=== PATIENT | female | born 1975 | race Caucasian/White ===

== ENCOUNTER → 2019-05-11 11:02 | Outpatient (BNVA) | payer MEDICARE, SELFPAY | PROVIDERS: Family Provider Pediatrics; Visit Provider Nurse Practitioner Psychiatric/Mental Health | DX: F33.2 Major depressive disorder, recurrent severe without psychotic features (principal); F41.1 Generalized anxiety disorder; F50.81 Binge eating disorder | CPT/HCPCS: 99213 ==

== ENCOUNTER → 2019-08-12 08:01 | Outpatient (BNVA) | payer MEDICARE, SELFPAY | PROVIDERS: Family Provider Pediatrics; Visit Provider Social Worker | DX: F50.81 Binge eating disorder (principal); F33.2 Major depressive disorder, recurrent severe without psychotic features; F41.1 Generalized anxiety disorder | CPT/HCPCS: 90834 ==

== ENCOUNTER → 2020-03-17 09:14 | Outpatient (BNVA) | payer MEDICARE, SELFPAY | PROVIDERS: Family Provider Pediatrics; PCP Nurse Practitioner Family; Visit Provider Registered Nurse | DX: Z51.81 Encounter for therapeutic drug level monitoring (principal); Z79.01 Long term (current) use of anticoagulants; E66.01 Morbid (severe) obesity due to excess calories; I10 Essential (primary) hypertension; R73.03 Prediabetes; E55.9 Vitamin D deficiency, unspecified; E03.9 Hypothyroidism, unspecified; F41.1 Generalized anxiety disorder; F33.2 Major depressive disorder, recurrent severe without psychotic features; G47.00 Insomnia, unspecified | CPT/HCPCS: 80053; 81000; 82306; 83036; 84443; 85025; 85610 ==

== ENCOUNTER → 2020-04-28 12:02 | Outpatient (BNVA) | payer MEDICARE, SELFPAY | PROVIDERS: Family Provider Pediatrics; PCP Nurse Practitioner Family; Visit Provider Registered Nurse | DX: I82.409 Acute embolism and thrombosis of unspecified deep veins of unspecified lower extremity (principal) | CPT/HCPCS: 85610 ==

== ENCOUNTER → 2020-05-04 15:39 | Outpatient (BNVA) | payer MEDICARE, SELFPAY | PROVIDERS: Family Provider Pediatrics; PCP Nurse Practitioner Family; Visit Provider Registered Nurse | DX: I82.409 Acute embolism and thrombosis of unspecified deep veins of unspecified lower extremity (principal) | CPT/HCPCS: 85610 ==

== ENCOUNTER → 2020-05-06 12:02 | Outpatient (BNVA) | payer MEDICARE, SELFPAY | PROVIDERS: Family Provider Pediatrics; PCP Nurse Practitioner Family; Visit Provider Registered Nurse | DX: I82.409 Acute embolism and thrombosis of unspecified deep veins of unspecified lower extremity (principal) | CPT/HCPCS: 85610 ==

== ENCOUNTER → 2020-05-09 15:40 | Outpatient (BNVA) | payer MEDICARE, SELFPAY | PROVIDERS: Family Provider Pediatrics; PCP Registered Nurse; Visit Provider Family Medicine | DX: I82.409 Acute embolism and thrombosis of unspecified deep veins of unspecified lower extremity (principal) | CPT/HCPCS: 85610 ==

== ENCOUNTER → 2020-06-09 17:03 | Outpatient (BNVA) | payer MEDICARE, SELFPAY | PROVIDERS: Family Provider Pediatrics; PCP Registered Nurse; Visit Provider Nurse Practitioner Family | DX: M25.562 Pain in left knee (principal); W17.89XA Other fall from one level to another, initial encounter; F17.211 Nicotine dependence, cigarettes, in remission | CPT/HCPCS: 73562 ==

== ENCOUNTER → 2020-08-30 15:36 | Outpatient (BNVA) | payer MEDICARE, SELFPAY | PROVIDERS: Family Provider Pediatrics; PCP Registered Nurse; Visit Provider Family Medicine | DX: M32.9 Systemic lupus erythematosus, unspecified (principal); R14.0 Abdominal distension (gaseous) | CPT/HCPCS: 80053; 85025; 85651; 86038; 86140; 86431 ==

== ENCOUNTER → 2020-09-27 14:37 | Outpatient (BNVA) | payer MEDICARE, SELFPAY | PROVIDERS: Family Provider Pediatrics; PCP Family Medicine; Visit Provider Family Medicine | DX: E83.51 Hypocalcemia (principal); R53.83 Other fatigue; K58.2 Mixed irritable bowel syndrome; Z68.41 Body mass index [BMI] 40.0-44.9, adult | CPT/HCPCS: 82310; 83970; 84443 ==

== ENCOUNTER → 2020-09-30 14:26 | Outpatient (BNVA) | payer MEDICARE, SELFPAY | PROVIDERS: Family Provider Pediatrics; PCP Family Medicine; Visit Provider Family Medicine | DX: E83.51 Hypocalcemia (principal); R53.83 Other fatigue | CPT/HCPCS: 82310; 83970 ==

== ENCOUNTER → 2020-10-27 09:16 | Outpatient (BNVA) | payer MEDICARE, SELFPAY | PROVIDERS: Family Provider Pediatrics; PCP Family Medicine; Visit Provider Internal Medicine Rheumatology | DX: M32.9 Systemic lupus erythematosus, unspecified (principal); D68.61 Antiphospholipid syndrome; Z79.899 Other long term (current) drug therapy; I82.409 Acute embolism and thrombosis of unspecified deep veins of unspecified lower extremity; Z11.59 Encounter for screening for other viral diseases; Z11.1 Encounter for screening for respiratory tuberculosis; R76.8 Other specified abnormal immunological findings in serum; M70.61 Trochanteric bursitis, right hip; M70.62 Trochanteric bursitis, left hip; Y93.9 Activity, unspecified; M77.11 Lateral epicondylitis, right elbow; M75.51 Bursitis of right shoulder; R53.83 Other fatigue; Z71.89 Other specified counseling | CPT/HCPCS: 99205 ==

== ENCOUNTER 2020-10-27 11:58 | Outpatient (CLI) | payer MEDICARE, SELFPAY ==
--- NOTE | 2020-10-27 12:05 | XR_ITS ---
WS: [id number] Left foot, 3 views, 10/27/2020 Clinical Data: Z79.899 - Other chcf (current) drug therapy Comparison: None. Findings: No fractures or dislocations are seen. No bone destruction or erosion is noted. There is a bunion at the head of the left first metatarsal.There is a small Achilles spur. XR/XR foot LT min 3V* [id number] Impression: Bunion at the head of left first metatarsal.
--- NOTE | 2020-10-27 12:05 | XR_ITS ---
WS: [id number] Right foot, 3 views, 10/27/2020 Clinical Data: Z79.899 - Other half-way (current) drug therapy Comparison: None. Findings: No fractures or dislocations are seen. No bone destruction or erosion is noted. There is a bunion at the head of the right first metatarsal.There is a plantar spur and an Achilles spur. XR/XR foot RT min 3V* [id number] Impression: Bunion at the head of the right first metatarsal.
--- NOTE | 2020-10-27 12:05 | XR_ITS ---
WS: [id number] Right knee, 3 views, 10/27/2020 Clinical Data: Z79.899 - Other longterm (current) drug therapy Comparison: None. Findings: No fractures or dislocations are seen. The joint spaces are normal. The patella is intact. The soft t issues are unremarkable. XR/XR knee RT 3V* [id number] Impression: Negative right knee. Kellgren-Hilton Classification: grade 0 (none): definite absence of x-ray adri nges of osteoarthritis
--- NOTE | 2020-10-27 12:05 | XR_ITS ---
WS: [id number] Pelvis, AP view, 10/27/2020 Clinical Data: Z79.899 - Other fpc (current) drug therapy Comparison: None. Findings: No fractures or dislocations are seen. The SI joints and pubic symphysis are intact. The soft tissues are not remarkable. There is acetabular lipping bilaterally. The hips show minimal narrowing, sclerosis or cyst formation . The patient has bilateral fallopian tube occlusion devices. XR/XR pelvis 1-2V* [id number] Impression: Mild bilateral osteoarthritis of the hips.
[2020-10-27 12:46] LABS: Add Urine Culture? No; Bacteria Urine 1+ /hpf; Bilirubin Urine Neg (Negative); Blood Urine Neg (Negative); Glucose Urine UA Norm (Normal); Ketones Urine Negative (Negative); Leukocyte Esterase Urine Trace (Negative); Nitrate Urine Negative (Negative); Protein Urine Neg (Negative); Squamous Epithelial Cell Urine 0-4 /hpf (0-5); Urine Appearance SL Hazy (CLEAR); Urine Color Yellow (Yellow); Urobilinogen Urine Norm (Negative); WBC Urine 0-4 /hpf (0-5); pH Urine 5 (5-7)
[2020-10-27 12:54] LABS: C Reactive Protein 1.8 mg/L (0.0-4.9)
[2020-10-27 12:56] LABS: Urine Creatinine 140 mg/dL (28-217); Urine Protein Random 8 mg/dL
[2020-10-27 13:09] LABS: 25 Hydroxy Vitamin D 31 ng/mL (30-100)
[2020-10-27 13:32] LABS: Erythrocyte Sedimentation Rate 14 mm/hr (0-15)
[2020-10-27 13:38] LABS: Complement C3 116 mg/dL (90-180)
[2020-10-27 13:39] LABS: Hepatitis B Core AB, Total Non-Reactive (Nonreactive); Hepatitis B Surface Antigen Non-Reactive (Nonreactive); Hepatitis C Virus Antibody Non-Reactive (Nonreactive)
[2020-10-29 16:24] LABS: Quantiferon Mitogen >10.00 IU/mL; Quantiferon Nil 0.02 IU/mL; Quantiferon Plus TB2 0.01 IU/mL; Quantiferon TB Gold NEGATIVE (NEGATIVE)
[2020-10-29 19:42] LABS: HLA-B27 NEGATIVE (NEGATIVE)
== END 2020-10-27 11:59 | disposition home or self-care (01) ==
LOC: RAD 12:03 → LAB 12:06
PROVIDERS: PCP Family Medicine; Visit Provider Internal Medicine Rheumatology
DX: M19.90 Unspecified osteoarthritis, unspecified site (principal); M32.9 Systemic lupus erythematosus, unspecified; M45.9 Ankylosing spondylitis of unspecified sites in spine; Z79.899 Other long term (current) drug therapy; R76.8 Other specified abnormal immunological findings in serum; Z11.59 Encounter for screening for other viral diseases
CPT/HCPCS: 36415; 72170; 73562; 73630; 81001; 82306; 82570; 84156; 85651; 86140; 86160; 86480; 86704; 86803; 86812; 87340

== ENCOUNTER → 2020-10-28 16:18 | Outpatient (BNVA) | payer MEDICARE, SELFPAY | PROVIDERS: PCP Family Medicine; Visit Provider Registered Nurse Neonatal Intensive Care | DX: Z20.822 Contact with and (suspected) exposure to COVID-19 (principal) | CPT/HCPCS: 87635 ==

== ENCOUNTER → 2020-12-21 14:48 | Outpatient (BNVA) | payer MEDICARE, SELFPAY | PROVIDERS: PCP Family Medicine; Visit Provider Internal Medicine Rheumatology | DX: M32.9 Systemic lupus erythematosus, unspecified (principal); D68.61 Antiphospholipid syndrome; I82.409 Acute embolism and thrombosis of unspecified deep veins of unspecified lower extremity; Z79.899 Other long term (current) drug therapy; Z71.89 Other specified counseling | CPT/HCPCS: 80076; 82565; 85025; 86140; 99214 ==

== ENCOUNTER → 2021-05-31 08:27 | Outpatient (BNVA) | payer MEDICARE, SELFPAY | PROVIDERS: PCP Family Medicine; Visit Provider Internal Medicine Rheumatology | DX: M32.9 Systemic lupus erythematosus, unspecified (principal); D68.61 Antiphospholipid syndrome; M18.9 Osteoarthritis of first carpometacarpal joint, unspecified; G89.29 Other chronic pain; M25.562 Pain in left knee; M25.551 Pain in right hip; Z79.899 Other long term (current) drug therapy; Z86.718 Personal history of other venous thrombosis and embolism; Z79.01 Long term (current) use of anticoagulants; Z71.89 Other specified counseling; Z87.891 Personal history of nicotine dependence | CPT/HCPCS: 80076; 82565; 85025; 86140; 99214 ==

== ENCOUNTER 2021-05-31 09:52 | Outpatient (CLI) | payer MEDICARE, SELFPAY ==
[2021-05-31 10:37] LABS: Basophils # 0.1 10^3/uL (0.0-0.1); Basophils % 0.9 %; Eosinophils # 0.2 10^3/uL (0.0-0.8); Eosinophils % 2.8 %; Hematocrit 43.6 % (37.0-47.0); Hemoglobin 14.5 g/dL (11.5-15.3); Lymphocytes # 1.5 10^3/uL (0.8-4.8); Lymphocytes % 17.9 %; Mean Corpuscular HGB Conc 33.3 g/dL (30.0-36.0); Mean Corpuscular Hemoglobin 31.3 pg (28.0-34.0); Mean Corpuscular Volume 94.2 fl (81-99); Mean Platelet Volume 9.3 fL (7.4-10.4); Monocytes # 0.9 10^3/uL (0.2-0.9); Monocytes % 10.1 %; Neutrophils # 5.74 10^3/uL (1.8-7.7); Neutrophils % 67.8 %; Nucleated Red Blood Cells % 0 %; Platelet Count 212 10^3/cmm (130-400); Red Blood Count 4.63 10^6/uL (4.1-5.3); Red Cell Distribution Width 13.2 % (12.1-15.1); White Blood Count 8.5 10^3/uL (4.0-10.0)
[2021-05-31 11:01] LABS: Alanine Aminotransferase 27 U/L (0-33); Albumin Level 4.1 g/dL (3.5-5.2); Alkaline Phosphatase 54 IU/L (35-105); Aspartate Amino Transferase 21 U/L (0-32); Globulin 3.2 g/dL (1.3-4.6); Glomerular Filtration Rate 90.1 mL/min (90-130); Total Bilirubin 0.3 mg/dL (0.15-1.2); Total Protein 7.3 g/dL (6.6-8.7)
== END 2021-05-31 09:53 | disposition home or self-care (01) ==
LOC: LAB 09:57
PROVIDERS: PCP Family Medicine; Visit Provider Internal Medicine Rheumatology
DX: M32.9 Systemic lupus erythematosus, unspecified (principal); Z79.899 Other long term (current) drug therapy
CPT/HCPCS: 80076; 82565; 85025; 86140; 99214

== ENCOUNTER 2021-08-02 20:00 | Outpatient (CLI) | payer MEDICARE, SELFPAY | END 2021-08-02 20:01 | disposition home or self-care (01) | LOC: SLEEP 08-03 09:31 | PROVIDERS: PCP Family Medicine; Visit Provider Family Medicine | DX: G47.10 Hypersomnia, unspecified (principal); G47.33 Obstructive sleep apnea (adult) (pediatric) | CPT/HCPCS: 95810 ==

== ENCOUNTER 2021-09-19 15:06 | Outpatient (CLI) | payer MEDICARE, SELFPAY ==
[2021-09-19 17:20] LABS: Basophils # 0.1 10^3/uL (0.0-0.1); Basophils % 0.8 %; Eosinophils # 0.2 10^3/uL (0.0-0.8); Eosinophils % 2.8 %; Hematocrit 42.1 % (37.0-47.0); Hemoglobin 14.4 g/dL (11.5-15.3); Lymphocytes % 23.1 %; Mean Corpuscular HGB Conc 34.2 g/dL (30.0-36.0); Mean Corpuscular Hemoglobin 31.1 pg (28.0-34.0); Mean Corpuscular Volume 90.9 fl (81-99); Monocytes # 0.8 10^3/uL (0.2-0.9); Monocytes % 8.8 %; Neutrophils # 5.54 10^3/uL (1.8-7.7); Nucleated Red Blood Cells % 0 %; Platelet Count 238 10^3/cmm (130-400); Red Blood Count 4.63 10^6/uL (4.1-5.3); Red Cell Distribution Width 13.2 % (12.1-15.1); White Blood Count 8.7 10^3/uL (4.0-10.0)
[2021-09-19 18:25] LABS: Alanine Aminotransferase 27 U/L (0-33); Albumin Level 4.1 g/dL (3.5-5.2); Alkaline Phosphatase 54 IU/L (35-105); Aspartate Amino Transferase 19 U/L (0-32); C Reactive Protein 3.7 mg/L (0.0-4.9); Globulin 2.7 g/dL (1.3-4.6); Glomerular Filtration Rate 90.1 mL/min (90-130); Total Bilirubin 0.4 mg/dL (0.15-1.2); Total Protein 6.8 g/dL (6.6-8.7)
== END 2021-09-19 15:07 | disposition home or self-care (01) ==
LOC: LAB 15:10
PROVIDERS: PCP Family Medicine; Visit Provider Internal Medicine Rheumatology
DX: M19.90 Unspecified osteoarthritis, unspecified site (principal); M32.9 Systemic lupus erythematosus, unspecified; D68.61 Antiphospholipid syndrome; Z79.899 Other long term (current) drug therapy
CPT/HCPCS: 36415; 80076; 82565; 85025; 86140

== ENCOUNTER → 2021-09-20 09:13 | Outpatient (BNVA) | payer MEDICARE, SELFPAY | PROVIDERS: PCP Family Medicine; Visit Provider Internal Medicine Rheumatology | DX: Z79.899 Other long term (current) drug therapy (principal); R10.817 Generalized abdominal tenderness; G89.29 Other chronic pain; M25.562 Pain in left knee; M25.551 Pain in right hip; Z86.718 Personal history of other venous thrombosis and embolism; Z71.89 Other specified counseling; M32.9 Systemic lupus erythematosus, unspecified; D68.61 Antiphospholipid syndrome | CPT/HCPCS: 99214 ==

== ENCOUNTER 2021-09-21 09:19 | Emergency (ER) | payer MEDICARE, SELFPAY ==
[2021-09-21 09:39] VITALS: BP 140/96; PULSE 97; RESP 18; TEMP 37.4; O2SAT 96; BMI 46.5
[2021-09-21] MEDS: ketorolac 30 mg/mL INJ 15 MG IVP (11:07)
[2021-09-21] MEDS: sodium chloride 0.9% 500 ML IV (11:07)
--- NOTE | 2021-09-21 11:07 | ED_ITS ---
HPI - Abdominal Pain General: Chief Complaint: Abdominal Pain Stated Complaint: lower abdomen pain Time Seen by Provider: 09/21/21 10:29 History of Present Illness: 45-year-old female presents with abdominal pain. She reports it started in her lower abdominal region couple days ago and radiates into her back on her diffuse length. The pain seems to be more associated on the right side than the left. She denies any fever, chills. She reports some little bit looser stool but no katy diarrhea. She denies any urinary symptoms. She also denies any nausea, vomiting. Associated Symptoms: Denies chills, fever(s), nausea and vomiting Review of Systems Const: Denies: fever(s), chills or body aches Eyes: Denies: change in vision ENMT: Denies: throat pain Card: Denies: chest pain or palpitations Resp: Denies: dyspnea or productive cough GI: Reports: abdominal pain; Denies: nausea or vomiting : Denies: flank pain or difficulty voiding Musc: Denies: neck pain or back pain Skin/Breast: Denies: rash or pruritus Neuro: Denies: headache(s) or numbness in extremities PFSH ED PFSH: Medical History Acid reflux Binge eating disorder DVT (deep venous thrombosis) Essential hypertension Generalized anxiety disorder High risk medication use Immunization counseling Insomnia disorder Lupus SLE Major depressive disorder, recurrent severe without psychotic features Prediabetes Primary antiphospholipid syndrome SLE (systemic lupus erythematosus related syndrome) Family History Other Diabetes Palpitations Tachycardia Social History Smoking and tobacco status: never smoked Alcohol intake: current Alcohol intake frequency: holidays/special occasions only History of recent travel: No Physical Exam Const: COMMON NORMALS: no acute distress, average body habitus and patient oriented x3 HENMT: COMMON NORMALS: normocephalic and atraumatic HEAD & SCALP: normocephalic and atraumatic Resp: COMMON NORMALS: normal respiratory effort, No retractions and No use of accessory muscles Cardio: COMMON NORMALS: regular rate and regular rhythm RATE: regular rate RHYTHM: regular rhythm GI: COMMON NORMALS: Normal to inspection, nondistended, normoactive bowel sounds present, Soft to palpation and non-tender PALPATION: Yes Soft to palpation : COMMON NORMALS: Yes no CVA tenderness BLADDER/KIDNEY EXAM: Yes no CVA tenderness Back/Pelvis: COMMON NORMALS: no CVA tenderness Neuro: COMMON NORMALS: patient oriented x3 Course Vital Signs: Vital signs: Vital Signs Temperature 99.4 F 09/21/21 09:39 Pulse Rate 89 09/21/21 12:00 Respiratory Rate 16 09/21/21 12:00 Blood Pressure 114/82 09/21/21 12:00 Pulse Oximetry 97 09/21/21 12:00 MDM - Abdominal Pain Medical Decision Making Patient with no significant acute findings on her labs. Patient CT shows a complex left ovarian cyst however there is no other acute findings. Discussed with patient Tylenol, ibuprofen and warm heating pad and other [id number] treatment for ovarian cyst. If she continues to have problems she is to follow- up with her primary care provider or her pathology technologist. Patient stable and discharged home Lab Data : 09/21/21 11:09 09/21/21 11:09 Labs/Radiology: Radiology Impressions Abdomen/Pelvis CT 09/21/21 12:08 IMPRESSION: 1. Mildly complex LEFT ovarian cyst/hemorrhagic cyst measures 3.6 x 3.1 cm. 2. No free fluid in the pelvis. 3. Moderate chronic appearing changes of diverticulosis throughout the sigmoid colon. Numerous diverticula within the distal colon. Early changes of acute diverticulitis may not be apparent. At this time there is no evidence for acute diverticulitis or inflammation. 4. No evidence for appendicitis. Laboratory Results WBC 9.3 10^3/uL (4.0-10.0) 09/21/21 11:09 RBC 4.61 10^6/uL (4.1-5.3) 09/21/21 11:09 Hgb 14.4 g/dL (11.5-15.3) 09/21/21 11:09 Hct 41.6 % (37.0-47.0) 09/21/21 11:09 MCV 90.2 fl (81-99) 09/21/21 11:09 MCH 31.2 pg (28.0-34.0) 09/21/21 11:09 MCHC 34.6 g/dL (30.0-36.0) 09/21/21 11:09 RDW 13.1 % (12.1-15.1) 09/21/21 11:09 Plt Count 209 10^3/cmm (130-400) 09/21/21 11:09 MPV 9.7 fL (7.4-10.4) 09/21/21 11:09 Neut % (Auto) 72.0 % 09/21/21 11:09 Lymph % (Auto) 14.4 % 09/21/21 11:09 [place] % (Auto) 9.4 % 09/21/21 11:09 Eos % (Auto) 2.8 % 09/21/21 11:09 Baso % (Auto) 0.8 % 09/21/21 11:09 Neut # (Auto) 6.72 10^3/uL (1.8-7.7) 09/21/21 11:09 Lymph # (Auto) 1.3 10^3/uL (0.8-4.8) 09/21/21 11:09 [place] # (Auto) 0.9 10^3/uL (0.2-0.9) 09/21/21 11:09 Eos # (Auto) 0.3 10^3/uL (0.0-0.8) 09/21/21 11:09 Baso # (Auto) 0.1 10^3/uL (0.0-0.1) 09/21/21 11:09 Nucleated RBC % (auto) 0 % 09/21/21 11:09 Nucleated RBCs # 0.0 /100WBC 09/21/21 11:09 Sodium 138 mmol/L (136-145) 09/21/21 11:09 Potassium 4.6 mmol/L (3.5-5.1) 09/21/21 11:09 Chloride 102 mmol/L (98-107) 09/21/21 11:09 Carbon Dioxide 26 mmol/L (22-29) 09/21/21 11:09 Anion Gap 14.6 (5-19) 09/21/21 11:09 BUN 9 mg/dL (6-20) 09/21/21 11:09 Creatinine 0.7 mg/dL (0.5-0.9) 09/21/21 11:09 GFR Calculation 90.1 mL/min (90-130) 09/21/21 11:09 Glucose 96 mg/dL (65-115) 09/21/21 11:09 Calculated Osmolality 285 mOsm/kg (285-295) 09/21/21 11:09 Calcium 9.4 mg/dL (8.5-10.5) 09/21/21 11:09 Magnesium 1.8 mg/dL (1.7-2.3) 09/21/21 11:09 Total Bilirubin 0.6 mg/dL (0.15-1.2) 09/21/21 11:09 AST 15 U/L (0-32) 09/21/21 11:09 ALT 21 U/L (0-33) 09/21/21 11:09 Alkaline Phosphatase 54 IU/L (35-105) 09/21/21 11:09 Total Protein 7.1 g/dL (6.6-8.7) 09/21/21 11:09 Albumin 3.8 g/dL (3.5-5.2) 09/21/21 11:09 Globulin 3.3 g/dL (1.3-4.6) 09/21/21 11:09 Lipase 12 U/L (13-60) L 09/21/21 11:09 HCG, Qual Negative (Negative) 09/21/21 11:19 Urine Color Yellow (Yellow) 09/21/21 11:19 Urine Appearance Clear (CLEAR) 09/21/21 11:19 Urine pH 5 (5-7) 09/21/21 11:19 Ur Specific [place] 1.020 (1.005-1.030) 09/21/21 11:19 Urine Protein Neg (Negative) 09/21/21 11:19 Urine Glucose (UA) Norm (Normal) 09/21/21 11:19 Urine Ketones Negative (Negative) 09/21/21 11:19 Urine Blood Neg (Negative) 09/21/21 11:19 Urine Nitrate Negative (Negative) 09/21/21 11:19 Urine Bilirubin Neg (Negative) 09/21/21 11:19 Urine Urobilinogen Norm mg/dL (Negative) 09/21/21 11:19 Ur Leukocyte Esterase Negative (Negative) 09/21/21 11:19 Discharge Plan Discharge Patient Disposition: Home Clinical Impression: Complex cyst of left ovary Condition: Stable Prescriptions: No Action Benlysta 200 mg/mL auto-injector 200 mg SUBCUT Q7D Qty: 4 3RF Rx Instructions: On Wednesdays hydroxychloroquine 200 mg tablet 200 mg PO BID Qty: 60 3RF loratadine [Claritin] 10 mg tablet 10 mg PO DAILY 0RF folic acid 1 mg tablet 1 mg PO DAILY Qty: 90 3RF tramadol 50 mg tablet 50 mg PO TID PRN (Reason: pain) Qty: 30 0RF lisinopril 20 mg tablet 20 mg PO DAILY Qty: 90 1RF albuterol sulfate [ProAir HFA] 90 mcg/actuation HFA aerosol inhaler 2 puff inhalation Q6H PRN (Reason: shortness of breath or wheezing) Qty: 8.5 0RF dicyclomine 10 mg capsule 10 mg PO BID Qty: 180 1RF sertraline 100 mg tablet 20 mg PO DAILY 0RF prednisone 5 mg tablet 5 mg PO DAILY PRN (Reason: Arthritis Flare Up) 0RF warfarin 6 mg tablet See Rx Instructions .ROUTE .COMPLEX 0RF Rx Instructions: 6 mg orally On Sat, , , , Sat, Sun 9 mg orally On Saturday methotrexate sodium 2.5 mg tablet 15 mg PO Q7D 0RF Rx Instructions: On Fridays trazodone 100 mg tablet 200 mg PO BEDTIME 0RF Rx Instructions: Take two tablets at bedtime pantoprazole 40 mg tablet,delayed release (DR/EC) 40 mg PO BID 0RF Vitamin D3 25 mcg (1,000 unit) Capsule 25 mcg PO DAILY 0RF bupropion HCl 200 mg tablet sustained-release 12 hr 200 mg PO Q7D 0RF Rx Instructions: On Wednesdays Arthritis Pain (diclofenac) 1 % gel 2 g topical QID PRN (Reason: Pain) 0RF Rx Instructions: apply to single elbow, wrist or hand; for hand includes palm/fingers/back of hand Discharge Orders: Discharge ED (Routine); Ordered 09/21/21 Ordered By: Houston Norris Referrals: Kendy Smith DO [Primary Care Provider] - Discharge Diet: Advance as tolerated Discharge Activity: Resume usual activity Patient Instructions: Ovarian Cyst (ED), Opioid Safety Activity Restrictions/Additional Instructions: Tylenol or ibuprofen as needed for pain Heating pad to affected area as needed for pain Follow-up with your primary care provider or pathology technologist as needed Coding Level of Care Code ED Acid Maker for Chg Fwd Exam Detailed
[2021-09-21 11:36] LABS: Add Urine Microscopic? NO; Charge for UA Resulting for Rev
[2021-09-21 11:41] LABS: Urine Appearance Clear (CLEAR); Urine Color Yellow (Yellow); pH Urine 5 (5-7)
[2021-09-21 11:42] LABS: Basophils # 0.1 10^3/uL (0.0-0.1); Basophils % 0.8 %; Eosinophils # 0.3 10^3/uL (0.0-0.8); Eosinophils % 2.8 %; Hematocrit 41.6 % (37.0-47.0); Hemoglobin 14.4 g/dL (11.5-15.3); Lymphocytes # 1.3 10^3/uL (0.8-4.8); Lymphocytes % 14.4 %; Mean Corpuscular HGB Conc 34.6 g/dL (30.0-36.0); Mean Corpuscular Hemoglobin 31.2 pg (28.0-34.0); Mean Corpuscular Volume 90.2 fl (81-99); Mean Platelet Volume 9.7 fL (7.4-10.4); Monocytes # 0.9 10^3/uL (0.2-0.9); Monocytes % 9.4 %; Neutrophils # 6.72 10^3/uL (1.8-7.7); Nucleated Red Blood Cells % 0 %; Platelet Count 209 10^3/cmm (130-400); Red Blood Count 4.61 10^6/uL (4.1-5.3); Red Cell Distribution Width 13.1 % (12.1-15.1); White Blood Count 9.3 10^3/uL (4.0-10.0)
[2021-09-21 11:42] LABS: Bilirubin Urine Neg (Negative); Blood Urine Neg (Negative); Glucose Urine UA Norm (Normal); Ketones Urine Negative (Negative); Leukocyte Esterase Urine Negative (Negative); Nitrate Urine Negative (Negative); Protein Urine Neg (Negative); Urobilinogen Urine Norm (Negative)
[2021-09-21 11:46] LABS: HCG Qualitative Urine. Negative (Negative)
[2021-09-21 12:00] VITALS: BP 114/82; PULSE 89; RESP 16; O2SAT 97
[2021-09-21 12:06] LABS: Alanine Aminotransferase 21 U/L (0-33); Albumin Level 3.8 g/dL (3.5-5.2); Alkaline Phosphatase 54 IU/L (35-105); Anion Gap 14.6 (5-19); Aspartate Amino Transferase 15 U/L (0-32); Blood Urea Nitrogen 9 mg/dL (6-20); Calcium 9.4 mg/dL (8.5-10.5); Carbon Dioxide 26 mmol/L (22-29); Chloride 102 mmol/L (98-107); Globulin 3.3 g/dL (1.3-4.6); Glomerular Filtration Rate 90.1 mL/min (90-130); Glucose 96 mg/dL (65-115); Lipase 12 U/L (13-60); Magnesium 1.8 mg/dL (1.7-2.3); Osmolality Calculated 285 mOsm/kg (285-295); Potassium 4.6 mmol/L (3.5-5.1); Sodium 138 mmol/L (136-145); Total Bilirubin 0.6 mg/dL (0.15-1.2); Total Protein 7.1 g/dL (6.6-8.7)
--- NOTE | 2021-09-21 12:08 | CT_ITS ---
WS: [id number] CT ABDOMEN AND PELVIS WITH CONTRAST HISTORY: abd pain TECHNIQUE: Imaging performed of the abdomen and pelvis with IV contrast. Single phase imaging of the abdomen. Coronal and sagittal reformats are submitted. All CT scans at [facility] use at [address] one of these dose optimization techniques: automated exposure control; mA and/or kV adjustment per patient size (includes targeted exams where dose is matched to clinical indication); or iterative re construction. IV CONTRAST: Omnipaque 350; 90 mL IV. Oral contrast: No DLP: 1839.81 mGy.cm COMPARISON: None available. Lower thorax: Very some minimal atelectatic changes at the lung bases. No pneumonia. Heart is normal size. Small hiatal hernia. Liver/biliary system: Normal size with no intrahepatic dilatation. Gallbladder: Normal. No gallstones or wall thickening. No pericholecystic fluid. Pancreas: Normal size pancreas and pancreatic duct. No adjacent inflammation. Spleen: Normal size spleen. No mass or infarct. Adrenal glands: Normal. Right kidney: Normal. Left kidney: Normal. Aorta: Normal. Lymphadenopathy: A small retroperitoneal lymph nodes. No adenopathy. Free fluid: None. GI tract: Decompressed stomach. No small bowel obstruction. No evidence for appendicitis. Numerous di verticula beginning in the descending colon through the sigmoid. Moderate diffuse wall thickening thr oughout the sigmoid colon with numerous diverticula. No definite acute inflammation. Majority of thes e changes are chronic. Abdominal wall: Fat containing umbilical hernia. Pelvis: Uterus is midline and contains a short inserts. As a complex mass in the LEFT adnexa measurin g 3.6 x 3.1 cm. Differential includes ovarian cyst with a small hemorrhagic component or complex cyst . Bones: Unremarkable. CT/CT abdomen pelvis w con* [id number] IMPRESSION: 1. Mildly complex LEFT ovarian cyst/hemorrhagic cyst measures 3.6 x 3.1 cm. 2. No free fluid in the pelvis. 3. Moderate chronic appearing changes of diverticulosis throughout the sigmoid colon. Numerous diverticula within the distal colon. Early changes of acute di verticulitis may not be apparent. At this time there is no evidence for acute d iverticulitis or inflammation. 4. No evidence for appendicitis.
[2021-09-21] MEDS: morphine 4 mg/mL SDV 1 mL 2 MG IVP (13:30)
[2021-09-21] MEDS: iohexol 350 mg/mL 100 mL Btl IV (14:18)
[2021-09-21 14:57] VITALS: BP 127/77; PULSE 100; RESP 16; O2SAT 95
== END 2021-09-21 15:00 | disposition home or self-care (01) ==
PROVIDERS: Emergency Provider Student in an Organized Health Care Education/Training Program; PCP Family Medicine
DX: N83.202 Unspecified ovarian cyst, left side (principal)
CPT/HCPCS: 74177; 80053; 81003; 81025; 83690; 83735; 85025; 96361; 96374; 96375; 99284; J1885; J2270; J7040; Q9967

== ENCOUNTER → 2021-10-24 08:40 | Outpatient (BNVA) | payer MEDICARE, SELFPAY | PROVIDERS: PCP Family Medicine; Visit Provider Family Medicine | DX: K57.92 Diverticulitis of intestine, part unspecified, without perforation or abscess without bleeding (principal); Z13.6 Encounter for screening for cardiovascular disorders; N83.202 Unspecified ovarian cyst, left side; I10 Essential (primary) hypertension | CPT/HCPCS: 80061; 84443 ==

== ENCOUNTER 2021-10-25 20:00 | Outpatient (CLI) | payer MEDICARE, SELFPAY | END 2021-10-25 20:01 | disposition home or self-care (01) | LOC: SLEEP 10-26 07:23 | PROVIDERS: PCP Family Medicine; Visit Provider Family Medicine | DX: G47.30 Sleep apnea, unspecified (principal) | CPT/HCPCS: 95811 ==

== ENCOUNTER 2021-11-02 10:42 | Outpatient (CLI) | payer MEDICARE, SELFPAY ==
[2021-11-02 11:13] VITALS: BP 124/85; PULSE 83; RESP 18; TEMP 36.9; O2SAT 96
[2021-11-02 11:34] LABS: Basophils # 0.1 10^3/uL (0.0-0.1); Basophils % 0.8 %; Eosinophils # 0.2 10^3/uL (0.0-0.8); Eosinophils % 2.9 %; Hematocrit 43.7 % (37.0-47.0); Hemoglobin 14.8 g/dL (11.5-15.3); Lymphocytes # 1.3 10^3/uL (0.8-4.8); Lymphocytes % 20.7 %; Mean Corpuscular HGB Conc 33.9 g/dL (30.0-36.0); Mean Corpuscular Hemoglobin 31.3 pg (28.0-34.0); Mean Corpuscular Volume 92.4 fl (81-99); Mean Platelet Volume 9.9 fL (7.4-10.4); Monocytes # 0.4 10^3/uL (0.2-0.9); Monocytes % 6.9 %; Neutrophils # 4.28 10^3/uL (1.8-7.7); Neutrophils % 68.2 %; Nucleated Red Blood Cells % 0 %; Platelet Count 227 10^3/cmm (130-400); Red Blood Count 4.73 10^6/uL (4.1-5.3); Red Cell Distribution Width 12.7 % (12.1-15.1); White Blood Count 6.3 10^3/uL (4.0-10.0)
[2021-11-02 11:52] LABS: Add Urine Microscopic? YES; Bilirubin Urine Neg (Negative); Blood Urine Neg (Negative); Glucose Urine UA Norm (Normal); Ketones Urine Negative (Negative); Leukocyte Esterase Urine Trace (Negative); Nitrate Urine Negative (Negative); Protein Urine Neg (Negative); Urine Appearance Clear (CLEAR); Urine Color Yellow (Yellow); Urobilinogen Urine Norm (Negative); pH Urine 5 (5-7)
[2021-11-02 11:53] LABS: Add Urine Culture? No; Bacteria Urine TRACE /hpf; RBC Urine 0-4 /hpf (0-2); Squamous Epithelial Cell Urine 0-4 /hpf (0-5); WBC Urine 0-4 /hpf (0-5)
[2021-11-02 11:54] LABS: Alanine Aminotransferase 23 U/L (0-33); Albumin Level 4.2 g/dL (3.5-5.2); Alkaline Phosphatase 49 IU/L (35-105); Aspartate Amino Transferase 16 U/L (0-32); Globulin 2.7 g/dL (1.3-4.6); Glomerular Filtration Rate 89.7 mL/min (90-130); Total Bilirubin 0.3 mg/dL (0.15-1.2); Total Protein 6.9 g/dL (6.6-8.7)
[2021-11-02] MEDS: sodium chloride 0.9% 250 ML 50 ML IV (11:56)
[2021-11-02] MEDS: acetaminophen 325 mg Tablet 650 MG PO (11:57)
[2021-11-02] MEDS: diphenhydrAMINE 50 mg/mL SDV 1mL 25 MG IVP (11:58)
[2021-11-02 12:16] LABS: Urine Creatinine 146 mg/dL (28-217); Urine Protein Random 8 mg/dL
== END 2021-11-02 10:43 | disposition home or self-care (01) ==
PROVIDERS: PCP Family Medicine; Referring Provider Internal Medicine Rheumatology; Visit Provider Internal Medicine Rheumatology
DX: M32.9 Systemic lupus erythematosus, unspecified (principal); Z79.899 Other long term (current) drug therapy
CPT/HCPCS: 80076; 81001; 82565; 82570; 84156; 85025; 96365; 96375; J0490; J1200; J2920; J7050

== ENCOUNTER → 2021-11-07 12:28 | Outpatient (BNVA) | payer MEDICARE, SELFPAY | PROVIDERS: PCP Family Medicine; Visit Provider Surgery | DX: Z87.19 Personal history of other diseases of the digestive system (principal); R10.9 Unspecified abdominal pain | CPT/HCPCS: 99203 ==

== ENCOUNTER 2021-11-09 06:30 | Outpatient (CLI) | payer MEDICARE, SELFPAY ==
--- NOTE | 2021-11-09 07:00 | US_ITS ---
WS: [id number] TRANSABDOMINAL PELVIC AND TRANSVAGINAL PELVIC ULTRASOUND HISTORY: left ovarian cyst COMPARISON: CT 09/21/2021 Uterus: 8.9 cm x 4.8 cm x 4.1 cm. Anteverted normal size uterus. Essure implants are present. Endometrium: Not well visualized. There is shadowing throughout the uterus which may be due to fibros is. No definite fibroids identified. Right ovary: 2.9 cm x 2.4 cm x 3.5 cm. Normal size and echogenicity. Normal vascularity. Left ovary: 4.0 cm x 2.9 cm x 3.8 cm. Several cysts are associated with the LEFT ovary. The largest i s a simple cyst measuring 3.6 x 3.2 x 2.7 cm. Similar size as compared to the recent CT. There are a few additional smaller follicles within the periphery of the ovary. No free fluid. US/US pelvic with transvaginal IMPRESSION: 1. LEFT ovarian cyst similar to the prior CT measures 3.6 x 3.2 x 2.7 cm. No s olid mass. There are additional small follicles within the LEFT ovary. 2. Poor visualization of the endometrium.
== END 2021-11-09 06:31 | disposition home or self-care (01) ==
LOC: RAD 06:31
PROVIDERS: PCP Family Medicine; Visit Provider Family Medicine
DX: N83.292 Other ovarian cyst, left side (principal)
CPT/HCPCS: 76830; 76856

== ENCOUNTER 2021-11-30 09:48 | Outpatient (CLI) | payer MEDICARE, SELFPAY ==
[2021-11-30 09:55] VITALS: BP 154/75; PULSE 75; RESP 18; TEMP 36.4; O2SAT 98
[2021-11-30] MEDS: sodium chloride 0.9% 250 ML 50 ML IV (10:33)
[2021-11-30] MEDS: acetaminophen 325 mg Tablet 650 MG PO (10:34)
[2021-11-30] MEDS: diphenhydrAMINE 50 mg/mL SDV 1mL 25 MG IVP (10:35)
[2021-11-30 12:02] VITALS: BP 137/76; PULSE 77; RESP 18; TEMP 36.5; O2SAT 97
== END 2021-11-30 09:49 | disposition home or self-care (01) ==
PROVIDERS: PCP Family Medicine; Visit Provider Internal Medicine Rheumatology
DX: M32.9 Systemic lupus erythematosus, unspecified (principal)
CPT/HCPCS: 96365; 96375; J0490; J1200; J2920; J7050

== ENCOUNTER 2021-12-28 09:42 | Outpatient (CLI) | payer MEDICARE, SELFPAY ==
[2021-12-28 10:21] VITALS: BP 101/70; PULSE 80; RESP 18; TEMP 36.8; O2SAT 96
[2021-12-28 10:28] LABS: Basophils # 0.1 10^3/uL (0.0-0.1); Eosinophils # 0.2 10^3/uL (0.0-0.8); Eosinophils % 2.8 %; Hematocrit 41.7 % (37.0-47.0); Hemoglobin 14.3 g/dL (11.5-15.3); Lymphocytes # 1.5 10^3/uL (0.8-4.8); Lymphocytes % 22.4 %; Mean Corpuscular HGB Conc 34.3 g/dL (30.0-36.0); Mean Corpuscular Volume 93.3 fl (81-99); Mean Platelet Volume 9.9 fL (7.4-10.4); Monocytes # 0.6 10^3/uL (0.2-0.9); Monocytes % 8.4 %; Neutrophils # 4.46 10^3/uL (1.8-7.7); Neutrophils % 64.7 %; Nucleated Red Blood Cells % 0 %; Platelet Count 223 10^3/cmm (130-400); Red Blood Count 4.47 10^6/uL (4.1-5.3); Red Cell Distribution Width 13.2 % (12.1-15.1); White Blood Count 6.9 10^3/uL (4.0-10.0)
[2021-12-28] MEDS: sodium chloride 0.9% 250 ML 50 ML IV (10:42)
[2021-12-28] MEDS: acetaminophen 325 mg Tablet 650 MG PO (10:43)
[2021-12-28] MEDS: diphenhydrAMINE 50 mg/mL SDV 1mL 25 MG IVP (10:45)
[2021-12-28 10:54] LABS: Add Urine Microscopic? YES; Bilirubin Urine Neg (Negative); Blood Urine Neg (Negative); Glucose Urine UA Norm (Normal); Ketones Urine Negative (Negative); Leukocyte Esterase Urine Negative (Negative); Nitrate Urine Negative (Negative); Protein Urine Trace (Negative); Urine Appearance Hazy (CLEAR); Urine Color Yellow (Yellow); Urobilinogen Urine 1 mg/dL (Negative); pH Urine 6 (5-7)
[2021-12-28 10:55] LABS: Add Urine Culture? No; Bacteria Urine TRACE /hpf; RBC Urine 0-4 /hpf (0-2); Squamous Epithelial Cell Urine 0-4 /hpf (0-5); WBC Urine 0-4 /hpf (0-5)
[2021-12-28 11:05] LABS: Urine Creatinine 311 mg/dL (28-217); Urine Protein Random 17 mg/dL
[2021-12-28 11:13] LABS: Alanine Aminotransferase 28 U/L (0-33); Albumin Level 4.1 g/dL (3.5-5.2); Alkaline Phosphatase 56 U/L (35-105); Aspartate Amino Transferase 19 U/L (0-32); Globulin 2.5 g/dL (1.3-4.6); Total Bilirubin 0.5 mg/dL (0.15-1.2); Total Protein 6.6 g/dL (6.6-8.7)
[2021-12-28 11:17] LABS: Glomerular Filtration Rate 89.7 mL/min (90-130)
[2021-12-28 12:26] VITALS: BP 119/78; PULSE 81; RESP 18; TEMP 36.7; O2SAT 95
== END 2021-12-28 09:43 | disposition home or self-care (01) ==
PROVIDERS: PCP Family Medicine; Visit Provider Internal Medicine Rheumatology
DX: M32.9 Systemic lupus erythematosus, unspecified (principal)
CPT/HCPCS: 80076; 81001; 82565; 82570; 84156; 85025; 96365; 96375; J0490; J1200; J2920; J7050

== ENCOUNTER → 2022-01-16 09:10 | Outpatient (BNVA) | payer MEDICARE, SELFPAY | PROVIDERS: PCP Family Medicine; Visit Provider Internal Medicine Rheumatology | DX: M32.9 Systemic lupus erythematosus, unspecified (principal); D68.61 Antiphospholipid syndrome; Z79.899 Other long term (current) drug therapy; Z71.89 Other specified counseling; G89.29 Other chronic pain; M25.551 Pain in right hip; M25.562 Pain in left knee; Z98.890 Other specified postprocedural states; Z86.718 Personal history of other venous thrombosis and embolism | CPT/HCPCS: 99214 ==

== ENCOUNTER 2022-01-25 09:41 | Outpatient (CLI) | payer MEDICARE, SELFPAY ==
[2022-01-25 09:56] VITALS: BP 143/85; PULSE 82; RESP 18; TEMP 36.6; O2SAT 98
[2022-01-25] MEDS: acetaminophen 325 mg Tablet 650 MG PO (10:19)
[2022-01-25] MEDS: sodium chloride 0.9% 250 ML 50 ML IV (10:19)
[2022-01-25] MEDS: diphenhydrAMINE 50 mg/mL SDV 1mL 25 MG IVP (10:20)
[2022-01-25 12:28] VITALS: BP 135/82; PULSE 86; RESP 18; TEMP 36.8; O2SAT 96
== END 2022-01-25 09:42 | disposition home or self-care (01) ==
PROVIDERS: PCP Family Medicine; Visit Provider Internal Medicine Rheumatology
DX: M32.9 Systemic lupus erythematosus, unspecified (principal)
CPT/HCPCS: 96365; 96375; J0490; J1200; J2920; J7050

== ENCOUNTER 2022-02-22 10:15 | Outpatient (CLI) | payer MEDICARE, SELFPAY ==
[2022-02-22 10:53] VITALS: BP 134/77; PULSE 75; RESP 18; TEMP 36.9; O2SAT 97
[2022-02-22 10:55] LABS: Add Urine Microscopic? NO; Charge for UA Resulting for Rev
[2022-02-22 10:57] LABS: Basophils # 0.1 10^3/uL (0.0-0.1); Eosinophils # 0.2 10^3/uL (0.0-0.8); Eosinophils % 3.2 %; Hematocrit 41.4 % (37.0-47.0); Lymphocytes # 1.3 10^3/uL (0.8-4.8); Lymphocytes % 18.5 %; Mean Corpuscular HGB Conc 33.8 g/dL (30.0-36.0); Mean Corpuscular Hemoglobin 32.4 pg (28.0-34.0); Mean Corpuscular Volume 95.8 fl (81-99); Mean Platelet Volume 9.4 fL (7.4-10.4); Monocytes # 0.8 10^3/uL (0.2-0.9); Neutrophils # 4.74 10^3/uL (1.8-7.7); Neutrophils % 65.5 %; Nucleated Red Blood Cells % 0 %; Platelet Count 205 10^3/cmm (130-400); Red Blood Count 4.32 10^6/uL (4.1-5.3); Red Cell Distribution Width 14.2 % (12.1-15.1); White Blood Count 7.2 10^3/uL (4.0-10.0)
[2022-02-22 10:59] LABS: Bilirubin Urine Neg (Negative); Blood Urine Neg (Negative); Glucose Urine UA Norm (Normal); Ketones Urine Negative (Negative); Leukocyte Esterase Urine Negative (Negative); Nitrate Urine Negative (Negative); Protein Urine Neg (Negative); Urine Appearance Clear (CLEAR); Urine Color Yellow (Yellow); Urobilinogen Urine Norm (Negative); pH Urine 6 (5-7)
[2022-02-22 11:14] LABS: Alanine Aminotransferase 29 U/L (0-33); Alkaline Phosphatase 56 U/L (35-105); Aspartate Amino Transferase 19 U/L (0-32); Globulin 2.9 g/dL (1.3-4.6); Glomerular Filtration Rate 89.7 mL/min (90-130); Total Bilirubin 0.4 mg/dL (0.15-1.2); Total Protein 6.9 g/dL (6.6-8.7)
[2022-02-22 11:20] LABS: Urine Creatinine 153 mg/dL (28-217); Urine Protein Random 9 mg/dL
[2022-02-22] MEDS: sodium chloride 0.9% 250 ML 50 ML IV (11:29)
[2022-02-22] MEDS: acetaminophen 325 mg Tablet 650 MG PO (11:31)
[2022-02-22] MEDS: diphenhydrAMINE 50 mg/mL SDV 1mL 25 MG IVP (11:33)
[2022-02-22 13:10] VITALS: BP 142/87; PULSE 73; RESP 18; TEMP 36.3; O2SAT 97
== END 2022-02-22 10:16 | disposition home or self-care (01) ==
PROVIDERS: PCP Family Medicine; Visit Provider Internal Medicine Rheumatology
DX: M32.9 Systemic lupus erythematosus, unspecified (principal)
CPT/HCPCS: 80076; 81003; 82565; 82570; 84156; 85025; 96365; 96375; J0490; J1200; J2920; J7050

== ENCOUNTER 2022-03-16 05:38 | Day surgery (SDC) | payer MEDICARE, SELFPAY ==
[2022-03-15 09:11] VITALS: BMI 46.0
[2022-03-16 06:06] VITALS: BP 163/115; PULSE 86; RESP 18; TEMP 36.9; O2SAT 96
[2022-03-16] MEDS: sodium chloride 0.9% 1,000 ML 30 ML IV (06:20)
[2022-03-16 06:22] LABS: OR HCG Qualitative Urine Negative (Negative)
--- NOTE | 2022-03-16 06:23 | P.HP_ITS ---
Same Day Surgery H&P Indication for Procedure/HPI DATE OF PROCEDURE: March 16, 2022 CHIEF COMPLAINT/INDICATIONFOR SURGICAL PROCEDURE: I had diverticulitis PREOP DIAGNOSIS: History of diverticulitis PLANNED PROCEDURE: Operation Date: 03/16/22 07:00 Proposed Procedures p Colonoscopy 68674,Z87.19(Not Applicable) - Xavi Núñez MD This is a pleasant 46 years old female with history of diverticulitis that was treated as an outpatient. Patient had a CT of the abdomen pelvis on September 2021 and showed 1.? Mildly complex LEFT ovarian cyst/hemorrhagic cyst measures 3.6 x 3.1 cm. 2.? No free fluid in the pelvis. 3.? Moderate chronic appearing changes of diverticulosis throughout the sigmoid colon. Numerous diverticula within the distal colon. Early changes of acute diverticulitis may not be apparent. At this time there is no evidence for acute diverticulitis or inflammation. 4.? No evidence for appendicitis. ? Patient was seen by my partner Dr. Coronel on 11/07/2021 for further evaluation for potential colonoscopy. And patient comes today for the proposed procedure. ROS All systems have been reviewed negative except as for the above or per problem list. Medications/Allergies* Home Medications Medication Instructions Recorded Confirmed Type loratadine 10 mg tablet (Claritin) 10 mg PO DAILY 12/27/20 03/16/22 History bupropion HCl 200 mg tablet,12 hr 200 mg PO DAILY 09/21/21 03/16/22 History sustained-release cholecalciferol (vitamin D3) 25 25 mcg PO DAILY 09/21/21 03/16/22 History mcg (1,000 unit) capsule (Vitamin D3) belimumab 120 mg intravenous 120 mg IV .QMONTH 01/16/22 03/16/22 History solution (Benlysta) pantoprazole 40 mg tablet,delayed 40 mg PO DAILY 03/15/22 03/16/22 History release trazodone 100 mg tablet 200 mg PO BEDTIME 03/15/22 03/16/22 History Allergies/Adverse Reactions Allergy/AdvReac Type Severity Reaction Status Date / Time No Known Allergies Allergy Verified 03/16/22 06:26 Current Medications: Generic Name Dose Route Start Last Admin Trade Name Freq PRN Reason Stop Dose Admin Sodium Chloride 1,000 mls @ 30 mls/hr 03/16/22 06:15 03/16/22 06:20 Sodium Chloride 0.9% IV 03/17/22 06:14 30 mls/hr .Q24H MOR Administration Pertinent History/Comorbid Conditions* Medical History (Updated 02/11/22 @ 14:47 by Kendy Smith DO) Acid reflux Binge eating disorder Bursitis DVT (deep venous thrombosis) Essential hypertension Generalized anxiety disorder High risk medication use History of diverticulitis Immunization counseling Insomnia disorder Lupus SLE Major depressive disorder, recurrent severe without psychotic features Prediabetes Primary antiphospholipid syndrome SLE (systemic lupus erythematosus related syndrome) Sleep apnea TIA (transient ischemic attack) left Surgical History (Updated 11/07/21 @ 13:15 by Wisam Coronel DO) History of endometrial ablation History of esophagogastroduodenoscopy (EGD) History of repair of ACL Hx of arthroscopy of knee left knee Hx of carpal tunnel repair bilateral Family History (Updated 12/10/19 @ 09:26 by Lucie Davila RN) Palpitations Diabetes Tachycardia Social History Smoking and tobacco status: never smoked Alcohol intake: current Alcohol intake frequency: holidays/special occasions only History of recent travel: No Pertinent Exam Findings alert, oriented x 3, clear to auscultation bilaterally, regular rate & rhythm and procedure specific exam findings (Abdominal exam nontender nondistended soft, obese) Recommendations Surgery/Procedure today (Colonoscopy with possible biopsy) Other Plans: Plan of care; After thorough history and physical examination and reviewing the chart, plan to perform colonoscopy. I discussed with the patient in details the risks,benefits,alternatives and indications.The risk of aspiration, bleeding, soft tissue injury, perforation of the colon ,missed lesions and other potential concomitant complications were explained to the patient in details,also the potential need for Laproscoy/Laparotomy to repair any related complications including but not limited to colectomy and or Closotomy.The patient understood this well and did agree to proceed. Rationale was carefully and clearly discussed with the patient.Appropriate informed consent have been reviewed and signed All questions have been answered and all concerns have been addressed to patient's satisfaction. Verbal and written Instructions were given to the patient for colonoscopy prep Coding Level of Care Code Acute Scrap Crusher for Dariela Poon
--- NOTE | 2022-03-16 06:59 | ANES.PREANE2 ---
Pre-Anesthetic Assessment Height/Weight: Height 1.6 m Weight 117.934 kg Temp Pulse Resp BP Pulse Ox O2 Del Method 98.4 F 86 18 163/115 96 03/16/22 06:06 03/16/22 06:06 03/16/22 06:06 03/16/22 06:06 03/16/22 06:06 03/16/22 06:06 Preop Diagnosis: History of diverticulitis Operation Date: 03/16/22 07:00 Proposed Procedures p Colonoscopy 48981,Z87.19(Not Applicable) - Xavi Núñez MD Familial anesthetic complications: slow to wake Was Beta Darlin taken within 24 hours: N/A Was Clonidine taken within 24 hours: N/A Last intake: Intake Last Liquid Date 03/15/22 Last Liquid Time 22:00 Last Solid Date 03/14/22 Last Solid Time 18:00 Social No alcohol and No tobacco Exam alert and oriented x 3 Airway Submandibular: within normal limits Cervical ROM: within normal limits Mallampati: Class II Dentition: full History/ROS No significant history except as noted Pulmonary Sleep Apnea CV/HEM Arrythmia and Hypertension antiphospholipid antibody blood clotting disorder- on warfarin None reported Hepatic None reported GI Gastroesophageal Reflux Disease Metabolic Hyperlipidemia and Morbid Obesity [facility] [place] None reported lupus Neuropsych None reported Anesthetic Plan ASA status: 3 Anesthesia: Anesthesia Evaluation and MAC Risk of > 500 ml blood loss (7ml/kg in children): No Medications/Allergies Home Medications Medication Instructions Recorded Confirmed Last Taken Type loratadine 10 mg tablet (Claritin) 10 mg PO DAILY 12/27/20 03/16/22 03/14/22 History folic acid 1 mg tablet 1 mg PO DAILY #90 tabs 07/10/21 03/16/22 09/20/21 Rx dicyclomine 10 mg capsule 10 mg PO BID #180 caps 08/25/21 03/16/22 03/15/22 Rx bupropion HCl 200 mg tablet,12 hr 200 mg PO DAILY 09/21/21 03/16/22 03/14/22 History sustained-release cholecalciferol (vitamin D3) 25 25 mcg PO DAILY 09/21/21 03/16/22 03/14/22 History mcg (1,000 unit) capsule (Vitamin D3) sertraline 100 mg tablet 200 mg PO DAILY #60 tabs 08/03/16/22 03/14/22 Rx C- PAP AND SUPPLIES #1 ea 01/09/22 02/26/22 Unknown Rx belimumab 120 mg intravenous 120 mg IV .QMONTH 01/16/22 03/16/22 Unknown History solution (Benlysta) hydroxychloroquine 200 mg tablet 200 mg PO BID #60 tabs 01/16/22 03/16/22 03/15/22 Rx methotrexate sodium 2.5 mg tablet See Rx Instructions PO .week 01/16/22 03/16/22 03/09/22 Rx Rheumatoid Arthritis #150 tabs prednisone 5 mg tablet 5 mg PO DAILY PRN Arthritis Flare 01/16/22 03/16/22 03/14/22 Rx Up #90 tabs warfarin 6 mg tablet 6 mg PO DAILY #30 tabs 01/31/22 03/16/22 03/12/22 Rx lisinopril 20 mg tablet 20 mg PO DAILY #100 tabs 02/07/22 03/16/22 03/14/22 Rx triamcinolone acetonide 0.1 % 1 applic topical BID #80 grams 02/08/22 03/16/22 Unknown Rx topical cream pantoprazole 40 mg tablet,delayed 40 mg PO DAILY 03/15/22 03/16/22 03/15/22 History release trazodone 100 mg tablet 200 mg PO BEDTIME 03/15/22 03/16/22 03/15/22 History Allergies Allergy/AdvReac Type Severity Reaction Status Date / Time No Known Allergies Allergy Verified 03/16/22 06:26 Current Medications Generic Name Dose Route Start Last Admin Trade Name Freq PRN Reason Stop Dose Admin Sodium Chloride 1,000 mls @ 30 mls/hr 03/16/22 06:15 03/16/22 06:20 Sodium Chloride 0.9% IV 03/17/22 06:14 30 mls/hr .Q24H MOR Administration PFSH Anesthesia Medical History Acid reflux Binge eating disorder Bursitis DVT (deep venous thrombosis) Essential hypertension Generalized anxiety disorder High risk medication use History of diverticulitis Immunization counseling Insomnia disorder Lupus SLE Major depressive disorder, recurrent severe without psychotic features Prediabetes Primary antiphospholipid syndrome SLE (systemic lupus erythematosus related syndrome) Sleep apnea TIA (transient ischemic attack) left Surgical History History of endometrial ablation History of esophagogastroduodenoscopy (EGD) History of repair of ACL Hx of arthroscopy of knee left knee Hx of carpal tunnel repair bilateral Family History Other Diabetes Palpitations Tachycardia Social History Smoking and tobacco status: never smoked Alcohol intake: current Alcohol intake frequency: holidays/special occasions only History of recent travel: No Data Anesthesia Cardiac Studies: Holter Monitor 12/08/19
[2022-03-16 07:16] VITALS: BP 119/83; PULSE 80; RESP 20; TEMP 36.6; O2SAT 93
[2022-03-16 07:21] VITALS: BP 135/82; PULSE 82; RESP 20; O2SAT 97
--- NOTE | 2022-03-16 07:23 | ANE.PACU2 ---
Inpatient post-anesthesia follow up: Airway intact: Yes Vital signs: Temperature 97.9 F Pulse Rate 82 Respiratory Rate 20 Blood Pressure 135/82 Pulse Oximetry 97 Oxygen Delivery Me thod Nasal Cannula Oxygen Flow Rate 4 Fraction of Inspir ed Oxygen Hydration adequate: Yes Nausea and vomiting: No Pain level: 1 Mental status: Baseline
== END 2022-03-16 07:54 | disposition home or self-care (01) ==
PROVIDERS: Anesthesiology; PCP Family Medicine; Visit Provider Surgery
PROC: 0DJD8ZZ Inspection of Lower Intestinal Tract, Via Natural or Artificial Opening Endoscopic (ICD-10-PCS; CPT 45378; principal; 2022-03-16 07:00)
DX: Z87.19 Personal history of other diseases of the digestive system (principal); D12.3 Benign neoplasm of transverse colon; K57.30 Diverticulosis of large intestine without perforation or abscess without bleeding; Q27.30 Arteriovenous malformation, site unspecified; K21.9 Gastro-esophageal reflux disease without esophagitis; Z86.718 Personal history of other venous thrombosis and embolism; I10 Essential (primary) hypertension; Z79.899 Other long term (current) drug therapy; G47.30 Sleep apnea, unspecified; Z86.73 Personal history of transient ischemic attack (TIA), and cerebral infarction without residual deficits
CPT/HCPCS: 45380; 81025; 84703; 88305; J2704; J7030

== ENCOUNTER → 2022-03-29 11:27 | Outpatient (BNVA) | payer MEDICARE, SELFPAY | PROVIDERS: PCP Family Medicine; Visit Provider Surgery | DX: K55.20 Angiodysplasia of colon without hemorrhage (principal); Z09 Encounter for follow-up examination after completed treatment for conditions other than malignant neoplasm; K57.31 Diverticulosis of large intestine without perforation or abscess with bleeding | CPT/HCPCS: 99212 ==

== ENCOUNTER 2022-04-03 11:46 | Outpatient (CLI) | payer MEDICARE, SELFPAY ==
[2022-04-03 12:40] VITALS: BP 166/80; PULSE 77; RESP 18; TEMP 36.6; O2SAT 98
[2022-04-03] MEDS: sodium chloride 0.9% 250 ML 50 ML IV (13:09)
[2022-04-03] MEDS: acetaminophen 325 mg Tablet 650 MG PO (13:12)
[2022-04-03] MEDS: diphenhydrAMINE 50 mg/mL SDV 1mL 25 MG IVP (13:14)
[2022-04-03 14:53] VITALS: BP 171/79; PULSE 86; RESP 18; TEMP 36.2; O2SAT 95
== END 2022-04-03 11:47 | disposition home or self-care (01) ==
PROVIDERS: PCP Family Medicine; Visit Provider Internal Medicine Rheumatology
DX: M32.9 Systemic lupus erythematosus, unspecified (principal)
CPT/HCPCS: 96365; 96375; J0490; J1200; J2930; J7050

== ENCOUNTER → 2022-04-30 10:08 | Outpatient (BNVA) | payer MEDICARE, SELFPAY | PROVIDERS: PCP Family Medicine; Visit Provider Internal Medicine Rheumatology | DX: M32.9 Systemic lupus erythematosus, unspecified (principal); D68.61 Antiphospholipid syndrome; Z79.899 Other long term (current) drug therapy; Z71.89 Other specified counseling | CPT/HCPCS: 20600; 99214; J1030 ==

== ENCOUNTER 2022-05-01 09:25 | Outpatient (CLI) | payer MEDICARE, SELFPAY ==
[2022-05-01 09:57] VITALS: BP 139/86; PULSE 79; RESP 18; TEMP 36.6; O2SAT 100
[2022-05-01 10:00] LABS: Add Urine Microscopic? NO; Charge for UA Resulting for Rev
[2022-05-01 10:11] LABS: Basophils # 0.1 10^3/uL (0.0-0.1); Basophils % 1.1 %; Eosinophils # 0.2 10^3/uL (0.0-0.8); Eosinophils % 4.3 %; Hematocrit 42.7 % (37.0-47.0); Hemoglobin 14.5 g/dL (11.5-15.3); Lymphocytes # 1.3 10^3/uL (0.8-4.8); Lymphocytes % 22.8 %; Mean Corpuscular Hemoglobin 32.8 pg (28.0-34.0); Mean Corpuscular Volume 96.6 fl (81-99); Mean Platelet Volume 10.2 fL (7.4-10.4); Monocytes # 0.4 10^3/uL (0.2-0.9); Monocytes % 6.8 %; Neutrophils # 3.63 10^3/uL (1.8-7.7); Neutrophils % 64.6 %; Nucleated Red Blood Cells % 0 %; Platelet Count 224 10^3/cmm (130-400); Red Blood Count 4.42 10^6/uL (4.1-5.3); Red Cell Distribution Width 13.3 % (12.1-15.1); White Blood Count 5.6 10^3/uL (4.0-10.0)
[2022-05-01] MEDS: sodium chloride 0.9% 250 ML 50 ML IV (10:12)
[2022-05-01] MEDS: acetaminophen 325 mg Tablet 650 MG PO (10:13)
[2022-05-01] MEDS: diphenhydrAMINE 50 mg/mL SDV 1mL 25 MG IVP (10:15)
[2022-05-01 10:39] LABS: Urine Creatinine 131 mg/dL (28-217); Urine Protein Random 7 mg/dL
[2022-05-01 10:42] LABS: Bilirubin Urine Neg (Negative); Blood Urine Neg (Negative); Glucose Urine UA Norm (Normal); Ketones Urine Negative (Negative); Leukocyte Esterase Urine Negative (Negative); Nitrate Urine Negative (Negative); Protein Urine Neg (Negative); Specific Gravity, Urine 1.025 (1.005-1.030); Urine Appearance Clear (CLEAR); Urine Color Yellow (Yellow); Urobilinogen Urine Norm (Negative); pH Urine 5 (5-7)
[2022-05-01 11:22] LABS: Alanine Aminotransferase 231 U/L (0-33); Albumin Level 3.8 g/dL (3.5-5.2); Alkaline Phosphatase 57 U/L (35-105); Aspartate Amino Transferase 146 U/L (0-32); Globulin 2.3 g/dL (1.3-4.6); Glomerular Filtration Rate 89.7 mL/min (90-130); Total Bilirubin 0.4 mg/dL (0.15-1.2); Total Protein 6.1 g/dL (6.6-8.7)
[2022-05-01 12:02] VITALS: BP 134/84; PULSE 73; RESP 18; TEMP 36.4; O2SAT 98
== END 2022-05-01 09:26 | disposition home or self-care (01) ==
LOC: ONCMED 09:25
PROVIDERS: PCP Family Medicine; Visit Provider Internal Medicine Rheumatology
DX: M32.9 Systemic lupus erythematosus, unspecified (principal); Z79.899 Other long term (current) drug therapy
CPT/HCPCS: 80076; 81003; 82565; 82570; 84156; 85025; 96365; 96375; J0490; J1200; J2920; J7050

== ENCOUNTER 2022-05-09 13:44 | Outpatient (CLI) | payer MEDICARE, SELFPAY ==
[2022-05-09 14:38] LABS: Alanine Aminotransferase 61 U/L (0-33); Alkaline Phosphatase 60 U/L (35-105); Aspartate Amino Transferase 28 U/L (0-32); Globulin 3.1 g/dL (1.3-4.6); Total Bilirubin 0.3 mg/dL (0.15-1.2); Total Protein 7.1 g/dL (6.6-8.7)
== END 2022-05-09 13:45 | disposition home or self-care (01) ==
PROVIDERS: PCP Family Medicine; Visit Provider Internal Medicine Rheumatology
DX: R79.89 Other specified abnormal findings of blood chemistry (principal)
CPT/HCPCS: 36415; 80076

== ENCOUNTER 2022-05-29 09:37 | Outpatient (CLI) | payer MEDICARE, SELFPAY ==
[2022-05-29 09:45] VITALS: BP 134/84; PULSE 78; RESP 18; TEMP 36.6; O2SAT 97
[2022-05-29 10:17] VITALS: BMI 46.5
[2022-05-29] MEDS: sodium chloride 0.9% 250 ML 50 ML IV (10:37)
[2022-05-29] MEDS: acetaminophen 325 mg Tablet 650 MG PO (10:40)
[2022-05-29] MEDS: diphenhydrAMINE 50 mg/mL SDV 1mL 25 MG IVP (10:42)
[2022-05-29 12:09] VITALS: BP 131/79; PULSE 82; RESP 18; TEMP 36.6; O2SAT 96
== END 2022-05-29 09:38 | disposition home or self-care (01) ==
LOC: ONCMED 09:37
PROVIDERS: PCP Family Medicine; Visit Provider Internal Medicine Rheumatology
DX: M32.9 Systemic lupus erythematosus, unspecified (principal)
CPT/HCPCS: 96365; 96375; J0490; J1200; J2920; J7050

== ENCOUNTER 2022-06-19 14:13 | Outpatient (CLI) | payer MEDICARE, SELFPAY ==
[2022-06-19 15:14] LABS: Alanine Aminotransferase 34 U/L (0-33); Albumin Level 4.3 g/dL (3.5-5.2); Alkaline Phosphatase 69 U/L (35-105); Aspartate Amino Transferase 22 U/L (0-32); Globulin 2.8 g/dL (1.3-4.6); Total Bilirubin 0.3 mg/dL (0.15-1.2); Total Protein 7.1 g/dL (6.6-8.7)
== END 2022-06-19 14:14 | disposition home or self-care (01) ==
LOC: LAB 14:17
PROVIDERS: PCP Family Medicine; Visit Provider Internal Medicine Rheumatology
DX: Z79.899 Other long term (current) drug therapy (principal)
CPT/HCPCS: 36415; 80076

== ENCOUNTER 2022-06-19 14:13 | Outpatient (CLI) | payer MEDICARE, SELFPAY ==
--- NOTE | 2022-06-19 14:41 | XRR_ITS ---
PROCEDURE INFORMATION: Exam: XR Bilateral Sacroiliac Joints Exam date and time: 06/19/2022 2:53 PM Age: 46 years old Clinical indication: Patient HX: Chronic low back pain and RT hip pain at iliac crest TECHNIQUE: Imaging protocol: XR bilateral XR of the sacroiliac joints. Views: 3 or more views. COMPARISON: CT abdomen pelvis w con* [id number] 09/21/2021 2:09 PM FINDINGS: Bones/joints: Normal. No acute fracture. Soft tissues: Normal. Other findings: Tubal ligation devices suspected over the pelvic inlet. XR/XR sacroiliac jts m 3V [id number] IMPRESSION: Negative for acute bony abnormality.
--- NOTE | 2022-06-19 14:41 | XRR_ITS ---
PROCEDURE INFORMATION: Exam: XR Lumbosacral Spine Exam date and time: 06/19/2022 2:53 PM Age: 46 years old Clinical indication: Patient HX: Chronic low back pain and RT hip pain at iliac crest TECHNIQUE: Imaging protocol: Radiologic exam of the lumbosacral spine. Views: 2 or 3 views. COMPARISON: CT abdomen pelvis w con* [id number] 09/21/2021 2:09 PM FINDINGS: Tubes, catheters and devices: Tubal ligation devices. Bones/joints: Multilevel moderate productive degenerative endplate changes throughout the spine. Multilevel [id number] lower thoracic and upper to mid lumbar spine largely posterior disc space narrowing. Soft tissues: Unremarkable. XR/XR lumbar spine 2-3V* [id number] IMPRESSION: 1. Negative for acute bony abnormality. 2. Tubal ligation devices. 3. Multilevel moderate productive degenerative endplate changes throughout the spine. 4. Multilevel [id number] lower thoracic and upper to mid lumbar spine largely posterior disc space narrowing.
== END 2022-06-19 14:14 | disposition home or self-care (01) ==
LOC: RAD 14:19
PROVIDERS: PCP Family Medicine; Visit Provider Family Medicine
DX: G89.29 Other chronic pain (principal); M25.551 Pain in right hip; M48.04 Spinal stenosis, thoracic region; M48.061 Spinal stenosis, lumbar region without neurogenic claudication
CPT/HCPCS: 72100; 72202

== ENCOUNTER 2022-06-25 13:42 | Oncology outpatient (recurring) (ONCR) | payer MEDICARE, SELFPAY ==
[2022-06-25 14:18] LABS: Basophils % 0.6 %; Eosinophils # 0.2 10^3/uL (0.0-0.8); Eosinophils % 2.8 %; Hematocrit 42.5 % (37.0-47.0); Hemoglobin 14.5 g/dL (11.5-15.3); Lymphocytes # 0.7 10^3/uL (0.8-4.8); Lymphocytes % 9.7 %; Mean Corpuscular HGB Conc 34.1 g/dL (30.0-36.0); Mean Corpuscular Hemoglobin 32.6 pg (28.0-34.0); Mean Corpuscular Volume 95.5 fl (81-99); Mean Platelet Volume 9.5 fL (7.4-10.4); Monocytes # 0.6 10^3/uL (0.2-0.9); Neutrophils # 5.57 10^3/uL (1.8-7.7); Neutrophils % 78.5 %; Nucleated Red Blood Cells % 0 %; Platelet Count 203 10^3/cmm (130-400); Red Blood Count 4.45 10^6/uL (4.1-5.3); White Blood Count 7.1 10^3/uL (4.0-10.0)
[2022-06-25] MEDS: sodium chloride 0.9% 250 ML 75 ML IV (14:35)
[2022-06-25] MEDS: diphenhydrAMINE 50 mg/mL SDV 1mL 25 MG IVP (14:36)
[2022-06-25] MEDS: acetaminophen 325 mg Tablet 650 MG PO (14:36)
[2022-06-25] MEDS: BELIMUMAB IV (14:50)
[2022-06-25] MEDS: SODIUM CHLORIDE 0.9% IV (14:50)
[2022-06-25 15:58] VITALS: BP 127/79; PULSE 78; RESP 16; TEMP 37.1; O2SAT 96
[2022-06-25 16:43] LABS: Alanine Aminotransferase 46 U/L (0-33); Albumin Level 3.7 g/dL (3.5-5.2); Alkaline Phosphatase 45 U/L (35-105); Anion Gap 10.5 (5-19); Aspartate Amino Transferase 30 U/L (0-32); Blood Urea Nitrogen 9 mg/dL (6-20); Carbon Dioxide 28 mmol/L (22-29); Chloride 105 mmol/L (98-107); Globulin 2.6 g/dL (1.3-4.6); Glomerular Filtration Rate 89.7 mL/min (90-130); Glucose 104 mg/dL (65-115); Osmolality Calculated 287 mOsm/kg (285-295); Potassium 4.5 mmol/L (3.5-5.1); Sodium 139 mmol/L (136-145); Total Bilirubin 0.4 mg/dL (0.15-1.2); Total Protein 6.3 g/dL (6.6-8.7)
== END 2022-07-06 23:59 | disposition home or self-care (01) ==
PROVIDERS: PCP Family Medicine; Visit Provider Internal Medicine Rheumatology
DX: Z51.12 Encounter for antineoplastic immunotherapy (principal); K57.31 Diverticulosis of large intestine without perforation or abscess with bleeding
CPT/HCPCS: 80053; 85025; 86140; 96365; 96375; J0490; J1200; J2920; J7050

== ENCOUNTER 2022-07-23 10:41 | Oncology outpatient (recurring) (ONCR) | payer MEDICARE, SELFPAY ==
[2022-07-23 11:51] VITALS: BP 132/85; PULSE 72; RESP 16; TEMP 36.7; O2SAT 98
[2022-07-23] MEDS: sodium chloride 0.9% 250 ML 75 ML IV (12:18)
[2022-07-23] MEDS: acetaminophen 325 mg Tablet 650 MG PO (12:20)
[2022-07-23] MEDS: diphenhydrAMINE 50 mg/mL SDV 1mL 25 MG IVP (12:21)
[2022-07-23] MEDS: BELIMUMAB IV (12:41)
[2022-07-23] MEDS: SODIUM CHLORIDE 0.9% IV (12:41)
[2022-07-23 13:50] VITALS: BP 124/85; PULSE 72; RESP 16; TEMP 36.4; O2SAT 98
== END 2022-08-05 23:59 | disposition home or self-care (01) ==
PROVIDERS: PCP Family Medicine; Visit Provider Internal Medicine Rheumatology
DX: M32.9 Systemic lupus erythematosus, unspecified; D68.61 Antiphospholipid syndrome; Z79.899 Other long term (current) drug therapy
CPT/HCPCS: 96365; 96375; J0490; J1200; J2920; J7050

== ENCOUNTER → 2022-08-13 13:58 | Outpatient (BNVA) | payer MEDICARE, SELFPAY | PROVIDERS: PCP Family Medicine; Visit Provider Internal Medicine Rheumatology | DX: M32.9 Systemic lupus erythematosus, unspecified (principal); M25.569 Pain in unspecified knee; D68.61 Antiphospholipid syndrome; Z79.899 Other long term (current) drug therapy; Z71.89 Other specified counseling | CPT/HCPCS: 73562; 99214 ==

== ENCOUNTER → 2022-08-15 08:26 | Outpatient (BNVA) | payer MEDICARE, SELFPAY | PROVIDERS: PCP Family Medicine; Referring Provider Registered Nurse Neonatal Intensive Care; Visit Provider Nurse Practitioner Family | DX: S89.91XA Unspecified injury of right lower leg, initial encounter (principal); W19.XXXA Unspecified fall, initial encounter | CPT/HCPCS: 99214 ==

== ENCOUNTER 2022-08-15 10:34 | Outpatient (CLI) | payer MEDICARE, SELFPAY | END 2022-08-15 10:35 | disposition home or self-care (01) | LOC: SPT 10:34 | PROVIDERS: PCP Family Medicine; Visit Provider Nurse Practitioner Family | DX: Z46.89 Encounter for fitting and adjustment of other specified devices (principal); M25.561 Pain in right knee | CPT/HCPCS: 97760; L1812 ==

== ENCOUNTER 2022-08-17 09:14 | Outpatient (RCR) | payer MEDICARE, SELFPAY | END 2022-09-05 23:59 | disposition home or self-care (01) | LOC: SPT 09:14 | PROVIDERS: PCP Family Medicine; Visit Provider Family Medicine | DX: M54.50 Low back pain, unspecified (principal); G89.29 Other chronic pain | CPT/HCPCS: 97110; 97161; G0283 ==

== ENCOUNTER 2022-08-20 13:10 | Oncology outpatient (recurring) (ONCR) | payer MEDICARE, MEDICAID, SELFPAY ==
[2022-08-20 13:33] VITALS: BP 123/80; PULSE 76; RESP 16; TEMP 37; O2SAT 95
[2022-08-20] MEDS: sodium chloride 0.9% (100 ml) 100 ML 75 ML (13:54)
[2022-08-20] MEDS: acetaminophen 325 mg Tablet 650 MG PO (13:54)
[2022-08-20] MEDS: dexamethasone 10 mg/mL INJ 6 MG IVP (13:56)
[2022-08-20] MEDS: diphenhydrAMINE 50 mg/mL SDV 1mL 25 MG IVP (14:04)
[2022-08-20] MEDS: BELIMUMAB IV (14:17)
[2022-08-20] MEDS: SODIUM CHLORIDE 0.9% IV (14:17)
[2022-08-20 15:19] VITALS: BP 116/72; PULSE 77; TEMP 36.1; O2SAT 96
== END 2022-09-05 23:59 | disposition home or self-care (01) ==
PROVIDERS: PCP Family Medicine; Visit Provider Internal Medicine Rheumatology
DX: K57.30 Diverticulosis of large intestine without perforation or abscess without bleeding (principal); M32.9 Systemic lupus erythematosus, unspecified
CPT/HCPCS: 96365; 96375; 96413; J0490; J1100; J1200; J7050

== ENCOUNTER 2022-09-06 06:00 | Outpatient (RCR) | payer MEDICARE, SELFPAY | END 2022-10-05 23:59 | disposition home or self-care (01) | LOC: SPT 06:00 | PROVIDERS: PCP Family Medicine; Visit Provider Family Medicine | DX: M54.50 Low back pain, unspecified (principal); G89.29 Other chronic pain | CPT/HCPCS: 97110; G0283 ==

== ENCOUNTER 2022-09-07 06:45 | Outpatient (CLI) | payer MEDICARE, SELFPAY ==
--- NOTE | 2022-09-07 07:15 | MR_ITS ---
WS: [id number] MRI RIGHT KNEE NONCONTRAST TECHNIQUE: Axial PD, coronal PD fat sat, coronal PD, sagittal PD, and sagittal PD fat-sat images obta ined. CLINICAL INFORMATION: trauma fall COMPARISON: None. FINDINGS: Distal quadriceps and patella tendons are intact. Normal ACL and PCL. Prepatellar and infrapatellar s oft tissue edema. Small suprapatellar effusion. Mild chronic thinning of the medial and lateral menis cus. Chronic intrasubstance signal abnormality involving the posterior horn medial meniscus. Slight peripheral extrusion of the medial meniscus. Mild narrowing of the medial joint compartment. Grade II chondromalacia. No subchondral edema. Medial and lateral collateral ligaments are intact. Ti ny lobulated popliteal cyst. Mild chondromalacia patella. Medial and lateral patellar retinacula appe ar intact. MR/MR knee RT wo con* [id number] IMPRESSION: 1. Normal ACL and PCL. 2. Chronic intrasubstance signal abnormality in the posterior horn medial meni scus. No acute appearing meniscal tears. 3. Mild chondromalacia medial and lateral joint compartments. No subchondral e juanjo. 4. Mild chondromalacia patella. 5. Small suprapatellar effusion with prepatellar and infrapatellar anterior so ft tissue edema. Outbridge grading: grade II: blister-like swelling/fraying of articular cartila ge extending to surface
== END 2022-09-07 06:46 | disposition home or self-care (01) ==
LOC: RAD 06:45
PROVIDERS: PCP Family Medicine; Visit Provider Nurse Practitioner Family
DX: S89.91XA Unspecified injury of right lower leg, initial encounter (principal); W19.XXXA Unspecified fall, initial encounter; M22.41 Chondromalacia patellae, right knee; M25.461 Effusion, right knee
CPT/HCPCS: 73721

== ENCOUNTER 2022-09-17 12:58 | Oncology outpatient (recurring) (ONCR) | payer MEDICARE, SELFPAY ==
[2022-09-17 13:16] VITALS: BP 124/76; PULSE 68; RESP 18; TEMP 36.3; O2SAT 97
[2022-09-17] MEDS: acetaminophen 325 mg Tablet 650 MG PO (13:45)
[2022-09-17] MEDS: diphenhydrAMINE 50 mg/mL SDV 1mL 25 MG IVP (13:46)
[2022-09-17 13:54] LABS: Basophils # 0.1 10^3/uL (0.0-0.1); Basophils % 0.8 %; Eosinophils # 0.2 10^3/uL (0.0-0.8); Eosinophils % 3.2 %; Hematocrit 44.1 % (37.0-47.0); Lymphocytes # 1.3 10^3/uL (0.8-4.8); Lymphocytes % 20.3 %; Mean Corpuscular Hemoglobin 31.8 pg (28.0-34.0); Mean Corpuscular Volume 93.6 fl (81-99); Mean Platelet Volume 9.7 fL (7.4-10.4); Monocytes # 0.6 10^3/uL (0.2-0.9); Monocytes % 8.7 %; Neutrophils # 4.36 10^3/uL (1.8-7.7); Neutrophils % 66.7 %; Nucleated Red Blood Cells % 0 %; Platelet Count 223 10^3/cmm (130-400); Red Blood Count 4.71 10^6/uL (4.1-5.3); Red Cell Distribution Width 13.2 % (12.1-15.1); White Blood Count 6.5 10^3/uL (4.0-10.0)
[2022-09-17 14:11] LABS: Specific Gravity, Urine 1.025 (1.005-1.030); Urine Appearance SL Hazy (CLEAR); Urine Color Yellow (Yellow); pH Urine 5 (5-7)
[2022-09-17 14:12] LABS: Add Urine Culture? No; Add Urine Microscopic? YES; Bacteria Urine TRACE /hpf; Bilirubin Urine Neg (Negative); Blood Urine Neg (Negative); Glucose Urine UA Norm (Normal); Ketones Urine Negative (Negative); Leukocyte Esterase Urine Trace (Negative); Mucus Urine 2+ /hpf; Nitrate Urine Negative (Negative); Protein Urine Neg (Negative); RBC Urine 0-4 /hpf (0-2); Urobilinogen Urine Norm (Negative); WBC Urine 0-4 /hpf (0-5)
[2022-09-17] MEDS: BELIMUMAB IV (14:22)
[2022-09-17] MEDS: SODIUM CHLORIDE 0.9% IV (14:22)
[2022-09-17 15:12] LABS: Alanine Aminotransferase 42 U/L (0-33); Albumin Level 3.8 g/dL (3.5-5.2); Alkaline Phosphatase 76 U/L (35-105); Aspartate Amino Transferase 38 U/L (0-32); Globulin 2.3 g/dL (1.3-4.6); Glomerular Filtration Rate 89.7 mL/min (90-130); Total Bilirubin 0.3 mg/dL (0.15-1.2); Total Protein 6.1 g/dL (6.6-8.7)
[2022-09-17 15:38] VITALS: BP 131/80; PULSE 76; RESP 16; TEMP 36.4; O2SAT 97
== END 2022-10-05 23:59 | disposition home or self-care (01) ==
PROVIDERS: PCP Family Medicine; Visit Provider Internal Medicine Rheumatology
DX: M32.9 Systemic lupus erythematosus, unspecified (principal); K57.31 Diverticulosis of large intestine without perforation or abscess with bleeding
CPT/HCPCS: 80076; 81001; 82565; 85025; 96365; 96375; J0490; J1200; J7050

== ENCOUNTER → 2022-10-02 08:35 | Outpatient (BNVA) | payer MEDICARE, MEDICAID, SELFPAY | PROVIDERS: PCP Family Medicine; Visit Provider Nurse Practitioner Family | DX: M25.561 Pain in right knee (principal) | CPT/HCPCS: 99213 ==

== ENCOUNTER 2022-10-17 11:33 | Oncology outpatient (recurring) (ONCR) | payer MEDICARE, MEDICAID, SELFPAY ==
[2022-10-17 11:45] VITALS: BP 126/77; PULSE 75; RESP 16; TEMP 36.6; O2SAT 96
[2022-10-17] MEDS: acetaminophen 325 mg Tablet 650 MG PO (12:04)
[2022-10-17] MEDS: sodium chloride 0.9% 250 ML 75 ML IV (12:05)
[2022-10-17] MEDS: dexamethasone 10 mg/mL INJ 6 MG IVP (12:13)
[2022-10-17] MEDS: diphenhydrAMINE 50 mg/mL SDV 1mL 25 MG IVP (12:17)
[2022-10-17] MEDS: SODIUM CHLORIDE 0.9% IV (12:21)
[2022-10-17] MEDS: BELIMUMAB IV (12:21)
[2022-10-17 13:40] VITALS: BP 130/80; PULSE 69; RESP 16; TEMP 36.2; O2SAT 96
== END 2022-11-05 23:59 | disposition home or self-care (01) ==
PROVIDERS: PCP Family Medicine; Visit Provider Internal Medicine Rheumatology
DX: K58.9 Irritable bowel syndrome, unspecified (principal)
CPT/HCPCS: 96375; 96413; J0490; J1100; J1200; J7050

== ENCOUNTER 2022-11-14 11:29 | Oncology outpatient (recurring) (ONCR) | payer MEDICARE, MEDICAID, SELFPAY ==
[2022-11-14 12:00] VITALS: BP 132/77; PULSE 78; RESP 16; TEMP 36.5; O2SAT 96
[2022-11-14] MEDS: acetaminophen 325 mg Tablet 650 MG PO (12:52)
[2022-11-14] MEDS: sodium chloride 0.9% 250 ML 75 ML IV (12:55)
[2022-11-14] MEDS: methylPREDNISolone sod succ 40 mg SDV IVP (12:56)
[2022-11-14] MEDS: diphenhydrAMINE 50 mg/mL SDV 1mL 25 MG IVP (12:58)
[2022-11-14] MEDS: BELIMUMAB IV (13:03)
[2022-11-14] MEDS: SODIUM CHLORIDE 0.9% IV (13:03)
[2022-11-14 14:10] VITALS: BP 136/87; PULSE 72; RESP 16; TEMP 36.6; O2SAT 96
== END 2022-12-06 23:59 | disposition home or self-care (01) ==
PROVIDERS: PCP Family Medicine; Visit Provider Internal Medicine Rheumatology
DX: K57.30 Diverticulosis of large intestine without perforation or abscess without bleeding (principal)
CPT/HCPCS: 96413; J0490; J1200; J2920; J7050

== ENCOUNTER → 2022-11-19 14:13 | Outpatient (BNVA) | payer MEDICARE, MEDICAID, SELFPAY | PROVIDERS: PCP Family Medicine; Visit Provider Internal Medicine Rheumatology | DX: Z79.899 Other long term (current) drug therapy (principal); M32.9 Systemic lupus erythematosus, unspecified; D68.61 Antiphospholipid syndrome; Z71.89 Other specified counseling; M25.551 Pain in right hip; Z86.718 Personal history of other venous thrombosis and embolism; Z79.01 Long term (current) use of anticoagulants | CPT/HCPCS: 20600; 72170; 99214 ==

== ENCOUNTER 2022-12-03 11:27 | Outpatient (CLI) | payer MEDICARE, MEDICAID, SELFPAY ==
[2022-12-03 12:26] LABS: Basophils # 0.1 10^3/uL (0.0-0.1); Basophils % 0.8 %; Eosinophils # 0.1 10^3/uL (0.0-0.8); Eosinophils % 1.2 %; Hematocrit 43.9 % (36-47); Lymphocytes # 1.9 10^3/uL (0.8-4.8); Lymphocytes % 25.2 %; Mean Corpuscular HGB Conc 34.2 g/dL (30-55); Mean Corpuscular Hemoglobin 31.5 pg (27-33); Mean Corpuscular Volume 92.2 fl (85-98); Monocytes # 0.7 10^3/uL (0.2-0.9); Monocytes % 9.8 %; Neutrophils # 4.62 10^3/uL (1.8-7.7); Neutrophils % 62.7 %; Nucleated Red Blood Cells % 0 %; Platelet Count 217 10^3/cmm (157-399); Red Blood Count 4.76 10^6/uL (3.85-5.65); Red Cell Distribution Width 12.4 % (12.1-15.1); White Blood Count 7.37 10^3/uL (3.29-11.43)
[2022-12-03 12:43] LABS: Alanine Aminotransferase 25 U/L (0-33); Albumin Level 4.3 g/dL (3.5-5.2); Alkaline Phosphatase 66 U/L (35-105); Aspartate Amino Transferase 19 U/L (0-32); C Reactive Protein 10.1 mg/L (0.0-4.9); Globulin 2.8 g/dL (1.3-4.6); Glomerular Filtration Rate 76.6 mL/min (90-130); Total Bilirubin 0.4 mg/dL (0.15-1.2); Total Protein 7.1 g/dL (6.6-8.7)
== END 2022-12-03 11:28 | disposition home or self-care (01) ==
PROVIDERS: PCP Family Medicine; Visit Provider Internal Medicine Rheumatology
DX: M32.9 Systemic lupus erythematosus, unspecified (principal); Z79.899 Other long term (current) drug therapy
CPT/HCPCS: 36415; 80076; 82565; 85025; 86140

== ENCOUNTER 2022-12-21 09:00 | Oncology outpatient (recurring) (ONCR) | payer MEDICARE, MEDICAID, SELFPAY ==
[2022-12-12 13:30] VITALS: BP 129/67; PULSE 80; RESP 16; TEMP 36.3; O2SAT 95
[2022-12-21 08:50] VITALS: BP 123/81; PULSE 79; RESP 16; TEMP 36.3; O2SAT 96
[2022-12-21] MEDS: sodium chloride 0.9% 250 ML 75 ML IV (09:19)
[2022-12-21] MEDS: diphenhydrAMINE 50 mg/mL SDV 1mL 25 MG IVP (09:19)
[2022-12-21] MEDS: acetaminophen 325 mg Tablet 650 MG PO (09:20)
[2022-12-21] MEDS: methylPREDNISolone sod succ 40 mg SDV IVP (09:20)
[2022-12-21] MEDS: BELIMUMAB IV (09:32)
[2022-12-21] MEDS: SODIUM CHLORIDE 0.9% IV (09:32)
[2022-12-21 10:48] VITALS: BP 136/85; PULSE 67; RESP 16; TEMP 36.3; O2SAT 96
== END 2023-01-05 23:59 | disposition home or self-care (01) ==
PROVIDERS: PCP Family Medicine; Visit Provider Internal Medicine Rheumatology
DX: K57.30 Diverticulosis of large intestine without perforation or abscess without bleeding (principal)
CPT/HCPCS: 96374; 96375; 96413; J0490; J1200; J2920; J7050

== ENCOUNTER 2022-12-27 15:24 | Emergency (ER) | payer OTHER, SELFPAY ==
[2022-12-27 15:27] VITALS: BP 139/84; PULSE 114; RESP 16; O2SAT 94
--- NOTE | 2022-12-27 16:38 | ED_ITS ---
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 She states it was out in a field and very dirty. Last tetanus is unknown. Patient states she is having trouble walking secondary to the pain. Bleeding is controlled. She is on Coumadin. Last INR check was last week and 2.9. Onset (ago): hour(s) Extremity Location: Right: thigh Place: home Patient tetanus UTD: No Context: accidental Associated symptoms: Reports pain Review of Systems Musc: Reports: extremity pain (right thigh); Denies: neck pain, back pain, extremity swelling, joint pain or joint swelling Skin/Breast: Reports: other (puncture wound) Neuro: Denies: numbness in extremities, weakness in extremities or sensory changes PFSH ED PFSH: Medical History Acid reflux Binge eating disorder Bursitis DVT (deep venous thrombosis) Essential hypertension Generalized anxiety disorder High risk medication use History of diverticulitis Immunization counseling Insomnia disorder Lupus SLE Major depressive disorder, recurrent severe without psychotic features Prediabetes Primary antiphospholipid syndrome SLE (systemic lupus erythematosus related syndrome) Sleep apnea TIA (transient ischemic attack) left Surgical History History of endometrial ablation History of esophagogastroduodenoscopy (EGD) History of repair of ACL Hx of arthroscopy of knee left knee Hx of carpal tunnel repair bilateral Family History Other Diabetes Palpitations Tachycardia Social History Smoking and tobacco status: never smoked Alcohol intake: current Alcohol intake frequency: holidays/special occasions only Substance/Drug Use: never Physical Exam Const: COMMON NORMALS: no acute distress, patient oriented x3, no limitations and alert GENERAL APPEARANCE: cooperative and in distress (appears uncomfortable secondary to pain) Extremity: EXTREMITY IMAGE (FRONT): 1. puncture wound; tender; mild ecchymosis Neuro: COMMON NORMALS: patient oriented x3, moves all extremities, no focal motor deficits and no sensory deficits noted SENSORIUM/ORIENTATION: Yes alert Course Vital Signs: Vital signs: Vital Signs Pulse Rate 114 H 12/27/22 15:27 Respiratory Rate 16 12/27/22 15:27 Blood Pressure 139/84 12/27/22 15:27 Pulse Oximetry 94 12/27/22 15:27 Oxygen Delivery Me thod Room Air 12/27/22 15:27 MDM - Wound/Laceration Lab Data Radiology Impressions Hip/Pelvis X-Ray 12/27/22 16:45 IMPRESSION: No acute findings. Discharge Plan Discharge Patient Disposition: Home Clinical Impression: Puncture wound of right thigh Qualifiers: Encounter type: initial encounter Qualified Code(s): S71.131A - Puncture wound without foreign body, right thigh, initial encounter Condition: Stable Prescriptions: New amoxicillin-pot clavulanate 875-125 mg tablet 1 tab PO BID Qty: 20 0RF hydrocodone-acetaminophen 5-325 mg tablet 1 tab PO Q6H PRN (Reason: pain (scale score 7-10)) Qty: 10 0RF No Action folic acid 1 mg tablet 1 mg PO DAILY Qty: 90 3RF triamcinolone acetonide 0.1 % cream 1 applic topical BID Qty: 80 0RF hydrocodone-acetaminophen 5-325 mg tablet 1 tab PO Q8H PRN (Reason: pain) 7 Days Qty: 21 0RF hydrocodone-acetaminophen 5-325 mg tablet 1 tab PO Q8H PRN (Reason: pain) 21 Days Qty: 30 0RF prednisone 5 mg tablet 5 mg PO DAILY PRN (Reason: Arthritis Flare Up) Qty: 90 1RF (DME) C- PAP AND SUPPLIES See Rx Instructions .Route .MEDSUPPLY Qty: 1 11RF Rx Instructions: 5-9cm Benlysta 120 mg recon soln 120 mg IV .QMONTH (DME) Hinge Knee Brace See Rx Instructions .Route .MEDSUPPLY Qty: 1 0RF Rx Instructions: As directed hydroxychloroquine 200 mg tablet 200 mg PO BID Qty: 60 3RF methotrexate sodium 2.5 mg tablet 10 mg PO .week Qty: 60 3RF sulfasalazine 500 mg tablet 0.5 g PO BID Qty: 60 3RF Rx Instructions: Take 1 tab daily x1wk then stay on 1 tab twice daily.... give with food (meal/snack) sertraline 100 mg tablet See Rx Instructions .ROUTE .COMPLEX Qty: 60 2RF Dose Instruction: TAKE 2 TABLETS BY MOUTH EVERY DAY Rx Instructions: TAKE 2 TABLETS BY MOUTH EVERY DAY lisinopril 20 mg tablet 20 mg PO DAILY Qty: 90 1RF bupropion HCl 200 mg tablet sustained-release 12 hr See Rx Instructions .ROUTE .COMPLEX Qty: 30 5RF Dose Instruction: TAKE ONE TABLET BY MOUTH EVERY DAY Rx Instructions: TAKE ONE TABLET BY MOUTH EVERY DAY trazodone 100 mg tablet See Rx Instructions .ROUTE .COMPLEX Qty: 60 3RF Dose Instruction: TAKE 2 TABLETS BY MOUTH AT BEDTIME Rx Instructions: TAKE 2 TABLETS BY MOUTH AT BEDTIME dicyclomine 10 mg capsule See Rx Instructions .ROUTE .COMPLEX Qty: 180 1RF Dose Instruction: take 1 capsule BY MOUTH TWICE DAILY Rx Instructions: take 1 capsule BY MOUTH TWICE DAILY warfarin 6 mg tablet See Rx Instructions .ROUTE .COMPLEX Qty: 30 2RF Hold Instructions: Resume on 03/19/22. Dose Instruction: TAKE 1 TABLET BY MOUTH EVERY DAY Rx Instructions: TAKE 1 TABLET BY MOUTH EVERY DAY pantoprazole 40 mg tablet,delayed release (DR/EC) See Rx Instructions .ROUTE .COMPLEX Qty: 60 1RF Dose Instruction: TAKE 1 TABLET BY MOUTH TWICE DAILY Rx Instructions: TAKE 1 TABLET BY MOUTH TWICE DAILY hydrocodone-acetaminophen 5-325 mg tablet 1 tab PO TID PRN (Reason: pain) 30 Days Qty: 30 0RF cholecalciferol (vitamin D3) [Vitamin D3] 25 mcg (1,000 unit) Capsule 25 mcg PO DAILY Discharge Orders: Discharge ED (Routine); Ordered 12/27/22 Ordered By: Reuben Christianson Referrals: Kendy Smith DO [Primary Care Provider] - Discharge Diet: Usual diet Discharge Activity: Increase activity as tolerated Patient Instructions: Puncture Wound (ED), Opioid Safety Activity Restrictions/Additional Instructions: Home and rest. Activity as tolerated. Use ice to the area for comfort. Take antibiotics as directed. Follow-up with primary care for further instructions. Return to ED for worsening symptoms such as high fever greater than 100.4, increasing redness and swelling to the leg, or new concerns. Sign Out Sign Out Data: Patient Sign Out occurred on 12/27/22 at 16:52. Patient's care was discussed, a nd care was transferred from to Reuben Christianson. Coding Level of Care Code ED Lacquer Pin Press Operator for Chg Fwd Documented by User: JUWAN Waddell 12/27/22 17:50 HPI - Wound/Laceration General: Chief Complaint: Wound/Laceration Stated Complaint: right leg injury Time Seen by Provider: 12/27/22 16:29 PFSH ED PFSH: Medical History Acid reflux Binge eating disorder Bursitis DVT (deep venous thrombosis) Essential hypertension Generalized anxiety disorder High risk medication use History of diverticulitis Immunization counseling Insomnia disorder Lupus SLE Major depressive disorder, recurrent severe without psychotic features Prediabetes Primary antiphospholipid syndrome SLE (systemic lupus erythematosus related syndrome) Sleep apnea TIA (transient ischemic attack) left Surgical History History of endometrial ablation History of esophagogastroduodenoscopy (EGD) History of repair of ACL Hx of arthroscopy of knee left knee Hx of carpal tunnel repair bilateral Family History Other Diabetes Palpitations Tachycardia Social History Smoking and tobacco status: never smoked Alcohol intake: current Alcohol intake frequency: holidays/special occasions only Substance/Drug Use: never Physical Exam Extremity: EXTREMITY IMAGE (FRONT): 1. puncture wound; tender; mild ecchymosis Course Vital Signs: Vital signs: Vital Signs Pulse Rate 114 H 12/27/22 15:27 Respiratory Rate 16 12/27/22 15:27 Blood Pressure 139/84 12/27/22 15:27 Pulse Oximetry 94 12/27/22 15:27 Oxygen Delivery Me thod Room Air 12/27/22 15:27 MDM - Wound/Laceration Medical Decision Making 47-year-old female comes in for evaluation of injury to the right upper thigh. Patient had fallen and punctured her right upper thigh with a chainsaw tool that was laying on the ground. Exam of the wound notes a puncture wound to the upper thigh with minimal induration. No active bleeding. No significant hematoma. Differential diagnosis includes fracture, foreign body, puncture wound, hematoma. X-ray of the site noticed no bony injury or foreign body. Reviewed exam with patient with recommendations for treatment and follow-up. Patient was given medication for pain and antibiotics. Patient was stable and discharged home. Lab Data Radiology Impressions Hip/Pelvis X-Ray 12/27/22 16:45 IMPRESSION: No acute findings. All radiology interpretation(s) finalized by discharge Discharge Plan Discharge Patient Disposition: Home Clinical Impression: Puncture wound of right thigh Qualifiers: Encounter type: initial encounter Qualified Code(s): S71.131A - Puncture wound without foreign body, right thigh, initial encounter Condition: Stable Prescriptions: New amoxicillin-pot clavulanate 875-125 mg tablet 1 tab PO BID Qty: 20 0RF hydrocodone-acetaminophen 5-325 mg tablet 1 tab PO Q6H PRN (Reason: pain (scale score 7-10)) Qty: 10 0RF No Action folic acid 1 mg tablet 1 mg PO DAILY Qty: 90 3RF triamcinolone acetonide 0.1 % cream 1 applic topical BID Qty: 80 0RF hydrocodone-acetaminophen 5-325 mg tablet 1 tab PO Q8H PRN (Reason: pain) 7 Days Qty: 21 0RF hydrocodone-acetaminophen 5-325 mg tablet 1 tab PO Q8H PRN (Reason: pain) 21 Days Qty: 30 0RF prednisone 5 mg tablet 5 mg PO DAILY PRN (Reason: Arthritis Flare Up) Qty: 90 1RF (DME) C- PAP AND SUPPLIES See Rx Instructions .Route .MEDSUPPLY Qty: 1 11RF Rx Instructions: 5-9cm Benlysta 120 mg recon soln 120 mg IV .QMONTH (DME) Hinge Knee Brace See Rx Instructions .Route .MEDSUPPLY Qty: 1 0RF Rx Instructions: As directed hydroxychloroquine 200 mg tablet 200 mg PO BID Qty: 60 3RF methotrexate sodium 2.5 mg tablet 10 mg PO .week Qty: 60 3RF sulfasalazine 500 mg tablet 0.5 g PO BID Qty: 60 3RF Rx Instructions: Take 1 tab daily x1wk then stay on 1 tab twice daily.... give with food (meal/snack) sertraline 100 mg tablet See Rx Instructions .ROUTE .COMPLEX Qty: 60 2RF Dose Instruction: TAKE 2 TABLETS BY MOUTH EVERY DAY Rx Instructions: TAKE 2 TABLETS BY MOUTH EVERY DAY lisinopril 20 mg tablet 20 mg PO DAILY Qty: 90 1RF bupropion HCl 200 mg tablet sustained-release 12 hr See Rx Instructions .ROUTE .COMPLEX Qty: 30 5RF Dose Instruction: TAKE ONE TABLET BY MOUTH EVERY DAY Rx Instructions: TAKE ONE TABLET BY MOUTH EVERY DAY trazodone 100 mg tablet See Rx Instructions .ROUTE .COMPLEX Qty: 60 3RF Dose Instruction: TAKE 2 TABLETS BY MOUTH AT BEDTIME Rx Instructions: TAKE 2 TABLETS BY MOUTH AT BEDTIME dicyclomine 10 mg capsule See Rx Instructions .ROUTE .COMPLEX Qty: 180 1RF Dose Instruction: take 1 capsule BY MOUTH TWICE DAILY Rx Instructions: take 1 capsule BY MOUTH TWICE DAILY warfarin 6 mg tablet See Rx Instructions .ROUTE .COMPLEX Qty: 30 2RF Hold Instructions: Resume on 03/19/22. Dose Instruction: TAKE 1 TABLET BY MOUTH EVERY DAY Rx Instructions: TAKE 1 TABLET BY MOUTH EVERY DAY pantoprazole 40 mg tablet,delayed release (DR/EC) See Rx Instructions .ROUTE .COMPLEX Qty: 60 1RF Dose Instruction: TAKE 1 TABLET BY MOUTH TWICE DAILY Rx Instructions: TAKE 1 TABLET BY MOUTH TWICE DAILY hydrocodone-acetaminophen 5-325 mg tablet 1 tab PO TID PRN (Reason: pain) 30 Days Qty: 30 0RF cholecalciferol (vitamin D3) [Vitamin D3] 25 mcg (1,000 unit) Capsule 25 mcg PO DAILY Discharge Orders: Discharge ED (Routine); Ordered 12/27/22 Ordered By: Reuben Christianson Referrals: Kendy Smith DO [Primary Care Provider] - Discharge Diet: Usual diet Discharge Activity: Increase activity as tolerated Patient Instructions: Puncture Wound (ED), Opioid Safety Activity Restrictions/Additional Instructions: Home and rest. Activity as tolerated. Use ice to the area for comfort. Take antibiotics as directed. Follow-up with primary care for further instructions. Return to ED for worsening symptoms such as high fever greater than 100.4, increasing redness and swelling to the leg, or new concerns. Sign Out Sign Out Data: Patient Sign Out occurred on 12/27/22 at 16:52. Patient's care was discussed, and care was transferred from to Reuben Christianson. Coding Level of Care Code ED Lacquer Pin Press Operator for Dariela Poon
--- NOTE | 2022-12-27 16:45 | XRR_ITS ---
PROCEDURE INFORMATION: Exam: XR Right Hip Exam date and time: 12/27/2022 4:46 PM Age: 47 years old Clinical indication: Injury or trauma; Other: Puncture wound; Not specified; Right; Hip; Additional info: Puncture wound R thigh/hip TECHNIQUE: Imaging protocol: Radiologic exam of the right hip. Views: 1 view hip with pelvis when performed. COMPARISON: 1. CR XR pelvis 1-2V* [id number] 11/19/2022 3:[address] abdomen pelvis w con* [id number] 09/21/2021 2:09 PM 3. CR XR pelvis 1-2V* [id number] 10/27/2020 12:30 PM FINDINGS: Tubes, catheters and devices: Bilateral tubal occlusion devices at the pelvis. Bones/joints: No acute fracture or dislocation. Mineralization is normal. Joint spacing and alignment are maintained. Lower lumbar spine degenerative changes. Soft tissues: Unremarkable. No unexpected retained radiopaque foreign body identified. XR/XR hip RT 2-3V wo/w pel* [id number] IMPRESSION: No acute findings.
[2022-12-27] MEDS: morphine 4 mg/mL SDV 1 mL IM (16:52)
[2022-12-27] MEDS: tetanus-dipt-pertussis 0.5 mL SDV IM (16:53)
[2022-12-27] MEDS: ceFAZolin 1,000 MG in water for injection-sterile 2.5 ML 3 MG IM (16:56)
[2022-12-27] MEDS: HYDROcodone-acetaminophen 10-325 mg Tablet 1 TAB PO (17:54)
[2022-12-27] MEDS: bacitracin ointment Pkt 1 EACH TOPICAL (17:54)
== END 2022-12-27 18:04 | disposition home or self-care (01) ==
PROVIDERS: Emergency Provider Nurse Practitioner Family; PCP Family Medicine
DX: S71.131A Puncture wound without foreign body, right thigh, initial encounter (principal); Z79.01 Long term (current) use of anticoagulants; I10 Essential (primary) hypertension; M32.9 Systemic lupus erythematosus, unspecified; Z86.73 Personal history of transient ischemic attack (TIA), and cerebral infarction without residual deficits; W27.0XXA Contact with workbench tool, initial encounter; Z23 Encounter for immunization
CPT/HCPCS: 73502; 90471; 90715; 96372; 99284; J0690; J2270

== ENCOUNTER 2023-01-18 07:37 | Oncology outpatient (recurring) (ONCR) | payer MEDICARE, MEDICAID, SELFPAY ==
[2023-01-18 07:54] VITALS: BMI 43.4
[2023-01-18 08:20] VITALS: BP 129/80; PULSE 78; RESP 16; TEMP 36.6; O2SAT 96
[2023-01-18] MEDS: acetaminophen 325 mg Tablet 650 MG PO (08:35)
[2023-01-18] MEDS: sodium chloride 0.9% 250 ML 75 ML IV (08:38)
[2023-01-18] MEDS: diphenhydrAMINE 50 mg/mL SDV 1mL 25 MG IVP (08:43)
[2023-01-18] MEDS: methylPREDNISolone sod succ 40 mg SDV IVP (08:48)
[2023-01-18 09:20] LABS: Add Urine Microscopic? YES; Bacteria Urine 1+ /hpf; Bilirubin Urine Neg (Negative); Blood Urine Neg (Negative); Glucose Urine UA Norm (Normal); Ketones Urine Negative (Negative); Leukocyte Esterase Urine Trace (Negative); Mucus Urine 3+ /hpf; Nitrate Urine Negative (Negative); Protein Urine Neg (Negative); RBC Urine 0-4 /hpf (0-2); Specific Gravity, Urine 1.025 (1.005-1.030); Urine Appearance Clear (CLEAR); Urine Color Yellow (Yellow); Urobilinogen Urine Norm (Negative); WBC Urine 0-4 /hpf (0-5); pH Urine 5 (5-7)
[2023-01-18 10:38] VITALS: BP 125/80; PULSE 72; RESP 17; TEMP 36.4; O2SAT 97
== END 2023-02-05 23:59 | disposition home or self-care (01) ==
PROVIDERS: PCP Family Medicine; Visit Provider Internal Medicine Rheumatology
DX: K57.30 Diverticulosis of large intestine without perforation or abscess without bleeding (principal)
CPT/HCPCS: 81001; 96374; 96375; 96413; J0490; J1200; J2920; J7050

== ENCOUNTER 2023-01-18 14:10 | Outpatient (CLI) | payer MEDICARE, MEDICAID, SELFPAY ==
--- NOTE | 2023-01-18 14:28 | XR_ITS ---
WS: [id number] Left hand, 3 views, 01/18/2023 Clinical Data: [facility] pain Comparison: None. Findings: No fractures or dislocations are seen. The soft tissues are unremarkable. There is minimal osteoarthr itis at the base of the first metacarpal. No periarticular demineralization or calcifications are seen. 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
== END 2023-01-18 14:11 | disposition home or self-care (01) ==
LOC: RAD 14:13
PROVIDERS: PCP Family Medicine; Visit Provider Family Medicine
DX: M18.12 Unilateral primary osteoarthritis of first carpometacarpal joint, left hand (principal)
CPT/HCPCS: 73130

== ENCOUNTER 2023-02-12 10:35 | Outpatient (CLI) | payer MEDICARE, MEDICAID, SELFPAY ==
--- NOTE | 2023-02-12 11:00 | MR_ITS ---
WS: [id number] MRI LUMBAR SPINE NONCONTRAST TECHNIQUE: Sagittal T1, T2 and STIR imaging. Axial T1 and T2 imaging. CLINICAL INFORMATION: chronic low back pain COMPARISON: None. FINDINGS: Counting performed from the craniocervical junction. Only 11 thoracic type rib bearing vert ebral bodies. Lumbar vertebral bodies are labeled L1-L5. Mild lumbar curve. No acute compression. No high-grade central canal stenosis. Tiny central disc prot rusion T12-L1. L1-L2: Mild annular bulging. Mild facet arthropathy. Spinal canal and foramen are patent. L2-L3: Mild annular bulging. Moderate facet arthropathy. Spinal canal and foramen are patent. L3-L4: Slight retrolisthesis. Mild annular bulging. Slight narrowing RIGHT subarticular recess. Moder ate facet arthropathy. Mild LEFT and no significant RIGHT foraminal narrowing. L4-L5: Mild annular bulging. Moderate facet arthropathy. Mild LEFT greater than RIGHT foraminal narro wing. Spinal canal is patent. L5-S1: Mild annular bulging. Spinal canal and foramen are patent. Mild facet arthropathy. Visualized pelvic bony structures: Normal. Paravertebral soft tissues: Normal. IMPRESSION: 1. Counting performed from the craniocervical junction. Only 11 thoracic type rib bearing vertebra l bodies. Lumbar vertebral bodies are labeled L1-L5. Recommend plain film correlation prior to any laurent rgical intervention. 2. Mild annular bulging L3-4 with slight narrowing of the RIGHT subarticular recess. Impingement tra versing RIGHT L4 nerve root. 3. Mild LEFT L3-4 foraminal narrowing. 4. Mild LEFT L4-5 foraminal narrowing. 5. Moderate facet arthropathy worse at L3-L4 L4-L5. 6. Tiny disc protrusions in the cervical spine on the right of way man imaging at C3-C4 C4-C5 and C5-C6 with mi ld central canal stenosis. 7. Additional prominent disc protrusion in the thoracic spine T4-5. This can be further evaluated wi cervical and thoracic spine MRI if indicated.
== END 2023-02-12 10:36 | disposition home or self-care (01) ==
LOC: RAD 10:35
PROVIDERS: PCP Family Medicine; Visit Provider Family Medicine
DX: M54.41 Lumbago with sciatica, right side (principal); M47.816 Spondylosis without myelopathy or radiculopathy, lumbar region; M48.02 Spinal stenosis, cervical region
CPT/HCPCS: 72148

== ENCOUNTER 2023-02-15 07:32 | Oncology outpatient (recurring) (ONCR) | payer MEDICARE, SELFPAY ==
[2023-02-15 08:12] LABS: Basophils # 0.1 10^3/uL (0.0-0.1); Basophils % 1.1 %; Eosinophils # 0.2 10^3/uL (0.0-0.8); Eosinophils % 4.2 %; Hematocrit 46.1 % (36-47); Lymphocytes # 1.4 10^3/uL (0.8-4.8); Lymphocytes % 26.3 %; Mean Corpuscular HGB Conc 33.2 g/dL (30-55); Mean Corpuscular Hemoglobin 31.4 pg (27-33); Mean Corpuscular Volume 94.5 fl (85-98); Mean Platelet Volume 9.9 fL (7.4-10.4); Monocytes # 0.7 10^3/uL (0.2-0.9); Monocytes % 12.8 %; Neutrophils % 55.2 %; Nucleated Red Blood Cells % 0 %; Platelet Count 218 10^3/cmm (157-399); Red Blood Count 4.88 10^6/uL (3.85-5.65); White Blood Count 5.25 10^3/uL (3.29-11.43)
[2023-02-15 08:31] LABS: Alanine Aminotransferase 26 U/L (0-33); Albumin Level 4.1 g/dL (3.5-5.2); Alkaline Phosphatase 54 U/L (35-105); Globulin 2.7 g/dL (1.3-4.6); Glomerular Filtration Rate 89.3 mL/min (90-130); Total Bilirubin 0.3 mg/dL (0.15-1.2); Total Protein 6.8 g/dL (6.6-8.7)
[2023-02-15] MEDS: sodium chloride 0.9% 250 ML 75 ML IV (08:37)
[2023-02-15] MEDS: acetaminophen 325 mg Tablet 650 MG PO (08:38)
[2023-02-15 08:39] LABS: Aspartate Amino Transferase 23 U/L (0-32)
[2023-02-15] MEDS: diphenhydrAMINE 50 mg/mL SDV 1mL 25 MG IVP (08:39)
[2023-02-15] MEDS: methylPREDNISolone sod succ 40 mg SDV IVP (08:45)
[2023-02-15 11:00] VITALS: BP 138/70; PULSE 71; RESP 16; TEMP 36.6; O2SAT 96
== END 2023-03-07 23:59 | disposition home or self-care (01) ==
PROVIDERS: PCP Family Medicine; Visit Provider Internal Medicine Rheumatology
DX: K57.31 Diverticulosis of large intestine without perforation or abscess with bleeding (principal)
CPT/HCPCS: 80076; 82565; 85025; 96413; J0490; J1200; J2920; J7050

== ENCOUNTER → 2023-03-07 13:57 | Outpatient (BNVA) | payer MEDICARE, MEDICAID, SELFPAY | PROVIDERS: PCP Family Medicine; Visit Provider Family Medicine | DX: Z71.85 Encounter for immunization safety counseling (principal); Z13.6 Encounter for screening for cardiovascular disorders; Z00.00 Encounter for general adult medical examination without abnormal findings; Z12.31 Encounter for screening mammogram for malignant neoplasm of breast | CPT/HCPCS: 80053; 80061; 84443 ==

== ENCOUNTER 2023-03-22 07:36 | Oncology outpatient (recurring) (ONCR) | payer OTHER, MEDICAID, SELFPAY ==
[2023-03-22 07:46] VITALS: BP 123/81; PULSE 69; TEMP 36.3; O2SAT 98
[2023-03-22] MEDS: diphenhydrAMINE 50 mg/mL SDV 1mL 25 MG IVP (08:25)
[2023-03-22] MEDS: sodium chloride 0.9% 250 ML 75 ML IV (08:25)
[2023-03-22] MEDS: acetaminophen 325 mg Tablet 650 MG PO (08:25)
[2023-03-22] MEDS: methylPREDNISolone sod succ 40 mg/mL INJ IVP (08:26)
[2023-03-22] MEDS: BELIMUMAB IV (08:50)
[2023-03-22] MEDS: SODIUM CHLORIDE 0.9% IV (08:50)
[2023-03-22 10:35] VITALS: BP 134/85; PULSE 71; RESP 16; TEMP 36.4; O2SAT 99
== END 2023-04-07 23:59 | disposition home or self-care (01) ==
PROVIDERS: PCP Family Medicine; Visit Provider Internal Medicine Rheumatology
DX: K57.31 Diverticulosis of large intestine without perforation or abscess with bleeding (principal)
CPT/HCPCS: 96375; 96413; 96415; J0490; J1200; J2920; J7050

== ENCOUNTER 2023-03-25 13:38 | Outpatient (CLI) | payer OTHER, MEDICAID, SELFPAY ==
--- NOTE | 2023-03-25 13:47 | MM_ITS ---
WS: [id number] Bilateral screening 3D tomosynthesis digital mammogram, 03/25/2023 Clinical Data: screening Comparison: 01/31/2018, 03/15/2016, 03/08/2015. Findings: The breast parenchymal pattern shows fibroglandular tissue. No spiculated masses or clustered calcifi cations are seen. There are no secondary signs of carcinoma. Impression: 1. Negative bilateral mammogram unchanged. 2. Recommend annual screening mammograms. MM/[place] [id number] BIRADS: 1-Negative FOLLOW UP: 1 Year Follow-up The CAD rechecker was used.
== END 2023-03-25 13:39 | disposition home or self-care (01) ==
LOC: RAD 13:39
PROVIDERS: PCP Family Medicine; Visit Provider Family Medicine
DX: Z12.31 Encounter for screening mammogram for malignant neoplasm of breast (principal)
CPT/HCPCS: 77063; 77067

== ENCOUNTER → 2023-04-15 08:29 | Outpatient (BNVA) | payer OTHER, MEDICAID, SELFPAY | PROVIDERS: PCP Family Medicine; Referring Provider Family Medicine; Visit Provider Anesthesiology Pain Medicine | DX: G89.29 Other chronic pain; M51.16 Intervertebral disc disorders with radiculopathy, lumbar region; M48.061 Spinal stenosis, lumbar region without neurogenic claudication | CPT/HCPCS: 99204 ==

== ENCOUNTER 2023-04-19 07:26 | Oncology outpatient (recurring) (ONCR) | payer OTHER, MEDICAID, SELFPAY ==
[2023-04-19 07:54] VITALS: BP 127/88; PULSE 82; RESP 17; TEMP 36.9; O2SAT 92
[2023-04-19] MEDS: sodium chloride 0.9% 250 ML 75 ML IV (08:24)
[2023-04-19] MEDS: acetaminophen 325 mg Tablet 650 MG PO (08:25)
[2023-04-19] MEDS: methylPREDNISolone sod succ 40 mg/mL INJ IVP (08:28)
[2023-04-19] MEDS: diphenhydrAMINE 50 mg/mL SDV 1mL 25 MG IVP (08:31)
[2023-04-19] MEDS: SODIUM CHLORIDE 0.9% IV (08:50)
[2023-04-19] MEDS: BELIMUMAB IV (08:50)
[2023-04-19 10:05] VITALS: BP 128/79; PULSE 76; O2SAT 94
== END 2023-05-08 23:59 | disposition home or self-care (01) ==
PROVIDERS: PCP Family Medicine; Visit Provider Internal Medicine Rheumatology
DX: K57.31 Diverticulosis of large intestine without perforation or abscess with bleeding (principal)
CPT/HCPCS: 96375; 96413; J0490; J1200; J2920; J7050

== ENCOUNTER → 2023-04-25 14:27 | Outpatient (BNVA) | payer OTHER, MEDICAID, SELFPAY | PROVIDERS: PCP Family Medicine; Visit Provider Anesthesiology Pain Medicine | DX: G89.29 Other chronic pain; M51.16 Intervertebral disc disorders with radiculopathy, lumbar region | CPT/HCPCS: 64483; 64484; J1100; J3490 ==

== ENCOUNTER → 2023-04-30 14:08 | Outpatient (BNVA) | payer OTHER, MEDICAID, SELFPAY | PROVIDERS: PCP Family Medicine; Visit Provider Internal Medicine Rheumatology | DX: M32.9 Systemic lupus erythematosus, unspecified (principal); Z79.899 Other long term (current) drug therapy; D68.61 Antiphospholipid syndrome; Z71.89 Other specified counseling | CPT/HCPCS: 20600; 36415; 80076; 82565; 85025; 85651; 86140; 99214 ==

== ENCOUNTER → 2023-05-13 13:38 | Outpatient (BNVA) | payer OTHER, MEDICAID, SELFPAY | PROVIDERS: PCP Family Medicine; Visit Provider Anesthesiology Pain Medicine | DX: M54.16 Radiculopathy, lumbar region (principal); G89.29 Other chronic pain; M54.41 Lumbago with sciatica, right side | CPT/HCPCS: 64483; 64484; J1100; J3490 ==

== ENCOUNTER → 2023-05-16 14:54 | Outpatient (BNVA) | payer OTHER, MEDICAID, SELFPAY | PROVIDERS: PCP Family Medicine; Visit Provider Family Medicine | DX: Z01.419 Encounter for gynecological examination (general) (routine) without abnormal findings (principal) | CPT/HCPCS: 87624 ==

== ENCOUNTER 2023-05-20 13:33 | Oncology outpatient (recurring) (ONCR) | payer OTHER, MEDICAID, SELFPAY ==
[2023-05-20 13:51] VITALS: BP 134/85; PULSE 68; RESP 16; TEMP 36.8; O2SAT 96
[2023-05-20] MEDS: sodium chloride 0.9% 250 ML 75 ML IV (14:30)
[2023-05-20] MEDS: acetaminophen 325 mg Tablet 650 MG PO (14:30)
[2023-05-20] MEDS: methylPREDNISolone sod succ 125 mg/2 mL INJ 40 MG IVP (14:34)
[2023-05-20] MEDS: diphenhydrAMINE 50 mg/mL SDV 1mL 25 MG IVP (14:38)
[2023-05-20] MEDS: BELIMUMAB IV (15:00)
[2023-05-20] MEDS: SODIUM CHLORIDE 0.9% IV (15:00)
== END 2023-06-06 23:59 | disposition home or self-care (01) ==
LOC: ONCMED 13:34
PROVIDERS: PCP Family Medicine; Visit Provider Internal Medicine Rheumatology
DX: K57.31 Diverticulosis of large intestine without perforation or abscess with bleeding (principal)
CPT/HCPCS: 96375; 96413; J0490; J1200; J2930; J7050

== ENCOUNTER → 2023-05-27 10:42 | Outpatient (BNVA) | payer OTHER, MEDICAID, SELFPAY | PROVIDERS: PCP Family Medicine; Visit Provider Anesthesiology Pain Medicine | DX: G89.29 Other chronic pain; M51.16 Intervertebral disc disorders with radiculopathy, lumbar region; M48.061 Spinal stenosis, lumbar region without neurogenic claudication | CPT/HCPCS: 99214 ==

== ENCOUNTER 2023-06-04 09:02 | Outpatient (CLI) | payer OTHER, MEDICAID, SELFPAY ==
[2023-06-04 09:54] LABS: Basophils # 0.1 10^3/uL (0.0-0.1); Basophils % 0.9 %; Eosinophils # 0.2 10^3/uL (0.0-0.8); Eosinophils % 3.2 %; Hematocrit 43.1 % (36-47); Lymphocytes # 1.7 10^3/uL (0.8-4.8); Lymphocytes % 29.6 %; Mean Corpuscular HGB Conc 33.2 g/dL (30-55); Mean Corpuscular Hemoglobin 31.4 pg (27-33); Mean Corpuscular Volume 94.5 fl (85-98); Mean Platelet Volume 9.7 fL (7.4-10.4); Monocytes # 0.6 10^3/uL (0.2-0.9); Monocytes % 10.3 %; Neutrophils # 3.18 10^3/uL (1.8-7.7); Neutrophils % 55.6 %; Nucleated Red Blood Cells % 0 %; Platelet Count 202 10^3/cmm (157-399); Red Blood Count 4.56 10^6/uL (3.85-5.65); Red Cell Distribution Width 13.1 % (12.1-15.1); White Blood Count 5.71 10^3/uL (3.29-11.43)
[2023-06-04 10:19] LABS: Alanine Aminotransferase 20 U/L (0-33); Alkaline Phosphatase 52 U/L (35-105); Aspartate Amino Transferase 17 U/L (0-32); Globulin 2.9 g/dL (1.3-4.6); Glomerular Filtration Rate 89.3 mL/min (90-130); Total Bilirubin 0.3 mg/dL (0.15-1.2); Total Protein 6.9 g/dL (6.6-8.7)
== END 2023-06-04 09:03 | disposition home or self-care (01) ==
LOC: LAB 09:06
PROVIDERS: PCP Family Medicine; Visit Provider Internal Medicine Rheumatology
DX: Z79.899 Other long term (current) drug therapy (principal); M32.9 Systemic lupus erythematosus, unspecified; D68.61 Antiphospholipid syndrome
CPT/HCPCS: 36415; 80076; 82565; 85025; 86140

== ENCOUNTER 2023-06-17 13:34 | Oncology outpatient (recurring) (ONCR) | payer OTHER, MEDICAID, SELFPAY ==
[2023-06-17 14:06] VITALS: BP 133/88; PULSE 69; RESP 18; TEMP 36.8; O2SAT 98
[2023-06-17] MEDS: sodium chloride 0.9% 250 ML 75 ML IV (14:11)
[2023-06-17] MEDS: diphenhydrAMINE 50 mg/mL SDV 1mL 25 MG IVP (14:12)
[2023-06-17] MEDS: acetaminophen 325 mg Tablet 650 MG PO (14:12)
[2023-06-17] MEDS: methylPREDNISolone sod succ 40 mg/mL INJ IVP (14:18)
[2023-06-17] MEDS: SODIUM CHLORIDE 0.9% IV (14:41)
[2023-06-17] MEDS: BELIMUMAB IV (14:41)
== END 2023-07-07 23:59 | disposition home or self-care (01) ==
PROVIDERS: PCP Family Medicine; Visit Provider Internal Medicine Rheumatology
DX: K57.31 Diverticulosis of large intestine without perforation or abscess with bleeding (principal)
CPT/HCPCS: 96375; 96413; J0490; J1200; J2920; J7050

== ENCOUNTER → 2023-08-13 13:13 | Outpatient (BNVA) | payer OTHER, MEDICAID, SELFPAY | PROVIDERS: PCP Family Medicine; Visit Provider Internal Medicine Rheumatology | DX: M32.9 Systemic lupus erythematosus, unspecified (principal); Z79.899 Other long term (current) drug therapy; R51.9 Headache, unspecified; D68.61 Antiphospholipid syndrome; Z71.89 Other specified counseling | CPT/HCPCS: 36415; 80076; 82565; 82657; 85025; 86140; 99214 ==

== ENCOUNTER 2023-08-21 07:56 | Oncology outpatient (recurring) (ONCR) | payer OTHER, MEDICAID, SELFPAY ==
[2023-08-21 08:29] VITALS: BP 135/76; PULSE 71; RESP 17; TEMP 36.2; O2SAT 96
[2023-08-21] MEDS: sodium chloride 0.9% 250 ML 75 ML IV (08:43)
[2023-08-21] MEDS: acetaminophen 325 mg Tablet 650 MG PO (08:45)
[2023-08-21] MEDS: diphenhydrAMINE 50 mg/mL SDV 1mL 25 MG IVP (08:48)
[2023-08-21] MEDS: methylPREDNISolone sod succ 40 mg/mL INJ IVP (08:51)
[2023-08-21] MEDS: SODIUM CHLORIDE 0.9% IV (08:57)
[2023-08-21] MEDS: BELIMUMAB IV (08:57)
[2023-08-21 10:15] VITALS: BP 151/71; PULSE 68; RESP 18; TEMP 36.6; O2SAT 96
== END 2023-09-06 23:59 | disposition home or self-care (01) ==
PROVIDERS: PCP Family Medicine; Visit Provider Internal Medicine Rheumatology
DX: K57.30 Diverticulosis of large intestine without perforation or abscess without bleeding (principal)
CPT/HCPCS: 96365; 96375; J0490; J1200; J2919; J7050

== ENCOUNTER → 2023-09-12 15:26 | Outpatient (BNVA) | payer OTHER, MEDICAID, SELFPAY | PROVIDERS: PCP Family Medicine; Visit Provider Family Medicine | DX: R06.02 Shortness of breath (principal); R06.01 Orthopnea; H81.10 Benign paroxysmal vertigo, unspecified ear; Z79.899 Other long term (current) drug therapy; I10 Essential (primary) hypertension | CPT/HCPCS: 80053; 83880; 85025 ==

== ENCOUNTER 2023-09-18 14:01 | Oncology outpatient (recurring) (ONCR) | payer OTHER, MEDICAID, SELFPAY ==
--- NOTE | 2023-09-18 14:41 | PC.NURSE ---
Upon completing [facility] Infusion checklist, patient stated she had experienced shortness of breath, that was new for her. Patient stated that her PCP is aware of this and has ordered an upcoming chest CT.
[2023-09-18 14:45] VITALS: BP 167/107; PULSE 72; RESP 16; TEMP 36.4; O2SAT 96
[2023-09-18] MEDS: acetaminophen 325 mg Tablet 650 MG PO (15:08)
[2023-09-18] MEDS: sodium chloride 0.9% 250 ML 75 ML IV (15:09)
[2023-09-18] MEDS: diphenhydrAMINE 50 mg/mL SDV 1mL 25 MG IVP (15:09)
[2023-09-18] MEDS: methylPREDNISolone sod succ 40 mg/mL INJ IVP (15:10)
[2023-09-18] MEDS: BELIMUMAB IV (15:35)
[2023-09-18] MEDS: SODIUM CHLORIDE 0.9% IV (15:35)
[2023-09-18 17:10] VITALS: BP 166/102; PULSE 68; RESP 17; TEMP 36.8; O2SAT 97
== END 2023-10-06 23:59 | disposition home or self-care (01) ==
PROVIDERS: PCP Family Medicine; Visit Provider Internal Medicine Rheumatology
DX: K57.30 Diverticulosis of large intestine without perforation or abscess without bleeding (principal)
CPT/HCPCS: 96375; 96413; J0490; J1200; J2919; J7050

== ENCOUNTER 2023-09-19 14:03 | Emergency (ER) | payer MEDICARE, MEDICAID, SELFPAY ==
[2023-09-19 14:10] VITALS: BP 157/97; PULSE 83; RESP 18; TEMP 36.7; O2SAT 97; BMI 47.5
--- NOTE | 2023-09-19 16:04 | ECG_ITS ---
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 Measurements Intervals [place] Rate: 73 P: 50 [place]: 163 QRS: 7 QRSD: 97 T: 19 QT: 392 QTc: 434 Interpretive Statements SINUS RHYTHM No previous ECG available for comparison Electronically Signed On 09-19-2023 22:04:17 CDT by Candace Rogel M.D. [id number]
--- NOTE | 2023-09-19 16:05 | XRR_ITS ---
PROCEDURE INFORMATION: Exam: XR Chest Exam date and time: 09/19/2023 4:24 PM Age: 47 years old Clinical indication: Cardiovascular condition or disease; Congestive heart failure (chf); Cause unknown TECHNIQUE: Imaging protocol: Radiologic exam of the chest. Views: 1 view. COMPARISON: No relevant prior studies available. FINDINGS: Airway: Patent Lungs: Unremarkable. No consolidation. Pleural spaces: Unremarkable. No pleural effusion. No pneumothorax. Heart/Mediastinum: Cardiomediastinal silhouette is magnified due to technique. Bones/joints: No acute skeletal abnormality or aggressive osseous lesion. XR/XR chest 1V portable [id number] IMPRESSION: No acute findings.
--- NOTE | 2023-09-19 16:06 | W.ED.GENADLT ---
HPI - General Adult General: Chief complaint: General Medical Stated complaint: sob, high bp Time Seen by Provider: 09/19/23 16:04 History of Present Illness: 47-year-old female comes in today with some complaints of elevated blood pressure. Patient has noticed increased blood pressure over the last week. Review of the record of previously recorded blood pressures for the last few years patient's blood pressure tends to stay in the range of 120s to 130s systolic. Patient has had some episodes where her blood pressure was more elevated into the 160s and 170s. Today patient's blood pressure was 151/101. Patient did report some shortness of breath and a headache. Patient appears nontoxic. Patient does have a history of lupus, JOELLEN, MDD and TIAs. Patient does routinely take a blood thinner warfarin due to history of DVTs also. Patient routinely gets a infusion of biologic agent for her lupus. Patient recently had this done yesterday. Review of Systems General: Reports: 10 or more systems reviewed and unremarkable except in HPI and below PFSH ED PFSH: Medical History History of diverticulitis TIA (transient ischemic attack) left Bursitis Sleep apnea Immunization counseling High risk medication use Primary antiphospholipid syndrome SLE (systemic lupus erythematosus related syndrome) DVT (deep venous thrombosis) Essential hypertension Acid reflux Insomnia disorder Prediabetes Lupus SLE Binge eating disorder Generalized anxiety disorder Major depressive disorder, recurrent severe without psychotic features Surgical History History of repair of ACL Hx of carpal tunnel repair bilateral History of esophagogastroduodenoscopy (EGD) History of endometrial ablation Hx of arthroscopy of knee left knee Family History Other Diabetes Palpitations Tachycardia Social History Smoking and tobacco/nicotine status: never used tobacco/nicotine Alcohol intake: never Substance/Drug Use: never Physical Exam Const: COMMON NORMALS: alert HENMT: COMMON NORMALS: normocephalic HEAD & SCALP: normocephalic Neck/C-Spine: COMMON NORMALS: full ROM Resp: COMMON NORMALS: normal respiratory effort and clear to auscultation bilaterally AUSCULTATION: clear to auscultation bilaterally Cardio: COMMON NORMALS: regular rate RATE: regular rate GI: COMMON NORMALS: Soft to palpation and non-tender PALPATION: Yes Soft to palpation Back/Pelvis: COMMON NORMALS: thoracic and lumbar spine normal to inspection Extremity: COMMON NORMALS: normal to inspection Neuro: SENSORIUM/ORIENTATION: Yes alert Skin: COMMON NORMALS: turgor normal GENERAL SKIN EXAM: turgor normal Course Vital Signs: Vital signs: Vital Signs Temperature 98.1 F 09/19/23 14:10 Pulse Rate 76 09/19/23 16:30 Respiratory Rate 15 09/19/23 16:30 Blood Pressure 151/101 09/19/23 16:30 Pulse Oximetry 97 09/19/23 16:30 Oxygen Delivery Me thod Room Air 09/19/23 16:30 MDM - General Adult Medical Decision Making 47-year-old female comes in today with some shortness of breath and headache and elevated blood pressure. On exam blood pressure was 157/97. Lungs were clear to auscultation. Patient had no significant lower extremity edema. Abdomen was soft nontender. Pupils were equal and reactive. No focal neurodeficits. Differential diagnosis includes but not limited to uncontrolled hypertension, intracranial bleeding, unlikely ACS, CHF, electrolyte imbalance. Blood pressure was brought down to 120/70 and patient had relief of headache and felt much better. Patient will be continued on clonidine 0.1 mg twice a day. Did discuss the use of hydrochlorothiazide but patient has allergies to sulfa drugs. Recommended talking to her primary care physician for changes in her medication. Recommend continuing the lisinopril as directed. Patient reported understanding and agreed to plan. Lab Data 09/19/23 16:22 09/19/23 16:22 Radiology Impressions Chest X-Ray 09/19/23 16:05 IMPRESSION: No acute findings. Head CT 09/19/23 16:19 IMPRESSION: No acute intracranial abnormality. Laboratory Results WBC 10.46 10^3/uL (3.29-11.43) 09/19/23 16:22 RBC 4.94 10^6/uL (3.85-5.65) 09/19/23 16:22 Hgb 15.90 g/dL (11.27-16.99) 09/19/23 16: Hct 46.1 % (36-47) 09/19/23 16:22 MCV 93.3 fl (85-98) 09/19/23 16:22 MCH 32.2 pg (27-33) 09/19/23 16:22 MCHC 34.5 g/dL (30-55) 09/19/23 16:22 RDW 12.0 % (12.1-15.1) L 09/19/23 16:22 Plt Count 229 10^3/cmm (157-399) 09/19/23 16:22 MPV 9.6 fL (7.4-10.4) 09/19/23 16:22 Neut % (Auto) 63.6 % 09/19/23 16:22 Lymph % (Auto) 23.4 % 09/19/23 16:22 Callahan % (Auto) 10.3 % 09/19/23 16:22 Eos % (Auto) 1.8 % 09/19/23 16:22 Baso % (Auto) 0.7 % 09/19/23 16:22 Neut # (Auto) 6.65 10^3/uL (1.8-7.7) 09/19/23 16:22 Lymph # (Auto) 2.5 10^3/uL (0.8-4.8) 09/19/23 16:22 Callahan # (Auto) 1.1 10^3/uL (0.2-0.9) H 09/19/23 16:22 Eos # (Auto) 0.2 10^3/uL (0.0-0.8) 09/19/23 16:22 Baso # (Auto) 0.1 10^3/uL (0.0-0.1) 09/19/23 16:22 Nucleated RBC % (auto) 0 % 09/19/23 16:22 Nucleated RBCs # 0.0 /100WBC 09/19/23 16:22 Sodium 143 mmol/L (136-145) 09/19/23 16:22 Potassium 3.5 mmol/L (3.5-5.1) 09/19/23 16:22 Chloride 104 mmol/L (98-107) 09/19/23 16:22 Carbon Dioxide 27 mmol/L (22-29) 09/19/23 16:22 Anion Gap 15.5 (5-19) 09/19/23 16:22 BUN 15 mg/dL (6-20) 09/19/23 16:22 Creatinine 0.7 mg/dL (0.5-0.9) 09/19/23 16:22 GFR Calculation 89.3 mL/min (90-130) L 09/19/23 16:22 Glucose 95 mg/dL (65-115) 09/19/23 16:22 Calculated Osmolality 297 mOsm/kg (285-295) H 09/19/23 16:22 Calcium 9.1 mg/dL (8.5-10.5) 09/19/23 16:22 Total Bilirubin 0.3 mg/dL (0.15-1.2) 09/19/23 16:22 AST 20 U/L (0-32) 09/19/23 16:22 ALT 16 U/L (0-33) 09/19/23 16:22 Alkaline Phosphatase 66 U/L (35-105) 09/19/23 16:22 NT-Pro-B Natriuret Pep 251 pg/mL (0-125) H 09/19/23 16:22 Total Protein 7.1 g/dL (6.6-8.7) 09/19/23 16:22 Albumin 4.2 g/dL (3.5-5.2) 09/19/23 16:22 Globulin 2.9 g/dL (1.3-4.6) 09/19/23 16:22 Urine Color Yellow (Yellow) 09/19/23 16:29 Urine Appearance Clear (CLEAR) 09/19/23 16:29 Urine pH 5 (5-7) 09/19/23 16:29 Ur Specific Jewell 1.030 (1.005-1.030) 09/19/23 16:29 Urine Protein Neg (Negative) 09/19/23 16:29 Urine Glucose (UA) Norm (Normal) 09/19/23 16:29 Urine Ketones Negative (Negative) 09/19/23 16: Urine Blood Neg (Negative) 09/19/23 16: Urine Nitrate Negative (Negative) 09/19/23 16: Urine Bilirubin Neg (Negative) 09/19/23 16:29 Urine Urobilinogen Norm mg/dL (Negative) 09/19/23 16:29 Ur Leukocyte Esterase Negative (Negative) 09/19/23 16:29 All radiology interpretation(s) finalized by discharge Discharge Plan Discharge Patient Disposition: Home Clinical Impression: Hypertensive emergency Condition: Stable Prescriptions: New clonidine HCl 0.1 mg tablet 0.1 mg PO BID Qty: 60 0RF No Action triamcinolone acetonide 0.1 % cream 1 applic topical BID Qty: 80 0RF topiramate 50 mg tablet 50 mg PO BID 30 Days Qty: 60 0RF (DME) C- PAP AND SUPPLIES See Rx Instructions .Route .MEDSUPPLY Qty: 1 11RF Rx Instructions: 5-9cm Benlysta 120 mg recon soln 120 mg IV .QMONTH (DME) Hinge Knee Brace See Rx Instructions .Route .MEDSUPPLY Qty: 1 0RF Rx Instructions: As directed acetaminophen 500 mg capsule 1,000 mg PO BID (DME) RSV vaccine See Rx Instructions .Route .MEDSUPPLY Qty: 1 0RF Rx Instructions: As directed Abrysvo 120 mcg/0.5 mL recon soln 0.5 ml IM ONCE Qty: 1 0RF azathioprine 50 mg tablet 100 mg PO BID Qty: 120 5RF hydrocodone-acetaminophen 5-325 mg tablet 1 tab PO TID PRN (Reason: pain) 30 Days Qty: 30 0RF hydrocodone-acetaminophen 5-325 mg tablet 1 tab PO Q8H PRN (Reason: pain) 30 Days Qty: 30 0RF hydroxychloroquine 200 mg tablet 200 mg PO BID Qty: 180 1RF prednisone 5 mg tablet 5 mg PO DAILY Qty: 90 1RF celecoxib [Celebrex] 200 mg capsule 200 mg PO BID Qty: 60 1RF ciprofloxacin-dexamethasone 0.3-0.1 % drops,suspension 4 drp otic (ear) BID 7 Days Qty: 7.5 0RF Rx Instructions: To both ears bupropion HCl 200 mg tablet sustained-release 12 hr See Rx Instructions .ROUTE .COMPLEX Qty: 90 1RF Dose Instruction: TAKE ONE TABLET BY MOUTH EVERY DAY Rx Instructions: TAKE ONE TABLET BY MOUTH EVERY DAY dicyclomine 10 mg capsule See Rx Instructions .ROUTE .COMPLEX Qty: 180 1RF Dose Instruction: take 1 capsule BY MOUTH TWICE DAILY Rx Instructions: take 1 capsule BY MOUTH TWICE DAILY warfarin 6 mg tablet See Rx Instructions .ROUTE .COMPLEX Qty: 30 2RF Hold Instructions: Resume on 03/19/22. Dose Instruction: TAKE 1 TABLET BY MOUTH EVERY DAY Rx Instructions: TAKE 1 TABLET BY MOUTH EVERY DAY trazodone 100 mg tablet See Rx Instructions .ROUTE .COMPLEX Qty: 180 0RF Dose Instruction: TAKE 2 TABLETS BY MOUTH AT BEDTIME Rx Instructions: TAKE 2 TABLETS BY MOUTH AT BEDTIME pantoprazole 40 mg tablet,delayed release (DR/EC) See Rx Instructions .ROUTE .COMPLEX Qty: 180 1RF Dose Instruction: TAKE 1 TABLET BY MOUTH TWICE DAILY Rx Instructions: TAKE 1 TABLET BY MOUTH TWICE DAILY sertraline 100 mg tablet See Rx Instructions .ROUTE .COMPLEX Qty: 90 0RF Dose Instruction: TAKE 2 TABLETS BY MOUTH EVERY DAY Rx Instructions: TAKE 2 TABLETS BY MOUTH EVERY DAY lisinopril 20 mg tablet See Rx Instructions .ROUTE .COMPLEX Qty: 90 1RF Dose Instruction: TAKE 1 TABLET BY MOUTH DAILY Rx Instructions: TAKE 1 TABLET BY MOUTH DAILY cholecalciferol (vitamin D3) [Vitamin D3] 25 mcg (1,000 unit) Capsule 25 mcg PO DAILY Discharge Orders: Discharge ED (Routine); Ordered 09/19/23 Ordered By: Reuben Christianson Referrals: Kendy Smith DO [Primary Care Provider] - Discharge Diet: Usual diet Discharge Activity: Increase activity as tolerated Patient Instructions: Hypertension (ED) Activity Restrictions/Additional Instructions: Follow-up with primary care in 1 week. Use clonidine 0.1 mg 1 tablet 2 times a day as needed for blood pressure greater than 140 systolic. Return to ER for worsening shortness of breath, chest pain, or new concerns. Coding Level of Care Code ED [employer] Manager for Dariela Poon
[2023-09-19 16:17] VITALS: BP 170/100; PULSE 74; RESP 15; O2SAT 97
--- NOTE | 2023-09-19 16:19 | CTR_ITS ---
PROCEDURE INFORMATION: Exam: CT Head Without Contrast Exam date and time: 09/19/2023 4:49 PM Age: 47 years old Clinical indication: Pain; Headache; Additional info: Headache, HTN TECHNIQUE: Imaging protocol: Computed tomography of the head without contrast. Radiation optimization: All CT scans at this facility use at least one of these dose optimization techniques: automated exposure control; mA and/or kV adjustment per patient size (includes targeted exams where dose is matched to clinical indication); or iterative reconstruction. COMPARISON: No relevant prior studies available. RADIATION DOSE METRICS: Total DLP (mGy-cm): 1040 FINDINGS: Brain: Normal. No hemorrhage. Unremarkable white matter. No mass effect. Cerebral ventricles: No ventriculomegaly. Paranasal sinuses: Visualized sinuses are unremarkable. No fluid levels. Mastoid air cells: Visualized mastoid air cells are well aerated. Bones: Unremarkable. No acute fracture. Soft tissues: Unremarkable. CT/CT head wo con* [id number] IMPRESSION: No acute intracranial abnormality.
[2023-09-19 16:28] VITALS: BP 170/100
[2023-09-19] MEDS: cloNIDine 0.1 mg Tablet 0.100000000000000006 MG PO (16:28)
[2023-09-19 16:30] VITALS: BP 151/101; PULSE 76; RESP 15; O2SAT 97
[2023-09-19 16:31] LABS: Add Urine Microscopic? NO; Charge for UA Resulting for Rev
[2023-09-19 16:35] LABS: Basophils # 0.1 10^3/uL (0.0-0.1); Basophils % 0.7 %; Eosinophils # 0.2 10^3/uL (0.0-0.8); Eosinophils % 1.8 %; Hematocrit 46.1 % (36-47); Lymphocytes # 2.5 10^3/uL (0.8-4.8); Lymphocytes % 23.4 %; Mean Corpuscular HGB Conc 34.5 g/dL (30-55); Mean Corpuscular Hemoglobin 32.2 pg (27-33); Mean Corpuscular Volume 93.3 fl (85-98); Mean Platelet Volume 9.6 fL (7.4-10.4); Monocytes # 1.1 10^3/uL (0.2-0.9); Monocytes % 10.3 %; Neutrophils # 6.65 10^3/uL (1.8-7.7); Neutrophils % 63.6 %; Nucleated Red Blood Cells % 0 %; Platelet Count 229 10^3/cmm (157-399); Red Blood Count 4.94 10^6/uL (3.85-5.65); White Blood Count 10.46 10^3/uL (3.29-11.43)
[2023-09-19 16:58] LABS: Bilirubin Urine Neg (Negative); Blood Urine Neg (Negative); Glucose Urine UA Norm (Normal); Ketones Urine Negative (Negative); Leukocyte Esterase Urine Negative (Negative); Nitrate Urine Negative (Negative); Protein Urine Neg (Negative); Urine Appearance Clear (CLEAR); Urine Color Yellow (Yellow); Urobilinogen Urine Norm (Negative); pH Urine 5 (5-7)
[2023-09-19 17:12] LABS: Alanine Aminotransferase 16 U/L (0-33); Albumin Level 4.2 g/dL (3.5-5.2); Alkaline Phosphatase 66 U/L (35-105); Anion Gap 15.5 (5-19); Aspartate Amino Transferase 20 U/L (0-32); Blood Urea Nitrogen 15 mg/dL (6-20); Calcium 9.1 mg/dL (8.5-10.5); Carbon Dioxide 27 mmol/L (22-29); Chloride 104 mmol/L (98-107); Creatinine Clr Calc Pharmacy 124.2281; Globulin 2.9 g/dL (1.3-4.6); Glomerular Filtration Rate 89.3 mL/min (90-130); Glucose 95 mg/dL (65-115); NT Pro B Type Natriuretic Pept 251 pg/mL (0-125); Osmolality Calculated 297 mOsm/kg (285-295); Potassium 3.5 mmol/L (3.5-5.1); Sodium 143 mmol/L (136-145); Total Bilirubin 0.3 mg/dL (0.15-1.2); Total Protein 7.1 g/dL (6.6-8.7)
[2023-09-19 18:00] VITALS: BP 141/98; PULSE 71; RESP 12; O2SAT 95
[2023-09-19 18:04] LABS: Troponin(5th) Baseline < 6 ng/L (0-10)
== END 2023-09-19 18:09 | disposition home or self-care (01) ==
PROVIDERS: Emergency Provider Nurse Practitioner Family; PCP Family Medicine
DX: I16.1 Hypertensive emergency (principal); Z79.01 Long term (current) use of anticoagulants; Z86.73 Personal history of transient ischemic attack (TIA), and cerebral infarction without residual deficits; M32.9 Systemic lupus erythematosus, unspecified; I10 Essential (primary) hypertension
CPT/HCPCS: 36415; 70450; 71045; 80053; 81003; 83880; 84484; 85025; 93005; 99285

== ENCOUNTER 2023-09-27 16:37 | Outpatient (CLI) | payer MEDICARE, MEDICAID, SELFPAY ==
--- NOTE | 2023-09-27 17:00 | USCV_ITS ---
Paige Romero Age: 47 Gender: F : 1975 Exam Date: 09/27/2023 16:56 Ordering Phys: Kendy Smith DO Technologist: CT [place] [facility] [place]: edema BP: / HR: Rhythm: Sinus Technical Quality: Suboptimal MEASUREMENTS (Male / Female) Normal Values FINDINGS Left Ventricle Normal left ventricular size, systolic function and wall thickness, with no regional wall motion abnormalities. Grade I/IV diastolic dysfunction (abnormal relaxation filling pattern), normal to mildly elevated filling pressures. Left ventricular ejection fraction is estimated at 65 %. Right Ventricle The right ventricle is normal in size and function. Right Atrium The right atrium is normal in size. Left Atrium The left atrium is normal in size. Mitral Valve Structurally normal mitral valve without significant stenosis or prolapse. There is no mitral regurgitation. Aortic Valve Structurally normal aortic valve without significant sclerosis or stenosis. There is no aortic regurgitation. Tricuspid Valve Structurally normal tricuspid valve without significant stenosis or regurgitation. Pulmonary artery systolic pressure is normal. Pulmonic Valve Pulmonic valve not well visualized. Pericardium Normal pericardium without effusion. Aorta Normal ascending aorta dimension. IVC The inferior vena cava appears normal. CONCLUSIONS Normal left ventricular size, systolic function and wall thickness, with no regional wall motion abnormalities. Grade I/IV diastolic dysfunction (abnormal relaxation filling pattern), normal to mildly elevated filling pressures. Left ventricular ejection fraction is estimated at 65 %. There are no prior echocardiogram studies to compare. Dr. Binh Bustos MD (Electronically Signed) Final Date: 28 September 2023 12:07 S
== END 2023-09-27 16:38 | disposition home or self-care (01) ==
PROVIDERS: PCP Family Medicine; Visit Provider Family Medicine
DX: R06.01 Orthopnea (principal); I50.30 Unspecified diastolic (congestive) heart failure
CPT/HCPCS: 93306

== ENCOUNTER 2023-10-17 14:09 | Oncology outpatient (recurring) (ONCR) | payer OTHER, MEDICAID, SELFPAY ==
[2023-10-17 14:20] VITALS: BP 141/85; PULSE 79; RESP 16; TEMP 36.4; O2SAT 95
--- NOTE | 2023-10-17 14:29 | PC.NURSE ---
Benlysta Infusion 10/17/23 Patient scheduled for Benlysta infusion per Dr. Collins. Patient answered yes to cough and shortness of breath on RHEO Infusion checklist. Patient stated these are chronic conditions that Dr. Collins is aware of. Patient stated she recently began taking Lasix, which has improved these.
[2023-10-17] MEDS: sodium chloride 0.9% 250 ML 75 ML IV (14:50)
[2023-10-17] MEDS: diphenhydrAMINE 50 mg/mL SDV 1mL 25 MG IVP (14:50)
[2023-10-17] MEDS: acetaminophen 325 mg Tablet 650 MG PO (14:50)
[2023-10-17] MEDS: methylPREDNISolone sod succ 40 mg/mL INJ IVP (14:51)
[2023-10-17] MEDS: SODIUM CHLORIDE 0.9% IV (15:12)
[2023-10-17] MEDS: BELIMUMAB IV (15:12)
[2023-10-17 16:15] VITALS: BP 149/87; PULSE 69; RESP 16; O2SAT 95
== END 2023-11-06 23:59 | disposition home or self-care (01) ==
PROVIDERS: PCP Family Medicine; Visit Provider Internal Medicine Rheumatology
DX: K57.30 Diverticulosis of large intestine without perforation or abscess without bleeding (principal)
CPT/HCPCS: 96375; 96413; J0490; J1200; J2919; J7050

== ENCOUNTER 2023-11-14 13:39 | Oncology outpatient (recurring) (ONCR) | payer OTHER, MEDICAID, SELFPAY ==
[2023-11-14 13:47] VITALS: BP 130/87; PULSE 77; RESP 16; TEMP 36.5; O2SAT 96
[2023-11-14] MEDS: sodium chloride 0.9% 250 ML 75 ML IV (14:11)
[2023-11-14] MEDS: methylPREDNISolone sod succ 40 mg/mL INJ IVP (14:13)
[2023-11-14] MEDS: acetaminophen 325 mg Tablet 650 MG PO (14:13)
[2023-11-14] MEDS: diphenhydrAMINE 50 mg/mL SDV 1mL 25 MG IVP (14:16)
[2023-11-14] MEDS: BELIMUMAB IV (15:07)
[2023-11-14] MEDS: SODIUM CHLORIDE 0.9% IV (15:07)
[2023-11-14 16:29] VITALS: BP 150/89; PULSE 71; RESP 16; TEMP 36.7; O2SAT 96
== END 2023-12-07 23:59 | disposition home or self-care (01) ==
PROVIDERS: PCP Family Medicine; Visit Provider Internal Medicine Rheumatology
DX: K57.30 Diverticulosis of large intestine without perforation or abscess without bleeding (principal); Z79.620 Long term (current) use of immunosuppressive biologic
CPT/HCPCS: 96365; 96375; J0490; J1200; J2919; J7050

== ENCOUNTER 2023-12-12 13:49 | Oncology outpatient (recurring) (ONCR) | payer OTHER, MEDICAID, SELFPAY ==
[2023-12-12 15:10] LABS: Basophils # 0.1 10^3/uL (0.0-0.1); Basophils % 1.2 %; Eosinophils # 0.3 10^3/uL (0.0-0.8); Eosinophils % 5.6 %; Lymphocytes # 1.4 10^3/uL (0.8-4.8); Lymphocytes % 26.9 %; Mean Corpuscular HGB Conc 34.3 g/dL (30-55); Mean Corpuscular Hemoglobin 31.7 pg (27-33); Mean Corpuscular Volume 92.5 fl (85-98); Mean Platelet Volume 9.6 fL (7.4-10.4); Monocytes # 0.6 10^3/uL (0.2-0.9); Monocytes % 11.6 %; Neutrophils # 2.72 10^3/uL (1.8-7.7); Neutrophils % 54.3 %; Nucleated Red Blood Cells % 0 %; Platelet Count 220 10^3/cmm (157-399); Red Blood Count 4.54 10^6/uL (3.85-5.65); Red Cell Distribution Width 12.5 % (12.1-15.1); White Blood Count 5.01 10^3/uL (3.29-11.43)
[2023-12-12] MEDS: acetaminophen 325 mg Tablet 650 MG PO (15:22)
[2023-12-12] MEDS: sodium chloride 0.9% 250 ML 75 ML IV (15:26)
[2023-12-12] MEDS: diphenhydrAMINE 50 mg/mL SDV 1mL 25 MG IVP (15:27)
[2023-12-12 15:33] LABS: Alanine Aminotransferase 18 U/L (0-33); Albumin Level 4.2 g/dL (3.5-5.2); Alkaline Phosphatase 52 U/L (35-105); Aspartate Amino Transferase 21 U/L (0-32); Globulin 2.3 g/dL (1.3-4.6); Glomerular Filtration Rate 88.9 mL/min (90-130); Total Bilirubin 0.5 mg/dL (0.15-1.2); Total Protein 6.5 g/dL (6.6-8.7)
[2023-12-12] MEDS: methylPREDNISolone sod succ 40 mg/mL INJ IVP (15:38)
[2023-12-12] MEDS: SODIUM CHLORIDE 0.9% IV (16:15)
[2023-12-12] MEDS: BELIMUMAB IV (16:15)
[2023-12-12 17:51] VITALS: BP 144/90; PULSE 81; RESP 18; TEMP 36.5; O2SAT 96
== END 2024-01-06 23:59 | disposition home or self-care (01) ==
PROVIDERS: PCP Family Medicine; Visit Provider Internal Medicine Rheumatology
DX: Z79.899 Other long term (current) drug therapy (principal); K57.31 Diverticulosis of large intestine without perforation or abscess with bleeding; M32.9 Systemic lupus erythematosus, unspecified
CPT/HCPCS: 80076; 82565; 85025; 86140; 96361; 96365; 96375; J0490; J1200; J2919; J7050

== ENCOUNTER → 2023-12-24 13:54 | Outpatient (BNVA) | payer OTHER, MEDICAID, SELFPAY | PROVIDERS: PCP Family Medicine; Visit Provider Internal Medicine Rheumatology | DX: M32.9 Systemic lupus erythematosus, unspecified (principal); D68.61 Antiphospholipid syndrome; Z79.899 Other long term (current) drug therapy; Z71.85 Encounter for immunization safety counseling; Z11.1 Encounter for screening for respiratory tuberculosis; Z11.59 Encounter for screening for other viral diseases | CPT/HCPCS: 99214 ==

== ENCOUNTER → 2023-12-30 15:57 | Outpatient (BNVA) | payer OTHER, MEDICAID, SELFPAY | PROVIDERS: PCP Family Medicine; Visit Provider Family Medicine | DX: I10 Essential (primary) hypertension (principal) | CPT/HCPCS: 80048 ==

== ENCOUNTER 2024-02-06 14:00 | Oncology outpatient (recurring) (ONCR) | payer OTHER, MEDICAID, SELFPAY ==
[2024-01-09 14:07] VITALS: BP 112/69; PULSE 86; RESP 18; TEMP 37.1; O2SAT 93
[2024-01-09] MEDS: acetaminophen 325 mg Tablet 650 MG PO (14:21)
[2024-01-09] MEDS: sodium chloride 0.9% 250 ML 75 ML IV (14:22)
[2024-01-09] MEDS: methylPREDNISolone sod succ 40 mg/mL INJ IVP (14:26)
[2024-01-09] MEDS: diphenhydrAMINE 50 mg/mL SDV 1mL 25 MG IVP (14:29)
[2024-01-09] MEDS: BELIMUMAB IV (15:01)
[2024-01-09] MEDS: SODIUM CHLORIDE 0.9% IV (15:01)
[2024-01-09 16:22] VITALS: BP 113/75; PULSE 74; TEMP 37.2; O2SAT 95
--- NOTE | 2024-02-06 13:57 | PC.NURSE ---
Pt here today for Belimumab infusion. Pt states she is having her nerves burnt in her back in exactly 2 weeks from today, 02/20/24. Unable to reach Dr. Collins or nursing staff. Notified pt it would be best to cancel today's infusion until this nurse can reach Dr. Velazquez's office. Will contact pt after Dr. Collins is spoken with.
== END 2024-02-06 23:59 | disposition home or self-care (01) ==
PROVIDERS: PCP Family Medicine; Visit Provider Internal Medicine Rheumatology
DX: Z53.9 Procedure and treatment not carried out, unspecified reason
CPT/HCPCS: 96375; 96413; J0490; J1200; J2919; J7050

== ENCOUNTER 2024-03-09 13:42 | Oncology outpatient (recurring) (ONCR) | payer OTHER, SELFPAY ==
[2024-03-09 14:28] VITALS: BP 135/80; PULSE 78; TEMP 36.8; O2SAT 97
[2024-03-09] MEDS: acetaminophen 325 mg Tablet 650 MG PO (14:43)
[2024-03-09] MEDS: methylPREDNISolone sod succ 40 mg/mL INJ IVP (14:43)
[2024-03-09] MEDS: sodium chloride 0.9% 250 ML 75 ML IV (14:43)
[2024-03-09] MEDS: diphenhydrAMINE 50 mg/mL SDV 1mL 25 MG IVP (14:49)
[2024-03-09] MEDS: SODIUM CHLORIDE 0.9% IV (15:20)
[2024-03-09] MEDS: BELIMUMAB IV (15:20)
[2024-03-09 16:32] VITALS: BP 136/83; PULSE 79; TEMP 36.5; O2SAT 97
== END 2024-04-07 23:59 | disposition home or self-care (01) ==
PROVIDERS: PCP Family Medicine; Visit Provider Internal Medicine Rheumatology
DX: K57.31 Diverticulosis of large intestine without perforation or abscess with bleeding (principal); Z79.899 Other long term (current) drug therapy
CPT/HCPCS: 96365; 96375; J0490; J1200; J2919; J7050

== ENCOUNTER 2024-03-30 13:18 | Outpatient (CLI) | payer OTHER, MEDICAID, SELFPAY ==
--- NOTE | 2024-03-30 13:21 | MM_ITS ---
WS: [id number] BILATERAL 3D TOMOSYNTHESIS DIGITAL SCREENING MAMMOGRAPHY WITH CAD CLINICAL INFORMATION: SCREENING HISTORY: Screening mammogram. No current complaints. COMPARISON: 03/25/2023 TECHNIQUE: Bilateral CC and MLO views. FINDINGS: Scattered fibroglandular densities bilaterally. No suspicious focal mass, asymmetry, calcifications, or architectural distortion. No evidence of malignancy. MM/MM [facility] tomosynthesis [id number] IMPRESSION: DENSITY: There are scattered areas of fibroglandular density. BI-RADS: 1 - Negative. FOLLOW UP: 1 Year Follow-up Recommend return to annual screening mammography.
== END 2024-03-30 13:19 | disposition home or self-care (01) ==
LOC: RAD 13:19
PROVIDERS: PCP Family Medicine; Visit Provider Family Medicine
DX: Z12.31 Encounter for screening mammogram for malignant neoplasm of breast (principal); R92.323 Mammographic fibroglandular density, bilateral breasts
CPT/HCPCS: 77063; 77067

== ENCOUNTER 2024-04-13 13:31 | Oncology outpatient (recurring) (ONCR) | payer OTHER, SELFPAY ==
[2024-04-13] MEDS: sodium chloride 0.9% 250 ML 75 ML IV (14:18)
[2024-04-13] MEDS: methylPREDNISolone sod succ 40 mg/mL INJ IVP (14:19)
[2024-04-13] MEDS: diphenhydrAMINE 50 mg/mL SDV 1mL 25 MG IVP (14:20)
[2024-04-13] MEDS: acetaminophen 325 mg Tablet 650 MG PO (14:22)
[2024-04-13 14:25] LABS: Basophils # 0.1 10^3/uL (0.0-0.1); Basophils % 1.4 %; Eosinophils # 0.3 10^3/uL (0.0-0.8); Eosinophils % 5.5 %; Hematocrit 43.2 % (36-47); Lymphocytes # 1.5 10^3/uL (0.8-4.8); Lymphocytes % 29.7 %; Mean Corpuscular HGB Conc 33.8 g/dL (30-55); Mean Corpuscular Hemoglobin 31.1 pg (27-33); Mean Corpuscular Volume 92.1 fl (85-98); Mean Platelet Volume 9.7 fL (7.4-10.4); Monocytes # 0.5 10^3/uL (0.2-0.9); Neutrophils # 2.71 10^3/uL (1.8-7.7); Neutrophils % 53.2 %; Nucleated Red Blood Cells % 0 %; Platelet Count 172 10^3/cmm (157-399); Red Blood Count 4.69 10^6/uL (3.85-5.65); Red Cell Distribution Width 12.5 % (12.1-15.1); White Blood Count 5.09 10^3/uL (3.29-11.43)
[2024-04-13 14:33] VITALS: BP 160/86; PULSE 73; RESP 17; TEMP 35.9; O2SAT 97
[2024-04-13 14:44] LABS: Alanine Aminotransferase 18 U/L (0-33); Albumin Level 4.1 g/dL (3.5-5.2); Alkaline Phosphatase 52 U/L (35-105); Aspartate Amino Transferase 23 U/L (0-32); Creatinine Clr Calc Pharmacy 140.1088; Globulin 2.6 g/dL (1.3-4.6); Glomerular Filtration Rate 106.3 mL/min (90-130); Total Bilirubin 0.4 mg/dL (0.15-1.2); Total Protein 6.7 g/dL (6.6-8.7)
[2024-04-13] MEDS: BELIMUMAB IV (14:54)
[2024-04-13] MEDS: SODIUM CHLORIDE 0.9% IV (14:54)
[2024-04-13 16:08] VITALS: BP 144/80; PULSE 80; RESP 16; O2SAT 96
== END 2024-05-08 23:59 | disposition home or self-care (01) ==
PROVIDERS: PCP Family Medicine; Visit Provider Internal Medicine Rheumatology
DX: K57.31 Diverticulosis of large intestine without perforation or abscess with bleeding (principal); Z79.899 Other long term (current) drug therapy
CPT/HCPCS: 80076; 82565; 85025; 86140; 96365; 96375; J0490; J1200; J2919; J7050

== ENCOUNTER → 2024-05-05 13:47 | Outpatient (BNVA) | payer OTHER, SELFPAY | PROVIDERS: PCP Family Medicine; Visit Provider Internal Medicine Rheumatology | DX: M32.9 Systemic lupus erythematosus, unspecified (principal); D68.61 Antiphospholipid syndrome; Z79.899 Other long term (current) drug therapy; Z71.89 Other specified counseling | CPT/HCPCS: 20610; 99214; J1010 ==

== ENCOUNTER 2024-05-11 13:23 | Oncology outpatient (recurring) (ONCR) | payer OTHER, SELFPAY ==
[2024-05-11 14:59] VITALS: BP 138/91; PULSE 74; RESP 16; TEMP 36.6; O2SAT 99
[2024-05-11] MEDS: sodium chloride 0.9% 250 ML 75 ML IV (15:33)
[2024-05-11] MEDS: acetaminophen 325 mg Tablet 650 MG PO (15:34)
[2024-05-11] MEDS: diphenhydrAMINE 50 mg/mL SDV 1mL 25 MG IVP (15:37)
[2024-05-11] MEDS: methylPREDNISolone sod succ 40 mg/mL INJ IVP (15:41)
[2024-05-11] MEDS: SODIUM CHLORIDE 0.9% IV (15:59)
[2024-05-11] MEDS: BELIMUMAB IV (15:59)
[2024-05-11 17:15] VITALS: BP 158/75; PULSE 74; RESP 16; TEMP 36.4; O2SAT 95
== END 2024-06-05 23:59 | disposition home or self-care (01) ==
PROVIDERS: PCP Family Medicine; Visit Provider Internal Medicine Rheumatology
DX: K57.31 Diverticulosis of large intestine without perforation or abscess with bleeding (principal); Z79.899 Other long term (current) drug therapy
CPT/HCPCS: 96365; 96367; J0490; J1200; J2919; J7050

== ENCOUNTER → 2024-06-10 12:44 | Outpatient (BNVA) | payer OTHER, SELFPAY | PROVIDERS: PCP Family Medicine; Visit Provider Nurse Practitioner Family | DX: M32.10 Systemic lupus erythematosus, organ or system involvement unspecified (principal); Z92.25 Personal history of immunosuppression therapy; L71.8 Other rosacea; L64.8 Other androgenic alopecia; L85.3 Xerosis cutis; L57.8 Other skin changes due to chronic exposure to nonionizing radiation; L81.4 Other melanin hyperpigmentation; L82.1 Other seborrheic keratosis; B07.8 Other viral warts; Z78.9 Other specified health status; L29.89 Other pruritus; L57.0 Actinic keratosis | CPT/HCPCS: 17000; 17110; 99214 ==

== ENCOUNTER 2024-06-11 13:08 | Oncology outpatient (recurring) (ONCR) | payer OTHER, SELFPAY ==
[2024-06-11] MEDS: methylPREDNISolone sod succ 40 mg/mL INJ IVP (13:28)
[2024-06-11] MEDS: sodium chloride 0.9% 250 ML 75 ML IV (13:58)
[2024-06-11] MEDS: acetaminophen 325 mg Tablet 650 MG PO (13:58)
[2024-06-11] MEDS: diphenhydrAMINE 50 mg/mL SDV 1mL 25 MG IVP (14:01)
[2024-06-11 14:34] LABS: Basophils % 0.8 %; Eosinophils # 0.1 10^3/uL (0.0-0.8); Eosinophils % 2.9 %; Hematocrit 42.1 % (36-47); Lymphocytes # 1.4 10^3/uL (0.8-4.8); Lymphocytes % 27.5 %; Mean Corpuscular HGB Conc 34.2 g/dL (30-55); Mean Corpuscular Hemoglobin 31.6 pg (27-33); Mean Corpuscular Volume 92.5 fl (85-98); Mean Platelet Volume 9.5 fL (7.4-10.4); Monocytes # 0.5 10^3/uL (0.2-0.9); Monocytes % 9.4 %; Neutrophils # 2.91 10^3/uL (1.8-7.7); Neutrophils % 59.2 %; Nucleated Red Blood Cells % 0 %; Platelet Count 191 10^3/cmm (157-399); Red Blood Count 4.55 10^6/uL (3.85-5.65); Red Cell Distribution Width 12.1 % (12.1-15.1); White Blood Count 4.91 10^3/uL (3.29-11.43)
[2024-06-11] MEDS: BELIMUMAB IV (14:47)
[2024-06-11] MEDS: SODIUM CHLORIDE 0.9% IV (14:47)
[2024-06-11 14:52] LABS: Alanine Aminotransferase 14 U/L (0-33); Alkaline Phosphatase 55 U/L (35-105); Aspartate Amino Transferase 21 U/L (0-32); Globulin 2.8 g/dL (1.3-4.6); Glomerular Filtration Rate 88.9 mL/min (90-130); Total Bilirubin 0.3 mg/dL (0.15-1.2); Total Protein 6.8 g/dL (6.6-8.7)
[2024-06-11 16:18] VITALS: BP 136/94; PULSE 83; RESP 17; TEMP 36.6; O2SAT 98
== END 2024-07-06 23:59 | disposition home or self-care (01) ==
PROVIDERS: PCP Family Medicine; Visit Provider Internal Medicine Rheumatology
DX: K57.31 Diverticulosis of large intestine without perforation or abscess with bleeding (principal); Z79.899 Other long term (current) drug therapy
CPT/HCPCS: 80076; 82565; 85025; 86140; 96375; 96413; J0490; J1200; J2919; J7050; J9999

== ENCOUNTER 2024-07-09 11:50 | Oncology outpatient (recurring) (ONCR) | payer OTHER, SELFPAY ==
[2024-07-09] MEDS: sodium chloride 0.9% 250 ML 75 ML IV (12:39)
[2024-07-09] MEDS: acetaminophen 325 mg Tablet 650 MG PO (12:40)
[2024-07-09] MEDS: methylPREDNISolone sod succ 40 mg/mL INJ IVP (12:43)
[2024-07-09] MEDS: diphenhydrAMINE 50 mg/mL SDV 1mL 25 MG IVP (12:48)
[2024-07-09] MEDS: SODIUM CHLORIDE 0.9% IV (13:24)
[2024-07-09] MEDS: BELIMUMAB IV (13:24)
[2024-07-09 14:54] VITALS: BP 138/81; PULSE 68; RESP 18; TEMP 36.7; O2SAT 96
== END 2024-08-05 23:59 | disposition home or self-care (01) ==
PROVIDERS: PCP Family Medicine; Visit Provider Internal Medicine Rheumatology
DX: K57.31 Diverticulosis of large intestine without perforation or abscess with bleeding (principal); Z79.899 Other long term (current) drug therapy
CPT/HCPCS: 96375; 96413; J0490; J1200; J2919; J7050; J9999

== ENCOUNTER → 2024-08-11 14:28 | Outpatient (BNVA) | payer OTHER, SELFPAY | PROVIDERS: PCP Family Medicine; Visit Provider Internal Medicine Rheumatology | DX: M32.9 Systemic lupus erythematosus, unspecified (principal); D68.61 Antiphospholipid syndrome; Z79.899 Other long term (current) drug therapy; Z71.89 Other specified counseling; M19.90 Unspecified osteoarthritis, unspecified site | CPT/HCPCS: 99214 ==

== ENCOUNTER → 2024-08-17 14:27 | Outpatient (BNVA) | payer OTHER, SELFPAY | PROVIDERS: PCP Family Medicine; Visit Provider Internal Medicine Rheumatology | DX: M25.511 Pain in right shoulder (principal) | CPT/HCPCS: 20610; J1010; J9999 ==

== ENCOUNTER 2024-09-03 12:00 | Oncology outpatient (recurring) (ONCR) | payer OTHER, SELFPAY ==
[2024-08-06] MEDS: sodium chloride 0.9% 250 ML 75 ML IV (13:20)
[2024-08-06] MEDS: acetaminophen 325 mg Tablet 650 MG PO (13:21)
[2024-08-06] MEDS: diphenhydrAMINE 50 mg/mL SDV 1mL 25 MG IVP (13:22)
[2024-08-06] MEDS: methylPREDNISolone sod succ 40 mg/mL INJ IVP (13:23)
[2024-08-06 13:35] VITALS: BP 116/78; PULSE 73; RESP 18; TEMP 36.8; O2SAT 94
[2024-08-06] MEDS: BELIMUMAB IV (14:05)
[2024-08-06] MEDS: SODIUM CHLORIDE 0.9% IV (14:05)
[2024-08-06 15:21] VITALS: BP 112/71; PULSE 77; RESP 16; TEMP 36.4; O2SAT 94
[2024-09-03 13:07] VITALS: BP 122/83; PULSE 72; RESP 18; TEMP 36.6; O2SAT 98
[2024-09-03] MEDS: diphenhydrAMINE 50 mg/mL SDV 1mL 25 MG IVP (13:12)
[2024-09-03] MEDS: acetaminophen 325 mg Tablet 650 MG PO (13:12)
[2024-09-03] MEDS: sodium chloride 0.9% 250 ML 75 ML IV (13:12)
[2024-09-03] MEDS: methylPREDNISolone sod succ 40 mg/mL INJ IVP (13:20)
[2024-09-03 13:24] LABS: Basophils # 0.1 10^3/uL (0.0-0.1); Basophils % 0.8 %; Eosinophils # 0.1 10^3/uL (0.0-0.8); Hematocrit 40.1 % (36-47); Lymphocytes # 1.1 10^3/uL (0.8-4.8); Lymphocytes % 17.8 %; Mean Corpuscular HGB Conc 34.7 g/dL (30-55); Mean Corpuscular Volume 92.4 fl (85-98); Mean Platelet Volume 9.5 fL (7.4-10.4); Monocytes # 0.4 10^3/uL (0.2-0.9); Neutrophils # 4.42 10^3/uL (1.8-7.7); Neutrophils % 72.1 %; Nucleated Red Blood Cells % 0 %; Platelet Count 190 10^3/cmm (157-399); Red Blood Count 4.34 10^6/uL (3.85-5.65); Red Cell Distribution Width 12.6 % (12.1-15.1); White Blood Count 6.13 10^3/uL (3.29-11.43)
[2024-09-03 13:45] LABS: Alanine Aminotransferase 14 U/L (0-33); Alkaline Phosphatase 58 U/L (35-105); Aspartate Amino Transferase 20 U/L (0-32); Globulin 2.6 g/dL (1.3-4.6); Glomerular Filtration Rate 66.5 mL/min (90-130); Total Bilirubin 0.4 mg/dL (0.15-1.2); Total Protein 6.6 g/dL (6.6-8.7)
[2024-09-03] MEDS: SODIUM CHLORIDE 0.9% IV (14:26)
[2024-09-03] MEDS: BELIMUMAB IV (14:26)
== END 2024-09-05 23:59 | disposition home or self-care (01) ==
PROVIDERS: PCP Family Medicine; Visit Provider Internal Medicine Rheumatology
DX: Z53.9 Procedure and treatment not carried out, unspecified reason (principal); K57.30 Diverticulosis of large intestine without perforation or abscess without bleeding; M32.9 Systemic lupus erythematosus, unspecified; Z79.899 Other long term (current) drug therapy
CPT/HCPCS: 80076; 82565; 85025; 86140; 96365; 96375; 96413; J0490; J1200; J2919; J7050; J9999

== ENCOUNTER → 2024-09-08 15:39 | Outpatient (BNVA) | payer OTHER, SELFPAY | PROVIDERS: PCP Family Medicine; Visit Provider Family Medicine | DX: E78.5 Hyperlipidemia, unspecified (principal) | CPT/HCPCS: 80053; 80061; 85610 ==

== ENCOUNTER 2024-10-01 12:03 | Oncology outpatient (recurring) (ONCR) | payer OTHER, SELFPAY ==
[2024-10-01] MEDS: sodium chloride 0.9% 250 ML 75 ML IV (12:58)
[2024-10-01] MEDS: acetaminophen 325 mg Tablet 650 MG PO (13:00)
[2024-10-01] MEDS: methylPREDNISolone sod succ 40 mg/mL INJ IVP (13:01)
[2024-10-01 13:10] VITALS: BP 104/69; PULSE 77; RESP 17; TEMP 36.8; O2SAT 96
[2024-10-01] MEDS: SODIUM CHLORIDE 0.9% IV (13:45)
[2024-10-01] MEDS: BELIMUMAB IV (13:45)
[2024-10-01 15:19] VITALS: BP 115/82; PULSE 77; RESP 17; TEMP 36.3; O2SAT 96
== END 2024-10-05 23:59 | disposition home or self-care (01) ==
PROVIDERS: PCP Family Medicine; Visit Provider Internal Medicine Rheumatology
DX: K57.31 Diverticulosis of large intestine without perforation or abscess with bleeding (principal); Z79.899 Other long term (current) drug therapy
CPT/HCPCS: 96375; 96413; J0490; J2919; J7050; J9999

== ENCOUNTER 2024-10-29 11:46 | Oncology outpatient (recurring) (ONCR) | payer OTHER, SELFPAY ==
[2024-10-29 12:42] VITALS: BP 105/65; PULSE 77; RESP 17; TEMP 36.6; O2SAT 98
[2024-10-29] MEDS: methylPREDNISolone sod succ 40 mg/mL INJ IVP (12:52)
[2024-10-29] MEDS: SODIUM CHLORIDE 0.9% IV (13:25)
[2024-10-29] MEDS: BELIMUMAB IV (13:25)
[2024-10-29 14:45] VITALS: BP 123/81; PULSE 75; RESP 16; TEMP 36.9; O2SAT 99
== END 2024-11-05 23:59 | disposition home or self-care (01) ==
PROVIDERS: PCP Family Medicine; Visit Provider Internal Medicine Rheumatology
DX: K57.31 Diverticulosis of large intestine without perforation or abscess with bleeding (principal); Z79.899 Other long term (current) drug therapy
CPT/HCPCS: 96375; 96413; J0490; J2919; J7050; J9999

== ENCOUNTER → 2024-11-03 08:04 | Outpatient (BNVA) | payer OTHER, SELFPAY | PROVIDERS: PCP Family Medicine; Visit Provider Student in an Organized Health Care Education/Training Program | DX: M75.41 Impingement syndrome of right shoulder (principal) | CPT/HCPCS: 73030; 99203 ==

== ENCOUNTER 2024-11-06 14:03 | Outpatient (CLI) | payer OTHER, SELFPAY ==
--- NOTE | 2024-11-06 14:30 | MR_ITS ---
WS: [id number] MRI RIGHT SHOULDER HISTORY: rotator cuff impingement COMPARISON: None available. TECHNIQUE: Multiplanar sequences of the shoulder joint are submitted. Severe AC joint arthritis. 4.5 mm osteophyte from the distal inferior clavicle contacts and deforms myotendinous portion of the supraspinatus. Narrowing of the AC joint. There is a small amount of edema through the AC joint. Small amount of fluid in the subacromial subdeltoid bursa. No significant impingement. No os acromion. Biceps tendon is subluxed from the bicipital groove. Mild narrowing of the glenohumeral joint. Several subchondral cystic changes in the glenoid with loss of cartilage. Mild osteophytic ridging around the humeral head. Small hypertrophic osteophytes near the lesser tuberosity with mild contact on the biceps tendon. No rotator cuff muscle atrophy. No tendon tears are identified. There is mild tendinopathy distally. Mild fraying along the articular and bursal surface of the supraspinatus tendon. Seen best on the axial images is a medially dislocated biceps tendon along with tendinopathy of the biceps tendon. This is typically seen with the subscapularis tendon tear. Distal subscapularis tendon not identified as an intact hypointense structure. High-grade if not complete tear but no retraction of the distal subscapularis tendon. Infraspinatus tendon is intact. Abnormal contour of the posterior glenoid labral junction. Although there is no marrow edema suspect there may be a prior injury with avulsion of a small portion of the glenoid. There is a slightly globular appearance of the posterior labrum. MR/MR shoulder RT wo con* [id number] IMPRESSION: 1. Severe AC joint arthritis. 4.5 mm osteophyte from the distal clavicle encro aches upon and deforms the myotendinous portion of the supraspinatus. 2. Subluxation biceps tendon from the bicipital groove. 3. Biceps tendon is dislocated medial to the subscapularis tendon. This is see n with subscapularis tendon tears. There is loss of the normal signal in the di stal subscapularis tendon through which the biceps tendon has dislocated. 4. Tendinopathy in the distal supraspinatus tendon but no tear. 5. Abnormal contour of the posterior glenoid labral junction. Suspect there ma gee be an old avulsion from the glenoid. The adjacent labrum is normal signal but globular.
== END 2024-11-06 14:04 | disposition home or self-care (01) ==
PROVIDERS: PCP Family Medicine; Visit Provider Student in an Organized Health Care Education/Training Program
DX: M25.511 Pain in right shoulder (principal)
CPT/HCPCS: 73221

== ENCOUNTER → 2024-12-17 10:01 | Outpatient (BNVA) | payer OTHER, SELFPAY | PROVIDERS: PCP Family Medicine; Visit Provider Nurse Practitioner Family | DX: L64.8 Other androgenic alopecia (principal); M32.10 Systemic lupus erythematosus, organ or system involvement unspecified; Z92.25 Personal history of immunosuppression therapy; L68.0 Hirsutism; L71.8 Other rosacea; L82.1 Other seborrheic keratosis; D18.01 Hemangioma of skin and subcutaneous tissue; L57.8 Other skin changes due to chronic exposure to nonionizing radiation; L81.4 Other melanin hyperpigmentation | CPT/HCPCS: 99214 ==

== ENCOUNTER → 2024-12-22 10:48 | Outpatient (BNVA) | payer OTHER, SELFPAY | PROVIDERS: PCP Family Medicine; Visit Provider Internal Medicine Rheumatology | DX: M32.9 Systemic lupus erythematosus, unspecified (principal); D68.61 Antiphospholipid syndrome; Z79.899 Other long term (current) drug therapy; Z71.85 Encounter for immunization safety counseling; Z86.718 Personal history of other venous thrombosis and embolism; M25.562 Pain in left knee; G89.29 Other chronic pain | CPT/HCPCS: 99214 ==

== ENCOUNTER 2025-01-05 10:43 | Oncology outpatient (recurring) (ONCR) | payer OTHER, SELFPAY ==
[2024-12-08] MEDS: methylPREDNISolone sod succ 40 mg/mL INJ IVP (09:12)
[2024-12-08 09:21] LABS: Hematocrit 41.2 % (36-47); Hemoglobin 14.50 g/dL (11.27-16.99); Mean Corpuscular HGB Conc 35.2 g/dL (30-55); Mean Corpuscular Hemoglobin 32.2 pg (27-33); Mean Corpuscular Volume 91.6 fl (85-98); Nucleated Red Blood Cells % 0 %; Platelet Count 180 10^3/cmm (157-399); Red Blood Count 4.50 10^6/uL (3.85-5.65); White Blood Count 5.58 10^3/uL (3.29-11.43)
[2024-12-08] MEDS: SODIUM CHLORIDE 0.9% IV (09:38)
[2024-12-08] MEDS: BELIMUMAB IV (09:38)
[2024-12-08 09:45] LABS: Alanine Aminotransferase 34 U/L (0-33); Albumin Level 4.3 g/dL (3.5-5.2); Alkaline Phosphatase 58 U/L (35-105); Aspartate Amino Transferase 25 U/L (0-32); Blood Urea Nitrogen 18 mg/dL (6-20); Calcium 9.4 mg/dL (8.5-10.5); Carbon Dioxide 27 mmol/L (22-29); Chloride 103 mmol/L (98-107); Creatinine Clr Calc Pharmacy 105.1317; Globulin 2.9 g/dL (1.3-4.6); Glucose 106 mg/dL (65-115); Osmolality Calculated 292 mOsm/kg (285-295); Sodium 140 mmol/L (136-145); Total Protein 7.2 g/dL (6.6-8.7)
[2024-12-08 09:48] LABS: Anion Gap 14.3 (5-19); Potassium 4.3 mmol/L (3.5-5.1)
[2025-01-05] MEDS: methylPREDNISolone sod succ 40 mg/mL INJ IVP (11:17)
[2025-01-05 11:35] VITALS: BP 108/62; PULSE 78; RESP 17; TEMP 36.8; O2SAT 96
[2025-01-05] MEDS: SODIUM CHLORIDE 0.9% IV (11:53)
[2025-01-05] MEDS: BELIMUMAB IV (11:53)
[2025-01-05 13:10] VITALS: BP 124/78; PULSE 74; RESP 17; TEMP 36.6; O2SAT 97
== END 2025-01-05 23:59 | disposition home or self-care (01) ==
PROVIDERS: PCP Family Medicine; Visit Provider Internal Medicine Rheumatology
DX: K57.31 Diverticulosis of large intestine without perforation or abscess with bleeding (principal); Z79.899 Other long term (current) drug therapy
CPT/HCPCS: 80053; 85025; 86140; 96375; 96413; J0490; J2919; J7050; J9999

== ENCOUNTER → 2025-01-06 08:48 | Outpatient (BNVA) | payer OTHER, SELFPAY | PROVIDERS: PCP Family Medicine; Visit Provider Student in an Organized Health Care Education/Training Program | DX: M19.011 Primary osteoarthritis, right shoulder (principal); M75.41 Impingement syndrome of right shoulder; S43.001A Unspecified subluxation of right shoulder joint, initial encounter; S46.811A Strain of other muscles, fascia and tendons at shoulder and upper arm level, right arm, initial encounter; X58.XXXA Exposure to other specified factors, initial encounter | CPT/HCPCS: 99214 ==

== ENCOUNTER → 2025-01-29 13:30 | Outpatient (BNVA) | payer OTHER, SELFPAY | PROVIDERS: PCP Family Medicine; Visit Provider Family Medicine | DX: D68.61 Antiphospholipid syndrome (principal) | CPT/HCPCS: 85610 ==

== ENCOUNTER 2025-02-11 10:37 | Day surgery (SDC) | payer OTHER, SELFPAY ==
[2025-02-11] VITALS (16 sets, daily range): BP systolic 117–172; BP diastolic 72–100; PULSE 5–85; RESP 16–26; TEMP 36.1–36.8; O2SAT 89–95; BMI 46.0
--- NOTE | 2025-02-11 10:50 | W.PM.OPSFHP ---
Same Day Surgery H&P Indication for Procedure/HPI DATE OF PROCEDURE: February 11, 2025 CHIEF COMPLAINT/INDICATIONFOR SURGICAL PROCEDURE: Right shoulder AC joint arthritis, subacromial impingement, partial subscapularis tendon tear, bicep tendon tendinitis/subluxation PREOP DIAGNOSIS: Right shoulder AC joint arthritis, subacromial impingement, partial subscap PLANNED PROCEDURE: Operation Date: 02/11/25 13:20 Proposed Procedures p Shoulder Diagnostic and Surgical Arthroscopy(Right) - Shantanu Leal, DO s Acromioclavicular (AC) Joint Resection(Right) - Shantanu Leal, DO s Subacromial Decompression(Right) - Shantanu Leal, DO s POSSIBLE Rotator Cuff Debridement vs. Repair(Right) - Shantanu Leal, DO s POSSIBLE Biceps Tenotomy vs. Tenodesis(Right) - Shantanu Leal, DO Medications/Allergies* Home Medications ?Medication ?Instructions ?Recorded ?Confirmed ?Type belimumab 120 mg intravenous 120 mg IV .QMONTH 01/16/22 02/10/25 History solution (Benlysta) acetaminophen 500 mg capsule 1,000 mg PO BID 04/30/23 02/10/25 History pantoprazole 40 mg tablet,delayed 40 mg PO DAILY 12/22/24 02/10/25 History release dicyclomine 10 mg capsule 10 mg PO DAILY 02/10/25 02/10/25 History lisinopril 40 mg tablet 40 mg PO QPM 02/10/25 02/10/25 History prednisone 20 mg tablet 20 mg PO DIRECTED PRN joint 02/10/25 02/10/25 History pain flare sertraline 100 mg tablet 100 mg PO BID 02/10/25 02/10/25 History sumatriptan succinate 100 mg 100 mg PO DIRECTED 02/10/25 02/10/25 History tablet (Imitrex) trazodone 100 mg tablet 100 mg PO QPM 02/10/25 02/10/25 History warfarin 6 mg tablet 6 mg PO DAILY 02/10/25 02/10/25 History Allergies/Adverse Reactions Allergy/AdvReac Type Severity Reaction Status Date / Time Sulfa (Sulfonamide Allergy Unknown Verified 02/11/25 10:41 Antibiotics) sulfasalazine AdvReac GI adverse Verified 02/11/25 10:41 reactions Pertinent History/Comorbid Conditions* Medical History (Updated 01/29/25 @ 13:51 by Kendy Smith DO) Right shoulder pain Chronic back pain Osteoarthritis History of diverticulitis TIA (transient ischemic attack) left Bursitis Sleep apnea Immunization counseling High risk medication use Primary antiphospholipid syndrome SLE (systemic lupus erythematosus related syndrome) DVT (deep venous thrombosis) Essential hypertension Acid reflux Insomnia disorder Prediabetes Lupus SLE Binge eating disorder Generalized anxiety disorder Major depressive disorder, recurrent severe without psychotic features Surgical History (Updated 11/07/21 @ 13:15 by Wisam Coronel DO) History of repair of ACL Hx of carpal tunnel repair bilateral History of esophagogastroduodenoscopy (EGD) History of endometrial ablation Hx of arthroscopy of knee left knee Family History (Updated 12/10/19 @ 09:26 by Lucie Davila RN) Palpitations Diabetes Tachycardia Social History Smoking and tobacco/nicotine status: never used tobacco/nicotine Alcohol intake: never Substance/Drug Use: never Pertinent Exam Findings alert, oriented x 3, operative site marked and procedure specific exam findings Please refer to anesthesia preoperative valuation for heart and lung findings Please refer to detailed orthopedic examination on 01/06/2025 listed below: Right Shoulder Exam: -Normal Cervical spine ROM -Negative Spurling's -Full active and passive ROM -Pain with Yokasta's but good strength -5/5 strength ER and IR -Positive Hawkin's impingement -Positive Nehalem's -Positive Speed's -Positive crossover arm Neer's test -TTP over AC joint and anterior, lateral, posterior shoulder -TTP upper trapezius Recommendations Risks and benefits of procedure reviewed and Patient/family agree to proceed Surgery/Procedure today Other Plans: Patient is here today to proceed to the OR for right shoulder diagnostic and surgical arthroscopy with acromioclavicular joint resection, subacromial decompression, possible rotator cuff debridmement versus repair, possible biceps tenotomy versus tenodesis. Patient understands the ins outs procedure the risk benefits complication alternatives surgical nonsurgical treatment options. Understanding risk of surgery patient like to proceed with surgical invention. All questions answered time. She has not taken her Benlysta since December and will hold until 2 weeks after the procedure. Also patient will get a recheck on her INR this morning as she is down to Lovenox to Coumadin bridge. Patient once again understands the ins outs procedure risk benefits complication alternatives surgery and elects proceed with surgical invention she is been optimized to the preoperative clinic. All questions answered. Patient is ready to proceed with surgical intervention. Coding Level of Care Code Acute Code for Dariela Poon
--- NOTE | 2025-02-11 10:55 | ANES.PREANE2 ---
Pre-Anesthetic Assessment Height/Weight: Height 5 ft 3 in Preop Diagnosis: Right shoulder AC joint arthritis, subacromial impingement, partial subscap Operation Date: 02/11/25 13:20 Proposed Procedures p Shoulder Diagnostic and Surgical Arthroscopy(Right) - Shantanu Leal DO s Acromioclavicular (AC) Joint Resection(Right) - Shantanu Leal DO s Subacromial Decompression(Right) - Shantanu Leal DO s POSSIBLE Rotator Cuff Debridement vs. Repair(Right) - Shantanu Leal DO s POSSIBLE Biceps Tenotomy vs. Tenodesis(Right) - Shantanu Leal DO Was Beta Darlin taken within 24 hours: N/A Was Clonidine taken within 24 hours: N/A Social No alcohol and No tobacco Exam alert, oriented x 3, clear to auscultation bilaterally and regular rate & rhythm Airway Submandibular: within normal limits Cervical ROM: within normal limits Mallampati: Class III Dentition: full Anesthetic Plan ASA status: 3 Anesthesia: General Other: No prior issues with anesthesia NPO since yesterday evening History of hypertension on hydrochlorothiazide, lisinopril and spironolactone History of phospholipid antibody syndrome. She has been on Coumadin for 25 years. Last INR was 2.2 last week. Will recheck this a.m. as she has been bridged with [facility] History of JOELLEN GERD Patient has lupus on immunosuppressants INR pending Plan for GETA with preop nerve block Medications/Allergies Home Medications ?Medication ?Instructions ?Recorded ?Confirmed ?Last Taken ?Type C- PAP AND SUPPLIES #1 ea 01/09/22 01/29/25 Unknown Rx belimumab 120 mg intravenous 120 mg IV .QMONTH 01/16/22 02/10/25 01/05/25 History solution (Benlysta) Hinge Knee Brace #1 ea 08/15/22 01/29/25 Unknown Rx acetaminophen 500 mg capsule 1,000 mg PO BID 04/30/23 02/10/25 02/10/25 History spironolactone 50 mg tablet 50 mg PO DAILY #90 tabs 06/29/24 02/10/25 02/10/25 Rx sucralfate 100 mg/mL oral 10 ml PO BID 30 days #600 mL 09/14/24 02/10/25 Unknown Rx suspension (Carafate) bupropion HCl 300 mg 24 hr tablet, 300 mg PO QAM #90 tabs 10/30/24 02/10/25 02/10/25 Rx extended release (Wellbutrin XL) azathioprine 50 mg tablet 100 mg (2 x 50 mg) PO BID #120 tabs 12/22/24 02/10/25 02/05/25 Rx hydroxychloroquine 200 mg tablet 200 mg PO BID #180 tabs 12/22/24 02/10/25 02/05/25 Rx pantoprazole 40 mg tablet,delayed 40 mg PO DAILY 12/22/24 02/10/25 02/10/25 History release prednisone 5 mg tablet 5 mg PO DAILY #90 tabs 12/22/24 02/10/25 02/10/25 Rx hydrochlorothiazide 12.5 mg tablet 12.5 mg PO DAILY #90 tabs 12/30/24 02/10/25 02/10/25 Rx hydrocodone 5 mg-acetaminophen 325 1 tab PO BID PRN pain 30 days #60 01/26/25 02/10/25 02/09/25 Rx mg tablet tabs enoxaparin 120 mg/0.8 mL 120 mg (0.8 mL) SUBCUT Q12H #16 mL 01/29/25 02/10/25 02/10/25 Rx subcutaneous syringe (Lovenox) dicyclomine 10 mg capsule 10 mg PO DAILY 02/10/25 02/10/25 02/10/25 History lisinopril 40 mg tablet 40 mg PO QPM 02/10/25 02/10/25 02/09/25 History prednisone 20 mg tablet 20 mg PO DIRECTED PRN joint 02/10/25 02/10/25 02/05/25 History pain flare sertraline 100 mg tablet 100 mg PO BID 02/10/25 02/10/25 02/10/25 History sumatriptan succinate 100 mg 100 mg PO DIRECTED 02/10/25 02/10/25 02/04/25 History tablet (Imitrex) trazodone 100 mg tablet 100 mg PO QPM 02/10/25 02/10/25 02/09/25 History warfarin 6 mg tablet 6 mg PO DAILY 02/10/25 02/10/25 02/06/25 History Allergies Allergy/AdvReac Type Severity Reaction Status Date / Time Sulfa (Sulfonamide Allergy Unknown Verified 02/11/25 10:41 Antibiotics) sulfasalazine AdvReac GI adverse Verified 02/11/25 10:41 reactions [facility] Anesthesia Medical History (Updated 01/29/25 @ 13:51 by Kendy Smith DO) Right shoulder pain Chronic back pain Osteoarthritis History of diverticulitis TIA (transient ischemic attack) left Bursitis Sleep apnea Immunization counseling High risk medication use Primary antiphospholipid syndrome SLE (systemic lupus erythematosus related syndrome) DVT (deep venous thrombosis) Essential hypertension Acid reflux Insomnia disorder Prediabetes Lupus SLE Binge eating disorder Generalized anxiety disorder Major depressive disorder, recurrent severe without psychotic features Surgical History History of repair of ACL Hx of carpal tunnel repair bilateral History of esophagogastroduodenoscopy (EGD) History of endometrial ablation Hx of arthroscopy of knee left knee Family History Other Diabetes Palpitations Tachycardia Social History Smoking and tobacco/nicotine status: never used tobacco/nicotine Alcohol intake: never Substance/Drug Use: never Data Anesthesia Cardiac Studies: Echocardiogram 09/27/23 Holter Monitor 12/08/19
[2025-02-11] MEDS: acetaminophen 1,000 MG/100 ML PIGGYBACK 400 MG IV (11:24)
[2025-02-11 11:37] LABS: INR 1.01 (0.8-1.2); Prothrombin Time 14.00 SECONDS (12.1-14.9)
[2025-02-11 11:41] LABS: Blood Urea Nitrogen 10 mg/dL (6-20); Calcium 9.0 mg/dL (8.5-10.5); Carbon Dioxide 26 mmol/L (22-29); Chloride 106 mmol/L (98-107); Creatinine Clr Calc Pharmacy 119.3242; Glucose 104 mg/dL (65-115); Osmolality Calculated 293 mOsm/kg (285-295); Sodium 142 mmol/L (136-145)
--- NOTE | 2025-02-11 11:54 | SUR.PREOP ---
1145-Timeout was completed in preop for interescalene block patient was connected to monitors by RN and tolerated procedure well.
[2025-02-11] MEDS: ceFAZolin 2,000 MG in sodium chloride 0.9% (plus) 50 ML 100 MG IV (12:00)
--- NOTE | 2025-02-11 12:00 | ANES.PROC ---
Anesthesia Procedures Procedure/Date: 02/11/25 Nerve Block ^: Nerve Block 1: Main Anesthesia: other (100 mcg fentanyl and 2 mg Versed) Time Out Performed: Yes Consent: requested by attending/covering physician and from patient Laterality: Right Nerve block location: interscalene Anesthesia monitors applied: pulse oximetry, EKG, BP cuff and oxygen Nerve block position: supine Anesthetic Used: ropivicaine 0.5% Amount of anesthesia used (mL): 30 Ultrasound used to: recognize landmarks Nerve Stimulator Used?: Yes Interscalene/Femoral BLK: other needle (pjunk 4inch) Injection: neg aspiration of heme Patient Tolerated Procedure: well Complications: none Additional Comments: Decadron 4 mg added to block
[2025-02-11 12:02] LABS: Anion Gap 14.3 (5-19); Potassium 4.3 mmol/L (3.5-5.1)
--- NOTE | 2025-02-11 13:36 | P.BOP_ITS ---
Date of Procedure: 02/11/2025 Surgeon: Shantanu Leal DO Kineseologist(s): Killian Leal PA-C Procedure(s) performed: Right shoulder diagnostic and surgical arthroscopy with subscapularis tendon repair Right shoulder diagnostic and surgical arthroscopy with biceps tenodesis Right shoulder diagnostic and surgical arthroscopy with labral debridement Right shoulder diagnostic and surgical arthroscopy with subacromial decompression (bursectomy/acromioplasty) Right shoulder diagnostic and surgical arthroscopy with AC joint resection (distal clavicle excision) Right shoulder diagnostic and surgical arthroscopy with rotator cuff debridement Right shoulder diagnostic and surgical arthroscopy with loose body removal Findings of the procedure(s): Underwent procedure as planned without issues or complications taken recovery stable condition with sling on in place Estimated blood loss: 15 mL Specimen(s) removed: Loose body removed but not sent for specimen Post-operative diagnosis: Right shoulder subscapularis tendon tear, biceps tendinitis/tearing and unstable bicep anchor, labral fraying, subacromial impingement, AC joint arthritis, partial rotator cuff tearing, loose body
--- NOTE | 2025-02-11 13:40 | P.OP_ITS ---
Operative Report Date of procedure: February 11, 2025 Surgeon: Shantanu Leal DO [employer] Garage Mechanic: Killian Leal PA-C: PA was necessary for assistance in this case with shoulder positioning to execute the procedure, assistance with instrumentation, as well as implant fixation when necessary, assist with wound closure and dressing application. Procedure: Preoperative diagnosis: Right shoulder AC joint arthritis, subacromial impingement, partial subscapularis tendon tear, bicep tendon tendinitis/subluxation Post-op diagnosis: Right shoulder subscapularis tendon tear, biceps tendinitis/tearing and unstable bicep anchor, labral fraying, subacromial impingement, AC joint arthritis, partial rotator cuff tearing, loose body Procedure done: Right shoulder diagnostic and surgical arthroscopy with subscapularis tendon repair Right shoulder diagnostic and surgical arthroscopy with biceps tenodesis Right shoulder diagnostic and surgical arthroscopy with labral debridement Right shoulder diagnostic and surgical arthroscopy with subacromial decompression (bursectomy/acromioplasty) Right shoulder diagnostic and surgical arthroscopy with AC joint resection (distal clavicle excision) Right shoulder diagnostic and surgical arthroscopy with rotator cuff debridement Right shoulder diagnostic and surgical arthroscopy with loose body removal Surgeon: Shantanu Leal DO Estimated blood loss: 15mL IV fluids: See anesthesia record Implants: Arthrex 4.75 bicep tenodesis loop and tack Arthrex kit Complications: None Condition: stable Disposition: same day Brief History: Patient been seen and worked up in the outpatient setting for right shoulder pain.? Pt had an MRI which showed findings below.? Patient's failed conservative treatment and has weakness.? We talked about treatment options far as nonoperative and operative intervention.? We talked about risk benefits complication alternatives surgical nonsurgical treatment options.? Understanding risk of surgery she agrees to proceed with surgical intervention.? All questions have been answered at this time.? Patient elects proceed with surgery and consent obtained in preop for right shoulder diagnostic and surgical arthrosco py with acromioclavicular joint resection, subacromial decompression, possible rotator cuff debridmement versus repair, possible biceps tenotomy versus tenodesis. MR/MR shoulder RT wo con* [id number] IMPRESSION: 1. Severe AC joint arthritis. 4.5 mm osteophyte from the distal clavicle encroaches upon and deforms the myotendinous portion of the supraspinatus. 2. Subluxation biceps tendon from the bicipital groove. 3. Biceps tendon is dislocated medial to the subscapularis tendon. This is seen with subscapularis tendon tears. There is loss of the normal signal in the distal subscapularis tendon through which the biceps tendon has dislocated. 4. Tendinopathy in the distal supraspinatus tendon but no tear. 5. Abnormal contour of the posterior glenoid labral junction. Suspect there may be an old avulsion from the glenoid. The adjacent labrum is normal signal but globular. Procedure: Patient seen evaluated in the preoperative holding area.? Consent reviewed and signed with patient.? Once again reviewed patient's MRI results as well as? planned surgical intervention.? Correct extremity marked.? Patient seen evaluated by anesthesia department received regional anesthesia.? Once ready for surgery was taken back to the operative suite.? Patient then subsequently underwent anesthesia per the anesthesia department was transported onto the OR table.? Patient was then placed into a lateral decubitus position with a beanbag and was appropriately secured to the bed.? All bony prominences well-padded.? Patient then had the right upper extremity was then prepped and draped in standard orthopedic fashion.? Patient received appropriate preoperative antibiotics.? Final timeout performed. The right upper extremity was then held in hanging from traction utilizing sterile technique.? Next started with standard diagnostic and surgical arthroscopy with posterior portal position introduced arthroscope into the glenohumeral joint.? Visualized the glenohumeral joint I then introduced a spinal needle within the?rotator?cuff?interval to confirm appropriate anterior portal placement.? Once this was confirmed I then made my small incision and then introduced my arthroscopic shaver into the glenohumeral joint.? Patient was found to have a tear at the upper third border of the subscapularis tendon which was the cause of patient's unstable bicep anchor as result plan was for subscapularis tendon repair and biceps tenodesis. patient had biceps tendon tearing as well as Superior labral tear. Patient had appreciable unstable biceps anchor most pronounced in the superior labrum. Given there appears to be healthy intra-articular tendon plan was for an intra- articular biceps tenodesis at the superior portion as it enters the intertu bercular groove. Thermal wand introduced into the rotator interval. I then release of the rotator interval to have appropriate visualization and the ability to perform biceps tenodesis. At this point I established a purple passport cannula which was introduced. Next I performed an Arthrex loop and tap biceps tenodesis. Passer was then made around the tendon luggage tag stitch around and then thru the tendon per Arthrex protocol, I then utilized a thermal wand to release the biceps tendon at the anchor to perform with tenotomy. Next I utilized a arthroscopic scorpion and the suture passer from the tenodesis kit to make a passed through the upper third border at the site of the tear of the subscapularis tendon I utilized a fiber link suture to luggage tag this and then subsequently purchase through the tendon again I had bluntly freed up adhesions anteriorly and posteriorly so I had direct visualization of just passing this through the upper third border the subscapularis tendon once this had excellent purchase I then loaded this into the Arthrex 4.75 swivel lock in addition to loading the suture from the bicep tenodesis. A punch was then placed in appropriate position at the entry point into the intertubercular groove just superior to the subscapularis tendon. Punch was then introduced to the appropriate depth. The suture loaded on the swivel lock was then advanced held under appropriate tension and shoulder lock anchor was then advanced and had excellent fixation. Excess suture was then cut biceps tenodesis and subscapularis tendon repair was complete. I then utilized a thermal wand to seal the edges of the superior labrum. ?Next there was labral tearing at biceps anchor and circumferential.? ? I then subsequently utilized a a arthroscopic shaver and thermal wand to perform a labral debridement.? No unstable bicep anchor posteriorly. This point time I then visualized the glenohumeral joint.? The glenohumeral joint was found to have grade 2? chondromalacia throughout.? Axillary pouch was free of loose bodies from viewing the posterior portal.? Flushing of the joint there was evidence patient did have a loose body in the glenohumeral space as well as within the recess in front of the subscapularis tendon. I then utilized an arthroscopic grasper was able to grasp and remove the loose body which was removed atraumatically. Next a visualized the?rotator?cuff?superiorly and there was found to be a some under surface of the supraspinatus some fraying and subsequently gently gentle rotator cuff debridement. No full-thickness tear and negative escape bubble sign of the rotator cuff superiorly. Small undersurface tearing of the supraspinatus tendon.? ? This completed my work within the glenohumeral joint all fluid was suctioned free of the joint.? ?Next I reintroduced the arthroscope posteriorly.? And went to the subacromial space.? I established my lateral working portal. Thermal wand was then introduced laterally and then I subsequently performed extensive bursectomy of the subacromial space.? Patient had a large anterior bone spur.? At this point time I proceeded with my AC joint resection thermal wand was used and track to the anterior edge of the acromion and then tracked all the way to the AC joint.? Once identified the AC joint this was very arthritic in nature.? Thermal wand was placed anteriorly to establish appropriate plane for AC joint resection.? Once appropriate margins and anterior inferior and anterior capsule was released I then introduced arthroscopic shaver and a bur and performed AC joint resection of both the acromion to cope plane at the AC joint and a distal clavicle resection was then performed totaling 1 cm in size and was confirmed.? This completed my AC joint resection and I then introduced the arthroscopic shaver laterally while continuing to view posteriorly.? I then performed an acromioplasty to complete my subacromial decompression prior to evaluating rotator cuff in the subacromial space. Subsequently performed the complete bursectomy had direct visualization of the rotator cuff the rotator cuff bursal space was completely intact no evidence of rotator cuff tear. Shoulder was taken through range of motion and was intact with no tearing. ?I then switched the arthroscope to the lateral portal to confirm no rotator cuff tear.? ?Next I then introduced the arthroscopic shaver and power rasp posteriorly to complete my subacromial decompression appropriate complaining all the way up to the lateral edge of the acromion.? This completed the surgery.? All fluid was suctioned from the shoulder.? All instruments were removed.? The lateral incision was then closed with nylon stitches.? As well as the portal sites closed with portal nylon stitches.? Xeroform 4 x 4's ABD and tape was then applied to the right shoulder and was placed into a shoulder abduction pillow sling for?bicep tenodesis and subscapularis tendon repair.? Patient was then awakened from anesthesia and then taken back to PACU in stable condition.? Patient tolerated procedure without any issues. Disposition: Patient taken back in stable condition recovering well.? Dressings on in place clean dry and intact.? Will be nonweightbearing to the right upper extremity.? Patient to follow-up with me in the office in 2 weeks.? Patient will receive appropriate discharge instruction as well as pain medication pos toperatively.? All questions answered.? We will contact the office for any questions or concerns.
--- NOTE | 2025-02-11 14:16 | PM.PACU ---
PACU note Narrative: Patient is a 49-year-old female that just underwent a right shoulder arthroscopy. Patient transferred to PACU in stable condition. Pain is well controlled. shoulder Dressing on , dry and in place. Patient's operative arm is in a shoulder immobilizer. Patient is awake and alert and able to respond to my questions accordingly. Patient's fingers are warm with good perfusion. Normal cap refill under 2 seconds. Unable to assess further range of motion in arm due to sling. Unable to assess sensation due to residual block. Exam: somnolent, arousable Disposition: discharged
[2025-02-11] MEDS: ondansetron 2 mg/ML SDV 2 mL 4 MG IVP (15:05)
--- NOTE | 2025-02-11 16:37 | SUR.PHASEII ---
Patient ambulated through department on RA. Current room air sat 94%.
--- NOTE | 2025-02-11 17:05 | ANE.PACU2 ---
Inpatient post-anesthesia follow up: Airway intact: Yes Vital signs: Temperature 97.6 F Pulse Rate 85 Respiratory Rate 16 Blood Pressure 117/74 Pulse Oximetry 95 Oxygen Delivery Me thod Room Air Oxygen Flow Rate 0.5 Fraction of Inspir ed Oxygen Hydration adequate: Yes Nausea and vomiting: No Pain level: 1 Mental status: Baseline
== END 2025-02-11 17:05 | disposition home or self-care (01) ==
PROVIDERS: Student in an Organized Health Care Education/Training Program; PCP Family Medicine; Visit Provider Student in an Organized Health Care Education/Training Program
PROC: (CPT 29805; principal; 2025-02-11 13:00)
PROC: (CPT 23120; 2025-02-11 13:00)
PROC: (CPT 29826; 2025-02-11 13:00)
PROC: (CPT 29828; 2025-02-11 13:00)
PROC: (CPT 29828; 2025-02-11 13:00)
PROC: (CPT 29827; 2025-02-11 13:00)
PROC: (CPT 29828; 2025-02-11 13:00)
DX: M19.011 Primary osteoarthritis, right shoulder (principal); M75.41 Impingement syndrome of right shoulder; S46.811A Strain of other muscles, fascia and tendons at shoulder and upper arm level, right arm, initial encounter; S43.081A Other subluxation of right shoulder joint, initial encounter; X58.XXXA Exposure to other specified factors, initial encounter; M75.21 Bicipital tendinitis, right shoulder; M75.111 Incomplete rotator cuff tear or rupture of right shoulder, not specified as traumatic; M24.011 Loose body in right shoulder; I10 Essential (primary) hypertension; G47.33 Obstructive sleep apnea (adult) (pediatric); Z99.89 Dependence on other enabling machines and devices; K21.9 Gastro-esophageal reflux disease without esophagitis; Z79.891 Long term (current) use of opiate analgesic; Z79.01 Long term (current) use of anticoagulants; Z86.73 Personal history of transient ischemic attack (TIA), and cerebral infarction without residual deficits; Z86.718 Personal history of other venous thrombosis and embolism; F41.9 Anxiety disorder, unspecified; F33.8 Other recurrent depressive disorders
CPT/HCPCS: 29828; 29823; 29824; 36415; 80048; 85610; C1713; J0131; J0169; J0690; J1100; J1885; J2250; J2405; J2704; J2710; J3010; J3490; J7030; J9999

== ENCOUNTER → 2025-02-24 14:37 | Outpatient (BNVA) | payer MEDICARE, SELFPAY | PROVIDERS: PCP Family Medicine; Visit Provider Physician Assistant | DX: Z98.890 Other specified postprocedural states (principal) | CPT/HCPCS: 99024 ==

== ENCOUNTER 2025-02-25 12:22 | Oncology outpatient (recurring) (ONCR) | payer MEDICARE, SELFPAY ==
[2025-02-25 13:13] LABS: Hematocrit 42.0 % (36-47); Hemoglobin 14.00 g/dL (11.27-16.99); Mean Corpuscular HGB Conc 33.3 g/dL (30-55); Mean Corpuscular Hemoglobin 30.8 pg (27-33); Mean Corpuscular Volume 92.5 fl (85-98); Nucleated Red Blood Cells % 0 %; Platelet Count 194 10^3/cmm (157-399); Red Blood Count 4.54 10^6/uL (3.85-5.65); White Blood Count 5.30 10^3/uL (3.29-11.43)
[2025-02-25] MEDS: methylPREDNISolone sod succ 40 mg/mL INJ IVP (13:42)
[2025-02-25 13:55] LABS: Alanine Aminotransferase 25 U/L (0-33); Albumin Level 4.0 g/dL (3.5-5.2); Alkaline Phosphatase 56 U/L (35-105); Aspartate Amino Transferase 23 U/L (0-32); Globulin 2.4 g/dL (1.3-4.6); Total Protein 6.4 g/dL (6.6-8.7)
[2025-02-25] MEDS: BELIMUMAB IV (14:28)
[2025-02-25] MEDS: SODIUM CHLORIDE 0.9% IV (14:28)
== END 2025-03-07 23:59 | disposition home or self-care (01) ==
PROVIDERS: PCP Family Medicine; Visit Provider Internal Medicine Rheumatology
DX: Z53.9 Procedure and treatment not carried out, unspecified reason; M32.9 Systemic lupus erythematosus, unspecified; Z79.899 Other long term (current) drug therapy
CPT/HCPCS: 80076; 82565; 85025; 86140; 96375; 96413; J0490; J2919; J7050; J9999

== ENCOUNTER 2025-03-29 07:49 | Oncology outpatient (recurring) (ONCR) | payer MEDICARE, SELFPAY ==
[2025-03-29] MEDS: methylPREDNISolone sod succ 40 mg/mL INJ IVP (10:34)
[2025-03-29] MEDS: BELIMUMAB IV (11:33)
[2025-03-29] MEDS: SODIUM CHLORIDE 0.9% IV (11:33)
[2025-03-29 12:39] VITALS: BP 113/76; PULSE 78; RESP 18; TEMP 36.2; O2SAT 95
== END 2025-04-07 23:59 | disposition home or self-care (01) ==
PROVIDERS: PCP Family Medicine; Visit Provider Internal Medicine Rheumatology
DX: M32.9 Systemic lupus erythematosus, unspecified (principal); Z79.899 Other long term (current) drug therapy
CPT/HCPCS: 96375; 96413; J0490; J2919; J7050; J9999

== ENCOUNTER 2025-04-02 17:48 | Emergency (ER) | payer MEDICARE, SELFPAY ==
[2025-04-02 18:10] VITALS: BP 133/73; PULSE 81; RESP 16; TEMP 36.8; O2SAT 98; BMI 40.7
--- NOTE | 2025-04-02 18:21 | W.ED.ANIMALB ---
HPI - Animal Bite General: Chief Complaint: Animal Bite Stated Complaint: animal bite Time Seen by Provider: 04/02/25 18:05 History of Present Illness: 49-year-old female presents emergency room complaining of a cat bite to the medial aspect of her left foot at the first MP joint. Last occurred yesterday. The cat has a stray cat but they have been caring for it for some time that is very ill-appearing but is still alive. It is still in their custody. She has a history of lupus and does not receive monoclonal antibody infusions. Associated symptoms: Deny chills or fever(s) Related Data Home Medications ?Medication ?Instructions ?Recorded ?Confirmed belimumab 120 mg intravenous 120 mg IV .QMONTH 01/16/22 02/24/25 solution (Benlysta) acetaminophen 500 mg capsule 1,000 mg PO BID 04/30/23 02/24/25 dicyclomine 10 mg capsule 10 mg PO DAILY 02/10/25 02/24/25 lisinopril 40 mg tablet 40 mg PO QPM 02/10/25 02/24/25 prednisone 20 mg tablet 20 mg PO DIRECTED PRN joint 02/10/25 02/24/25 pain flare sertraline 100 mg tablet 100 mg PO BID 02/10/25 02/24/25 sumatriptan succinate 100 mg 100 mg PO DIRECTED 02/10/25 02/24/25 tablet (Imitrex) warfarin 6 mg tablet 6 mg PO DAILY 02/10/25 02/24/25 Previous Rx's ?Medication ?Instructions ?Recorded C- PAP AND SUPPLIES #1 ea 01/09/22 Hinge Knee Brace #1 ea 08/15/22 spironolactone 50 mg tablet 50 mg PO DAILY #90 tabs 06/29/24 sucralfate 100 mg/mL oral 10 ml PO BID 30 days #600 mL 09/14/24 suspension (Carafate) bupropion HCl 300 mg 24 hr tablet, 300 mg PO QAM #90 tabs 10/30/24 extended release (Wellbutrin XL) azathioprine 50 mg tablet 100 mg (2 x 50 mg) PO BID #120 tabs 12/22/24 hydroxychloroquine 200 mg tablet 200 mg PO BID #180 tabs 12/22/24 prednisone 5 mg tablet 5 mg PO DAILY #90 tabs 12/22/24 hydrocodone 5 mg-acetaminophen 325 1 tab PO BID PRN pain 30 days #60 01/26/25 mg tablet tabs enoxaparin 120 mg/0.8 mL 120 mg (0.8 mL) SUBCUT Q12H #16 mL 01/29/25 subcutaneous syringe (Lovenox) pantoprazole 40 mg tablet,delayed See Rx Instructions .Route 02/22/25 release .COMPLEX #180 tabs trazodone 100 mg tablet See Rx Instructions .Route 03/09/25 .COMPLEX #180 tabs hydrochlorothiazide 12.5 mg tablet See Rx Instructions .Route 03/30/25 .COMPLEX #90 tabs hydrocodone 5 mg-acetaminophen 325 1 tab PO Q6H PRN pain 5 days #20 03/30/25 mg tablet tabs amoxicillin 875 mg-potassium 1 tab PO BID #14 tabs 04/02/25 clavulanate 125 mg tablet Allergies Allergy/AdvReac Type Severity Reaction Status Date / Time Sulfa (Sulfonamide Allergy Unknown Verified 02/24/25 15:43 Antibiotics) sulfasalazine AdvReac GI adverse Verified 02/24/25 15:43 reactions Review of Systems Const: Denies: fever(s) or chills Card: Denies: chest pain Resp: Denies: dyspnea GI: Denies: abdominal pain : Denies: dysuria, urinary frequency or urinary urgency Musc: Denies: neck pain or back pain Skin/Breast: Denies: rash PFSH ED PFSH: Medical History Right shoulder pain Chronic back pain Osteoarthritis History of diverticulitis TIA (transient ischemic attack) left Bursitis Sleep apnea Immunization counseling High risk medication use Primary antiphospholipid syndrome SLE (systemic lupus erythematosus related syndrome) DVT (deep venous thrombosis) Essential hypertension Acid reflux Insomnia disorder Prediabetes Lupus SLE Binge eating disorder Generalized anxiety disorder Major depressive disorder, recurrent severe without psychotic features Surgical History History of repair of ACL Hx of carpal tunnel repair bilateral History of esophagogastroduodenoscopy (EGD) History of endometrial ablation Hx of arthroscopy of knee left knee Family History Other Diabetes Palpitations Tachycardia Social History Smoking and tobacco/nicotine status: former use of tobacco/nicotine Alcohol intake: never Substance/Drug Use: never Physical Exam Const: COMMON NORMALS: no acute distress GENERAL APPEARANCE: cooperative and comfortable ORIENTATION/CONSCIOUSNESS: Yes awake, Yes oriented to person, Yes oriented to place and Yes oriented to time HENMT: COMMON NORMALS: normocephalic, atraumatic and hearing grossly normal bilaterally HEAD & SCALP: normocephalic and atraumatic Resp: COMMON NORMALS: normal respiratory effort, No retractions, No use of accessory muscles and clear to auscultation bilaterally AUSCULTATION: clear to auscultation bilaterally Cardio: COMMON NORMALS: regular rate, regular rhythm and No murmurs present (Cardio) RATE: regular rate RHYTHM: regular rhythm Extremity: OTHER: Bite thomas from previous fall puncture wounds over the medial aspect of the left first MP joint no active drainage no localized redness or inflammation. Dry eschars in place no localized redness erythema or induration Neuro: SENSORIUM/ORIENTATION: Yes oriented to person, Yes oriented to place and Yes oriented to time Skin: COMMON NORMALS: no rashes or lesions noted GENERAL SKIN EXAM: no rashes or lesions noted Course Vital Signs: Vital signs: Vital Signs Temperature 98.2 F 04/02/25 18:10 Pulse Rate 81 04/02/25 18:10 Respiratory Rate 16 04/02/25 18:10 Blood Pressure 133/73 04/02/25 18:10 Pulse Oximetry 98 04/02/25 18:10 Oxygen Delivery Me thod Room Air 04/02/25 18:10 MDM - Animal Bite Medical Decision Making Medical decision making Social determinants: None I reviewed the patient's medical record. I reviewed the patient's current home meds. Alternate historians: None Differential diagnosis: Cat bite, cellulitis, need for rabies postexposure prophylaxis Lab Review: None Imaging: None Assessment of risk Level of risk: Low moderate Hospitalization considerations: No indication for hospitalization Reexamination: Unchanged Assessment and plan: Rabies immunoglobulin and vaccine given after discussion with patient about different options of observing use and icing or initiating treatment she opted to initiate. Will also cover with oral antibiotics first dose given here prescription sent in for 7 days. Return if there is any sign of redness erythema or worsening swelling. Follow-up with outpatient rabies postexposure prophylaxis as indicated on discharge instructions No radiology studies performed this visit Discharge Plan Discharge Patient Disposition: Home Clinical Impression: Cat bite, SLE (systemic lupus erythematosus related syndrome) Condition: Stable Prescriptions: New amoxicillin-pot clavulanate 875-125 mg tablet 1 tab PO BID Qty: 14 0RF No Action azathioprine 50 mg tablet 100 mg PO BID Qty: 120 3RF hydroxychloroquine 200 mg tablet 200 mg PO BID Qty: 180 1RF prednisone 5 mg tablet 5 mg PO DAILY Qty: 90 1RF (DME) C- PAP AND SUPPLIES See Rx Instructions .Route .MEDSUPPLY Qty: 1 11RF Rx Instructions: 5-9cm Benlysta 120 mg recon soln 120 mg IV .QMONTH (DME) Hinge Knee Brace See Rx Instructions .Route .MEDSUPPLY Qty: 1 0RF Rx Instructions: As directed acetaminophen 500 mg capsule 1,000 mg PO BID hydrocodone-acetaminophen 5-325 mg tablet 1 tab PO BID PRN (Reason: pain) 30 Days Qty: 60 0RF enoxaparin [Lovenox] 120 mg/0.8 mL syringe 120 mg SUBCUT Q12H Qty: 16 0RF spironolactone 50 mg tablet 50 mg PO DAILY Qty: 90 0RF sucralfate [Carafate] 100 mg/mL suspension 10 ml PO BID 30 Days Qty: 600 3RF bupropion HCl [Wellbutrin XL] 300 mg tablet extended release 24 hr 300 mg PO QAM Qty: 90 1RF pantoprazole 40 mg tablet,delayed release (DR/EC) See Rx Instructions .ROUTE .COMPLEX Qty: 180 1RF Dose Instruction: TAKE 1 TABLET BY MOUTH TWICE DAILY Rx Instructions: TAKE 1 TABLET BY MOUTH TWICE DAILY trazodone 100 mg tablet See Rx Instructions .ROUTE .COMPLEX Qty: 180 0RF Dose Instruction: TAKE 2 TABLETS BY MOUTH AT BEDTIME Rx Instructions: TAKE 2 TABLETS BY MOUTH AT BEDTIME hydrochlorothiazide 12.5 mg tablet See Rx Instructions .ROUTE .COMPLEX Qty: 90 0RF Dose Instruction: TAKE 1 TABLET BY MOUTH EVERY DAY Rx Instructions: TAKE 1 TABLET BY MOUTH EVERY DAY hydrocodone-acetaminophen 5-325 mg tablet 1 tab PO Q6H PRN (Reason: pain) 5 Days Qty: 20 0RF sumatriptan succinate [Imitrex] 100 mg tablet 100 mg PO DIRECTED Rx Instructions: take 1 tab at onset of headache; if no relief, may repeat 1 tab after at least 2 hrs; max = 2 tabs/24 hrs PO prednisone 20 mg tablet 20 mg PO DIRECTED PRN (Reason: joint pain flare) Rx Instructions: take 1 or 2 tab daily for up to 7 days as needed for arthritis flare PO PRN; sertraline 100 mg tablet 100 mg PO BID Rx Instructions: TAKE 2 TABLETS BY MOUTH EVERY DAY warfarin 6 mg tablet 6 mg PO DAILY Rx Instructions: TAKE 1 TABLET BY MOUTH EVERY DAY lisinopril 40 mg tablet 40 mg PO QPM Rx Instructions: TAKE 1 TABLET BY MOUTH EVERY DAY dicyclomine 10 mg capsule 10 mg PO DAILY Rx Instructions: take 1 capsule BY MOUTH TWICE DAILY Discharge Orders: Discharge ED (Routine); Ordered 04/02/25 Ordered By: Espinoza Arana Referrals: Kendy Smith DO [Primary Care Provider, Family Practice] Discharge Diet: Usual diet Discharge Activity: Resume usual activity Patient Instructions: Rabies Vaccine (By injection) (Imovax Rabies, RabAvert), Rabies Immune Globulin (By injection), Animal Bite (ED), Rabies (ED), Opioid Safety, Pain Management, Patient Portal & Katja Instructions Activity Restrictions/Additional Instructions: Thank you for choosing [facility] for your healthcare needs today. It is very important that you follow up as instructed or that you return to the Emergency Department should you have concerns or if your condition changes or worsens in any way. Emergency department visits are focused on emergent conditions, in some cases you may require further evaluation on an outpatient basis. You were seen in the emergency room after a cat bite. Recommend starting oral antibiotics 1 pill twice a day for 7 days. Additionally after discussion you opted to initiate the rabies postexposure prophylaxis. You are given the initial rabies immunoglobulin and the first vaccine shot here in the emergency room and recommend you follow-up with the remaining course as an outpatient. (Please note that included in your discharge packet is information concerning opioid safety and pain management. This information is given to all patients were discharged from the ER regardless of their discharge diagnosis or the medicines they usually take or are prescribed.) Print Language: Italian Coding Level of Care Code ED Ground [employer] Installer for Dariela Poon
[2025-04-02 19:29] VITALS: BP 138/86; PULSE 79; O2SAT 100
== END 2025-04-02 19:29 | disposition home or self-care (01) ==
PROVIDERS: Emergency Provider Family Medicine; PCP Family Medicine
DX: S91.352A Open bite, left foot, initial encounter (principal); W55.01XA Bitten by cat, initial encounter; M32.9 Systemic lupus erythematosus, unspecified; Z79.01 Long term (current) use of anticoagulants; Z87.891 Personal history of nicotine dependence; I10 Essential (primary) hypertension; Z86.73 Personal history of transient ischemic attack (TIA), and cerebral infarction without residual deficits
CPT/HCPCS: 99283; J9999